=== PATIENT | male | born 1940 | race Caucasian/White ===

== ENCOUNTER 2018-09-11 07:43 | Day surgery (SDC) | payer MEDICARE, OTHER, SELFPAY ==
[2018-09-11] MEDS: PROPARACAINE 0.5% OPHTH SOL 2 DROPS EYE-OP (08:50)
[2018-09-11 08:51] VITALS: BMI 22.4
[2018-09-11] MEDS: CATARACT EYE COMPOUND (10 DROPS/SYRINGE) 3 DROPS EYE-OP (09:00)
[2018-09-11 09:05] VITALS: BP 179/92; PULSE 62; RESP 18; TEMP 36.4; O2SAT 99
--- NOTE | 2018-09-11 09:37 | SUR.OPER ---
Supine on eye stretcher, head on extension cradle secured with tape. Arms tucked at sides with blanket. Pillow under knees.
[2018-09-11] MEDS: CHONDROIDTIN/SOD HYALURONATE 1.05 ML SYRINGE INTRAOCULA (09:39)
[2018-09-11] MEDS: MOXIFLOXACIN OPHTH DROPS 3 ML BOTTLE 2 DROPS INJ (09:40)
[2018-09-11] MEDS: PHENYLEPHRINE/LIDOCAINE VIAL (OR) 0.2 ML EYE-OP (09:40)
[2018-09-11] MEDS: LIDOCAINE JELLY 2% 5 ML 1 APPLIC TOP (09:40)
[2018-09-11] MEDS: BALANCED SALT IRRIG SOLN NO.2 500 ML, EPINEPHrine 1 MG IRR (09:41)
[2018-09-11] MEDS: TRIAMCINOLONE 50 MG/5 ML VIAL INJ (09:41)
[2018-09-11] MEDS: TETRACAINE 0.5% OPHTH DROPS 15 ML 2 DROPS EYE-LEFT (09:41)
--- NOTE | 2018-09-11 09:48 | P.OP.PRE_ITS ---
Pre-operative Note Interval Note Changes: No
--- NOTE | 2018-09-11 09:48 | PM.PREOP ---
Pre-operative Note Interval Note Changes: No
--- NOTE | 2018-09-11 09:49 | P.OP_ITS ---
Operative Date/Time/Diagnoses Pre-op diagnosis: Nuclear Cataract Left eye Post-op diagnosis: same Procedure & Clinicians Surgeon: Kofi Gutierrez Anesthesia Type: MAC +/- and Sedation Operative Notes Procedure in detail: Patient brought to the operating suite. Tetracaine drops placed in the left eye. Patient was prepped and draped in sterile manner. Wire lid speculum was placed in the eye. Betadine drops were placed on the eye. This was irrigated. Lidocaine jelly was placed on the eye. A paracentesis port was created with a side-port blade. 0.1 mL 1% preservative free lidocaine was injected into the anterior chamber. The anterior chamber was deepened with viscoelastic. 2.6 mm keratome was used to create a temporal clear corneal incision. Cystotome and Utrata forceps were used to create continuous tear capsulorrhexis. Balanced salt solution was used to hydro dissect the nucleus. The phacoemulsification handpiece was inserted and the nucleus was removed using the stop and chop technique. The irrigation aspiration handpiece was inserted and the remaining cortex was removed. Anterior chamber was deepened with viscoelastic. An Sol ZCB00 intraocular lens with a power of 19.5 was injected into the capsular bag. Irrigation aspiration handpiece was inserted and the remaining viscoelastic was removed. Incision was hydrated with balanced salt solution and found to be leak free with pressure with Weck- Carolyn sponges. 0.1 mL Vigamox injected anterior chamber. 0.3 mL Kenalog 10 mg was injected subconjunctivally. Lid speculum was removed. The patient left the operating room in excellent condition. Complications: none Condition: stable Disposition: same day surgery
[2018-09-11 09:58] VITALS: BP 153/82; PULSE 54; RESP 18; TEMP 36.3; O2SAT 99
== END 2018-09-11 10:09 | disposition home or self-care (01) ==
LOC: OR 07:51
PROVIDERS: PCP Internal Medicine; Visit Provider Ophthalmology
DX: H25.12 Age-related nuclear cataract, left eye (principal)
CPT/HCPCS: J0171; J2250; J3010; J3301

== ENCOUNTER 2018-09-25 08:37 | Day surgery (SDC) | payer MEDICARE, OTHER, SELFPAY ==
[2018-09-25 09:43] VITALS: BP 182/93; PULSE 56; RESP 16; TEMP 36; O2SAT 98; BMI 22.5
[2018-09-25] MEDS: PROPARACAINE 0.5% OPHTH SOL 2 DROPS EYE-OP (09:48)
[2018-09-25] MEDS: CATARACT EYE COMPOUND (10 DROPS/SYRINGE) 3 DROPS EYE-OP (09:50)
--- NOTE | 2018-09-25 10:56 | P.OP.PRE_ITS ---
Pre-operative Note Interval Note Changes: No
--- NOTE | 2018-09-25 10:56 | P.OP_ITS ---
Operative Date/Time/Diagnoses Pre-op diagnosis: Nuclear cataract right eye Procedure & Clinicians Procedure: Cataract Surgery Same procedure as scheduled: Yes Surgeon: Kofi Gutierrez Anesthesia Type: MAC +/- and Sedation Operative Notes Procedure in detail: Patient brought to the operating suite. Tetracaine drops placed in the right eye. Patient was prepped and draped in sterile manner. Wire lid speculum was placed in the eye. Betadine drops were placed on the eye. This was irrigated. Lidocaine jelly was placed on the eye. A paracentesis port was created with a side-port blade. 0.1 mL 1% preservative free lidocaine was injected into the anterior chamber. The anterior chamber was deepened with viscoelastic. 2.6 mm keratome was used to create a temporal clear corneal incision. Cystotome and Utrata forceps were used to create continuous tear capsulorrhexis. Balanced salt solution was used to hydro dissect the nucleus. The phacoemulsification handpiece was inserted and the nucleus was removed using the stop and chop technique. The irrigation aspiration handpiece was inserted and the remaining cortex was removed. Anterior chamber was deepened with viscoelastic. An Sol ZCB00 intraocular lens with a power of 19.5 was injected into the capsular bag. Irrigation aspiration handpiece was inserted and the remaining viscoelastic was removed. Incision was hydrated with balanced salt solution and found to be leak free with pressure with Weck- Carolyn sponges. 0.1 mL Vigamox injected anterior chamber. 0.3 mL Kenalog 10 mg was injected subconjunctivally. Lid speculum was removed. The patient left the operating room in excellent condition. Complications: none Condition: stable Disposition: same day surgery
--- NOTE | 2018-09-25 10:56 | PM.PREOP ---
Pre-operative Note Interval Note Changes: No
--- NOTE | 2018-09-25 11:05 | SUR.OPER ---
Supine on eye stretcher, head on extension cradle secured with tape. Arms tucked at sides with blanket. Pillow under knees.
[2018-09-25] MEDS: LIDOCAINE JELLY 2% 5 ML 1 APPLIC TOP (11:07)
[2018-09-25] MEDS: CHONDROIDTIN/SOD HYALURONATE 1.05 ML SYRINGE INTRAOCULA (11:07)
[2018-09-25] MEDS: MOXIFLOXACIN OPHTH DROPS 3 ML BOTTLE 2 DROPS INJ (11:07)
[2018-09-25] MEDS: TETRACAINE 0.5% OPHTH DROPS 15 ML 2 DROPS EYE-RIGHT (11:08)
[2018-09-25] MEDS: PHENYLEPHRINE/LIDOCAINE VIAL (OR) 0.2 ML EYE-OP (11:08)
[2018-09-25] MEDS: TRIAMCINOLONE 50 MG/5 ML VIAL INJ (11:09)
[2018-09-25] MEDS: BALANCED SALT IRRIG SOLN NO.2 500 ML, EPINEPHrine 1 MG IRR (11:09)
[2018-09-25 11:22] VITALS: BP 151/91; PULSE 53; RESP 16; TEMP 36.3; O2SAT 99
[2018-09-25 11:39] VITALS: BP 153/88; PULSE 58; RESP 16; TEMP 36; O2SAT 96
== END 2018-09-25 11:44 ==
LOC: OR 08:38
PROVIDERS: PCP Internal Medicine; Visit Provider Ophthalmology
DX: H25.11 Age-related nuclear cataract, right eye (principal)
CPT/HCPCS: J0171; J2250; J3010; J3301

== ENCOUNTER 2022-01-10 07:57 | Inpatient (IN) | payer MEDICARE, OTHER, SELFPAY ==
[2022-01-10] VITALS (15 sets, daily range): BP systolic 135–171; BP diastolic 73–100; PULSE 55–79; RESP 16–22; TEMP 36.1–36.6; O2SAT 93–96; BMI 20.5
--- NOTE | 2022-01-10 08:08 | DI.RAD.S_ITS ---
PROCEDURE: XR CHEST 1V INDICATIONS: shortness of breath TECHNIQUE: One view of the chest was acquired. COMPARISON: None. FINDINGS: Surgical changes and devices: None. Lungs and pleura: Lungs are clear. No pleural effusions or pneumothorax. Mediastinum: Mediastinal contours appear normal. Heart size is normal. Bones and chest wall: No suspicious bony lesions. Overlying soft tissues appear unremarkable. IMPRESSION: No acute cardiopulmonary abnormality. Dictated by: Jaime Harper M.D. on 01/10/2022 at 8:41 Approved by: Jaime Harper M.D. on 01/10/2022 at 8:42
--- NOTE | 2022-01-10 08:23 | ED.SOB ---
HPI - SOB/Dyspnea General Chief Complaint: Shortness of Breath/Dyspnea Stated Complaint: Trouble breathing Time Seen by Provider: 01/10/22 08:09 Source: patient Mode of arrival: Wheelchair Limitations: no limitations History of Present Illness HPI Narrative: This is an 81-year-old male who comes emergency department with complaint of episodes of shortness of breath and chest tightness that started 3 or 4 days ago. It 1st episode he was walking up hill he had to stop it resolved and he returned home he has had 6-7 episodes in the past 3 days he states initially it was just when he was upright or exerting himself when resolved quickly after a minute or 2 the length in strength of the episodes has been increasing. Today it will come up from sleep at 6:00 a.m. persisted and continued even if he took a couple steps it would return. Martin like and squeezing across his chest. He has felt a little bit dizzy and lightheaded but has not had any syncope. No diaphoresis. No nausea or vomiting. No fevers no cold, cough or congestive symptoms. Occasionally has diarrhea but not persistently and no melena or hematochezia. He has not any changes to urine output. He and his have noted some slight redness on the dorsum of his foot and occasional swelling but not persistently. No swelling today but there is some redness they states that is been there for several months. Has a history of stage 4 chronic kidney disease, his only medication is Tylenol. He has a history of hypertension and dyslipidemia but stopped his medications when he had spinal surgery and his family states he was never told to restart them. His average blood pressure is around 120. He does not take any aspirin. No history of diabetes. Had spinal surgery May 2021. He had a DVT during hospitalization for a fever and is suspected to have developed a DVT while in the hospital. He was on Eliquis for 3 months and then stopped then subsequently had his spinal surgery. No allergies to medication. Former smoker quit 40 years ago, has 2 glasses of wine daily, no illicit. His primary care is Dr. Thompson. His coal screener is Dr. Gipson. He and his state that there has been no discussion about dialysis. Related Data Home Medications Medication Instructions Recorded Confirmed acetaminophen 500 mg tablet See Rx Instructions PO DAILY PRN 09/14/21 01/10/22 (Tylenol Extra Strength) tab Allergies Allergy/AdvReac Type Severity Reaction Status Date / Time No Known Drug Allergies Allergy Verified 01/10/22 09:21 Review of Systems Review of Systems ROS Unobtainable: All systems reviewed & are unremarkable except as noted in HPI and below Patient History Medical History Chronic back pain Chronic migraine Chronic renal failure, stage 4 (severe) DVT (deep venous thrombosis) (~12/2020) Mild cognitive impairment Parkinsons disease (~12/2020) Surgical History S/P spinal surgery (~05/2021) Family History Mother No problems noted. Social History household members: spouse Smoking Status: Former smoker Smoking Status: Former smoker alcohol intake frequency: 0-2 drinks per day Alcohol type: wine Substance Use Type: does not use Exam Narrative Exam Narrative: GENERAL: Alert and oriented x three, thin elderly male in mild distress. HEENT: Head normocephalic, atraumatic, EOMI, pupils reactive, face symmetric, moist mucous membranes NECK: Supple, full range of motion CARDIOVASCULAR: Regular rate and rhythm without murmurs, rubs or gallops. No JVD. No swelling bilateral lower extremities. RESPIRATORY: Breath sounds equal bilaterally, no wheezes rales or rhonchi. No tachypnea accessory muscle use. Speaks in full sentences. ABDOMEN: Soft, nontender. Normoactive bowel sounds all 4 quadrants. No guarding or rebound, rigidity, no mass : No CVA tenderness EXTREMITIES: Normal range of motion, no clubbing or edema. Neurovascularly intact. 2+ dorsalis pedis bilaterally. Patient does have some slight erythema over the dorsum of the foot which appears more consistent with hyperpigmentation than cellulitic change. NEUROLOGICAL: Cranial nerves II through XII grossly intact. Moving all extremities SKIN: Warm, dry, no petechiae, no rashes or lesions otherwise noted. Initial Vital Signs Initial Vital Signs: Vital Signs Pulse Rate 75 01/10/22 08:00 Respiratory Rate 18 01/10/22 08:00 Blood Pressure 167/82 H 01/10/22 08:00 Pulse Oximetry 96 01/10/22 08:00 Course Orders Ordered: ED Orders 01/10/22 12:26 EKG-12 Lead DAILY 01/10/22 12:26 EC echo doppler complete Urgent 01/10/22 15:53 PTT [Partial Thromboplastin Time] Q6H Troponin I Q8H 01/11/22 00:30 Troponin I Q8H 01/11/22 03:15 PTT [Partial Thromboplastin Time] Q6H 01/11/22 05:00 Basic Metabolic Panel Routine Hemoglobin and Hematocrit DAILY 01/11/22 09:15 PTT [Partial Thromboplastin Time] Q6H Partial Thromboplastin Time DAILY 01/12/22 09:15 Partial Thromboplastin Time DAILY 01/13/22 09:15 Partial Thromboplastin Time DAILY 01/14/22 09:15 Partial Thromboplastin Time DAILY 01/15/22 09:15 Partial Thromboplastin Time DAILY 01/16/22 09:15 Partial Thromboplastin Time DAILY Acetaminophen (Acetaminophen 325 Mg Tablet) 650 mg PO Q6HR PRN PRN Reason: Pain, Mild (1-3) Heparin Sodium/Dextrose (Heparin Drip) 25,000 unit in 500 mls @ 24 mls/hr IV CONT OFE; Protocol Last Titration: 01/10/22 17:45 Dose: 700 units/hr, 14 mls/hr Documented by: Titration: 01/10/22 16:45 Dose: 0 units/hr, 0 mls/hr Documented by: Titration: 01/10/22 12:18 Dose: 1,000 units/hr, 20 mls/hr Documented by: Titration: 01/10/22 09:48 Dose: 1,000 units/hr, 20 mls/hr Documented by: Admin: 01/10/22 09:21 Dose: 1,200 units/hr, 24 mls/hr Documented by: ROHIT Metoprolol Tartrate (Metoprolol Ir 25 Mg Tablet) 25 mg PO BID [facility] Morphine Sulfate (Morphine 2 Mg/Ml Inj) 2 mg IV Q5MIN PRN PRN Reason: Chest Pain Naloxone HCl (Naloxone 0.4 Mg/Ml Vial) 0.2 mg IV Q2MIN PRN PRN Reason: Opiate Reversal Nitroglycerin (Nitroglycerin 0.4 Mg Sl Tab) 0.4 mg SL [id number] PRN PRN Reason: Chest Pain Nitroglycerin (Nitroglycerin Oint 1 Inch/Gm Oint...G.) 0.5 inch TOP 0900,1500 OFE Last Admin: 01/10/22 16:00 Dose: 0.5 inch Documented by: TAMRA Discontinued Medications Aspirin (Aspirin 81 Mg Chew Tab) 324 mg PO NOW ONE Stop: 01/10/22 09:10 Last Admin: 01/10/22 09:20 Dose: 324 mg Documented by: ROHIT Heparin Sodium (Porcine) (Heparin 5,000 Unit/Ml Vial) 7,500 unit IV NOW ONE Stop: 01/10/22 09:10 Last Admin: 01/10/22 09:19 Dose: 7,500 unit Documented by: ROHIT Reevaluation(s) Reevaluation #1: Spoke with family updated them on findings today. Time: 09:23 Consultations Consultation #1: Dr. Greene, we discussed patient appears to have NSTEMI versus PE, positive troponin, BNP but in the setting of chronic kidney disease and elevated renal function unable to scan for PE. Patient does have a DVT found in his right lower extremity. Recommends aspirin, heparin, echo in V/Q scan, he states based on patient's renal function that troponin is somewhat on reliable and recommends serial trending. In pharmacology goal perfusion scan when appropriate. Time: 09:24 Consultation #2: Dr. Thompson, accepts for admission. And STEMI versus PE. Patient's renal function precludes us from obtaining angiography. Recommendations of Cardiology were discussed. Dr. Thompson will take over care for the patient. He has been started on aspirin as well as heparin he is chest pain-free so has not had any nitro. Vital Signs Vital signs: Vital Signs - 8 hr 01/10/22 08:00 01/10/22 08:15 01/10/22 08:30 Pulse Rate 75 69 66 Respiratory Rate 18 22 20 Blood Pressure 167/82 H 156/75 H 154/84 H Pulse Oximetry 96 96 95 01/10/22 09:00 01/10/22 09:30 01/10/22 10:00 Pulse Rate 68 63 60 Respiratory Rate 19 20 18 Blood Pressure 149/87 H 161/89 H 153/83 H Pulse Oximetry 94 96 95 01/10/22 10:30 Pulse Rate 59 L Respiratory Rate 18 Blood Pressure 152/97 H Pulse Oximetry 95 MDM - SOB/Dyspnea Lab Data Result diagrams: 01/10/22 08:10 01/10/22 08:10 Labs: Lab Results 01/10/22 01/10/22 01/10/22 Range/Units 08:10 08:10 08:10 WBC 6.3 (4.5-11.0) X10^3/uL RBC 4.32 L (4.5-5.9) X10^6/uL Hgb 13.1 L (13.5-17.5) g/dL Hct 38.9 L (41-53) % MCV 89.9 (80-100) fL MCH 30.3 (26-34) PG MCHC 33.7 (30-36) % RDW 14.9 H (11.6-14.8) % Plt Count 138 L (150-400) X10^3/uL Neut % (Auto) 67.3 (50-75) % Lymph % (Auto) 21.1 L (25-40) % [place] % (Auto) 9.2 (3-14) % Eos % (Auto) 1.8 L (2-4) % Baso % (Auto) 0.6 (0-2) % Neut # (Auto) 4200 (9602-2015) /uL Lymph # (Auto) 1300 (4766-5512) /uL [place] # (Auto) 600 (0-900) /uL Eos # (Auto) 100 (0-450) /uL Baso # (Auto) 0 (0-100) /uL APTT (26.4-36.2) SECONDS Sodium 139 (137-145) mmol/L Potassium 4.3 (3.4-5.1) mmol/L Chloride 109 H (98-107) mmol/L Carbon Dioxide 18 L (22-32) mmol/L BUN 40 H (9-20) mg/dL Creatinine 2.97 H (0.66-1.25) mg/dL Estimated GFR 20.4 L (>60) mL/min BUN/Creatinine Ratio 13.5 (6-22) Glucose 112 H (80-110) mg/dL Lactate 2.4 H (0.7-2.1) mmol/L Calcium 9.6 (8.4-10.2) mg/dL Total Bilirubin 0.7 (0.2-1.3) mg/dL AST 58 (17-59) IU/L ALT 31 (<50) IU/L Alkaline Phosphatase 96 (38-126) U/L Total Creatine Kinase (55-170) U/L CK-MB (CK-2) (<2.37) ng/mL CK-MB (CK-2) Rel Index (1.5-5.0) % Troponin I (0.01-0.034) ng/mL NT-Pro-B Natriuret Pep (<450) pg/mL Total Protein 8.0 (6.3-8.2) g/dL Albumin 4.5 (3.5-5.0) g/dL Globulin 3.5 (1.7-4.1) g/dL Albumin/Globulin Ratio 1.3 (1.0-2.8) SARS-CoV-2 (PCR) (Negative) 01/10/22 01/10/22 01/10/22 Range/Units 08:10 08:26 08:30 WBC (4.5-11.0) X10^3/uL RBC (4.5-5.9) X10^6/uL Hgb (13.5-17.5) g/dL Hct (41-53) % MCV (80-100) fL MCH (26-34) PG MCHC (30-36) % RDW (11.6-14.8) % Plt Count (150-400) X10^3/uL Neut % (Auto) (50-75) % Lymph % (Auto) (25-40) % [place] % (Auto) (3-14) % Eos % (Auto) (2-4) % Baso % (Auto) (0-2) % Neut # (Auto) (9456-6728) /uL Lymph # (Auto) (3884-1656) /uL [place] # (Auto) (0-900) /uL Eos # (Auto) (0-450) /uL Baso # (Auto) (0-100) /uL APTT 34 (26.4-36.2) SECONDS Sodium (137-145) mmol/L Potassium (3.4-5.1) mmol/L Chloride (98-107) mmol/L Carbon Dioxide (22-32) mmol/L BUN (9-20) mg/dL Creatinine (0.66-1.25) mg/dL Estimated GFR (>60) mL/min BUN/Creatinine Ratio (6-22) Glucose (80-110) mg/dL Lactate (0.7-2.1) mmol/L Calcium (8.4-10.2) mg/dL Total Bilirubin (0.2-1.3) mg/dL AST (17-59) IU/L ALT (<50) IU/L Alkaline Phosphatase (38-126) U/L Total Creatine Kinase 110 (55-170) U/L CK-MB (CK-2) 5.10 H (<2.37) ng/mL CK-MB (CK-2) Rel Index 4.6 (1.5-5.0) % Troponin I 0.159 H* (0.01-0.034) ng/mL NT-Pro-B Natriuret Pep 5540 H (<450) pg/mL Total Protein (6.3-8.2) g/dL Albumin (3.5-5.0) g/dL Globulin (1.7-4.1) g/dL Albumin/Globulin Ratio (1.0-2.8) SARS-CoV-2 (PCR) Negative (Negative) Imaging Data Chest x-ray: Radiologist's Impression: [address] [address] XRay Report Signed Patient: Drew Bradford MR#: [id number] : 1940 Acct:[id number] Age/Sex: 81 / M Date of Service: 01/10/22 Loc: ED Accession Number: [id number] ?? Procedure: XR chest 1V Ordering Provider: Elle Saavedra D.O. PROCEDURE:? XR CHEST 1V ? INDICATIONS:? shortness of breath ? TECHNIQUE:? One view of the chest was acquired.? ? COMPARISON:? None. ? FINDINGS:? ? Surgical changes and devices:? None.? ? Lungs and pleura:? Lungs are clear.? No pleural effusions or pneumothorax.? ? Mediastinum:? Mediastinal contours appear normal.? Heart size is normal.? ? Bones and chest wall:? No suspicious bony lesions.? Overlying soft tissues appear unremarkable.? ? IMPRESSION:? No acute cardiopulmonary abnormality. ? ? ? Dictated by: Jaime Harper M.D. on 01/10/2022 at 8:41 ? ? Approved by: Jaime Harper M.D. on 01/10/2022 at 8:42 ECG Data Attestation: I personally reviewed and interpreted this ECG as follows: Interpretation: Sinus rhythm rate of 74, [place] 154 QRS 88 QTC 461. Inverted T-wave in 3, flattened in AVF. Depression in V6 with beat to beat variability in V5. MDM Narrative Medical decision making narrative: 81-year-old male comes to the emergency department with complaint of trouble breathing. He elevated troponin, concerns for possible PE he does have risk factors and was found have a DVT in his ultrasound today. He was started on heparin and a PE protocol and is also treated for NSTEMI with aspirin he is without chest pain or shortness of breath at this time so no nitro was initiated. Case was discussed with Cardiology, hospitalist and patient is admitted. Critical Care Time Critical Care Time Critical Care Time: Yes Total Critical Care Time: 45 Attestation: The high probability of a clinically significant, sudden or life threatening deterioration of the [cardiac, pulm] system(s) required my full and direct attention, intervention and personal management. The aggregate critical care time was [] minutes. This time is in addition to time spent performing reported procedures but includes the following: [x] Data Review and interpretation [x] Patient assessment and monitoring of vital signs [x] Documentation [x] Medication orders and management Discharge Plan Departure Patient Disposition: Admitted As Inpatient Clinical Impression: Non-ST elevation DE (NSTEMI), DVT of leg (deep venous thrombosis), Pulmonary embolism Admit Date/Time: 01/10/22 10:57 Admit Provider: aPsha Thompson
[2022-01-10 08:28] LABS: Add Manual Diff / Slide Review NO; Basophils Absolute Auto 0 /uL (0-100); Basophils Percent Auto 0.6 % (0-2); Eosinophils Absolute Auto 100 /uL (0-450); Eosinophils Percent Auto 1.8 % (2-4); Hematocrit 38.9 % (41-53); Hemoglobin 13.1 g/dL (13.5-17.5); Lymphocytes Absolute Auto 1300 /uL (1100-4500); Lymphocytes Percent Auto 21.1 % (25-40); Mean Corpuscular HGB Conc 33.7 % (30-36); Mean Corpuscular Hemoglobin 30.3 PG (26-34); Mean Corpuscular Volume 89.9 fL (80-100); Monocytes Absolute Auto 600 /uL (0-900); Monocytes Percent Auto 9.2 % (3-14); Neutrophils Absolute Auto 4200 /uL (1500-7000); Neutrophils Percent Auto 67.3 % (50-75); Platelet Count 138 X10^3/uL (150-400); Red Blood Cell Count 4.32 X10^6/uL (4.5-5.9); Red Cell Distribution Width 14.9 % (11.6-14.8); White Blood Cell Count 6.3 X10^3/uL (4.5-11.0)
[2022-01-10 08:38] LABS: Lactate (Lactic Acid) 2.4 mmol/L (0.7-2.1)
--- NOTE | 2022-01-10 08:39 | DI.US.S_ITS ---
PROCEDURE: US PERIPH VENOUS LOW EXTREM BI INDICATIONS: SOB; RIGHT FOOT DISCOLORATION TECHNIQUE: Real-time imaging, as well as color and pulse Doppler interrogation, were performed of the deep veins of both legs from the inguinal ligament to the popliteal fossa. COMPARISON: None. FINDINGS: Right: Thrombus is identified within the mid/distal superficial femoral vein extending to the popliteal vein. Left: The common femoral, femoral and popliteal veins are normally compressible, and free of intraluminal thrombus. Color and pulse Doppler demonstrate normal phasic intravascular flow. There is normal augmentation response to distal compression maneuver. IMPRESSION: Thrombosis is present within the right mid superficial vein extending to the popliteal vein. Dictated by: Vicki Landa M.D. on 01/10/2022 at 9:22 Approved by: Vicki Landa M.D. on 01/10/2022 at 9:23
[2022-01-10 08:40] LABS: Alanine Aminotransferase 31 IU/L (<50); Albumin 4.5 g/dL (3.5-5.0); Albumin Globulin Ratio 1.3 (1.0-2.8); Alkaline Phosphatase 96 U/L (38-126); Aspartate Aminotransferase 58 IU/L (17-59); BUN Creatinine Ratio 13.5 (6-22); Bilirubin Total 0.7 mg/dL (0.2-1.3); Blood Urea Nitrogen 40 mg/dL (9-20); Calcium 9.6 mg/dL (8.4-10.2); Carbon Dioxide 18 mmol/L (22-32); Chloride 109 mmol/L (98-107); Estimated Glomerular Filt Rate 20.4 mL/min (>60); Globulin 3.5 g/dL (1.7-4.1); Glucose 112 mg/dL (80-110); HEMOLYSIS < 15 (0-50); Potassium 4.3 mmol/L (3.4-5.1); Sodium 139 mmol/L (137-145)
[2022-01-10 08:46] LABS: Creatine Kinase 110 U/L (55-170)
[2022-01-10 08:59] LABS: NT-proBNP (BNP-Adult 18+) 5540 pg/mL (<450)
[2022-01-10 09:02] LABS: CKMB % Relative Index 4.6 % (1.5-5.0)
[2022-01-10 09:04] LABS: COVID19 -Nasal RAPID Negative (Negative)
[2022-01-10 09:04] LABS: Troponin I 0.159 ng/mL (0.01-0.034)
[2022-01-10] MEDS: HEPARIN 5,000 UNIT/ML VIAL 7500 UNIT IV (09:19)
[2022-01-10] MEDS: ASPIRIN 81 MG CHEW TAB 324 MG PO (09:20)
[2022-01-10] MEDS: HEPARIN DRIP 25,000 UNIT/500 ML IV.SOLN 24 UNIT IV (09:21)
[2022-01-10 09:25] LABS: PTT Partial Thromboplastin Tim 34 SECONDS (26.4-36.2)
--- NOTE | 2022-01-10 09:53 | PC.NURSE ---
Consulted with Charlotte, PaigeD, on dose titration for PE protocol heparin drip. Due to patient's age (over 75 years) and hx of Parkinson's, will adjust rate down to 1000 unit/hour and titrate, per protocol. Physician aware.
[2022-01-10 10:18] LABS: Reflexed Lactate in 2 Hours Y
--- NOTE | 2022-01-10 11:04 | P.HP_ITS ---
History of Present Illness History of Present Illness Date Patient Seen: 01/10/22 Time Patient Seen: 11:05 Chief complaint: Trouble breathing Narrative: 81-year-old male who presented to the emergency department with symptoms of episodic shortness of breath. Patient reports symptoms began about 5 days prior to admission. Was out walking his dog the first time. He gets this episodic inability to catch his breath that lasts generally very briefly. The morning of admission however much more prolonged that did not resolve until sometime when he was in the ER. He apparently who is reporting increasing symptoms over the last several days. Denies having any chest pain. Denies any syncope near syncope lightheadedness or dizziness. Evaluation in the emergency department revealed a superficial femoral clot with some extension into the popliteal and a borderline elevated troponin as well as his known chronic renal failure which appears to be stable. Patient also with nonspecific ST-T segment changes on his ECG, with no prior tracing available for comparison After discussion with Cardiology was elected to admit him for trending of his troponins anticoagulation with unfractionated heparin given his renal dysfunction a consideration of V/Q scanning for pulmonary embolism as CT scanning is contraindicated with his renal dysfunction. Patient History Medical History Chronic back pain Chronic migraine Chronic renal failure, stage 4 (severe) DVT (deep venous thrombosis) (~12/2020) Mild cognitive impairment Parkinsons disease (~12/2020) Surgical History S/P spinal surgery (~05/2021) Family & Social History Family History Mother No problems noted. Social History: household members spouse Safety & Behavioral: Feels Safe in Current Yes Environment Tobacco & Substance use: Smoking Status Former smoker alcohol intake frequency 0-2 drinks per day Substance Use Type does not use Meds Home Medications and Allergies Home Medications Medication Instructions Recorded Confirmed Type acetaminophen 500 mg tablet See Rx Instructions PO DAILY PRN 09/14/21 01/10/22 History (Tylenol Extra Strength) tab Allergies Allergy/AdvReac Type Severity Reaction Status Date / Time No Known Drug Allergies Allergy Verified 01/10/22 09:21 Review of Systems Review of Systems ROS: Yes All systems reviewed with the patient and are negative except as otherwise documented Exam Vital Signs (past 8 hours): - 01/10/22 08:00 01/10/22 08:15 01/10/22 08:30 Pulse Rate 75 69 66 Respiratory Rate 18 22 20 Blood Pressure 167/82 H 156/75 H 154/84 H Pulse Oximetry 96 96 95 01/10/22 09:00 01/10/22 09:30 01/10/22 10:00 Pulse Rate 68 63 60 Respiratory Rate 19 20 18 Blood Pressure 149/87 H 161/89 H 153/83 H Pulse Oximetry 94 96 95 01/10/22 10:30 Pulse Rate 59 L Respiratory Rate 18 Blood Pressure 152/97 H Pulse Oximetry 95 Oxygen Delivery Method Room Air Narrative Exam Narrative: Elderly male in no obvious distress lying in his hospital bed HEENT-normocephalic atraumatic PERRLA EOMs intact Neck-no lymphadenopathy no bruits Lungs-clear with good breath sounds Heart-regular rate and rhythm with what sounds like extrasystoles no murmur Abdomen-positive bowel tones soft nontender nondistended Extremities-resting tremor, mild erythema distal right foot, no edema present wh atsoever either lower extremity no cords or tenderness along the back of either leg Objective Labs Result Diagrams: 01/11/22 05:05 01/11/22 05:05 Labs: Laboratory Results - last 24 hr 01/10/22 01/10/22 01/10/22 08:10 08:10 08:10 WBC 6.3 RBC 4.32 L Hgb 13.1 L Hct 38.9 L MCV 89.9 MCH 30.3 MCHC 33.7 RDW 14.9 H Plt Count 138 L Neut % (Auto) 67.3 Lymph % (Auto) 21.1 L [place] % (Auto) 9.2 Eos % (Auto) 1.8 L Baso % (Auto) 0.6 Neut # (Auto) 4200 Lymph # (Auto) 1300 [place] # (Auto) 600 Eos # (Auto) 100 Baso # (Auto) 0 APTT Sodium 139 Potassium 4.3 Chloride 109 H Carbon Dioxide 18 L BUN 40 H Creatinine 2.97 H Estimated GFR 20.4 L BUN/Creatinine Ratio 13.5 Glucose 112 H Lactate 2.4 H Calcium 9.6 Total Bilirubin 0.7 AST 58 ALT 31 Alkaline Phosphatase 96 Total Creatine Kinase CK-MB (CK-2) CK-MB (CK-2) Rel Index Troponin I NT-Pro-B Natriuret Pep Total Protein 8.0 Albumin 4.5 Globulin 3.5 Albumin/Globulin Ratio 1.3 SARS-CoV-2 (PCR) 01/10/22 01/10/22 01/10/22 08:10 08:26 08:30 WBC RBC Hgb Hct MCV MCH MCHC RDW Plt Count Neut % (Auto) Lymph % (Auto) [place] % (Auto) Eos % (Auto) Baso % (Auto) Neut # (Auto) Lymph # (Auto) [place] # (Auto) Eos # (Auto) Baso # (Auto) APTT 34 Sodium Potassium Chloride Carbon Dioxide BUN Creatinine Estimated GFR BUN/Creatinine Ratio Glucose Lactate Calcium Total Bilirubin AST ALT Alkaline Phosphatase Total Creatine Kinase 110 CK-MB (CK-2) 5.10 H CK-MB (CK-2) Rel Index 4.6 Troponin I 0.159 H* NT-Pro-B Natriuret Pep 5540 H Total Protein Albumin Globulin Albumin/Globulin Ratio SARS-CoV-2 (PCR) Negative Assessment & Plan Assessment & Plan narrative: 1. Episodic dyspnea-this point I agree that the elevated troponin could be secondary to his renal dysfunction as much as anything else. I think minor changes in ECG are not necessarily ischemic. I think trending troponin over time make sense and obtaining echocardiography also make sense. Might see on the echo whether not there is any evidence of pulmonary hypertension or right heart strain that would suggest patient does actually have a pulmonary embolism etcetera. If negative workup pulmonary embolism, consider myocardial perfusion scan as well. Patient's ultrasound of his right lower extremity not necessarily consistent with true DVT as appears to be more superficial. However he would benefit from anticoagulation as above for cardiac as well as potential pulmonary embolism/DVT reasons. Patient was previously on Eliquis although it is my understanding that this is contraindicated with his degree of renal dysfunction and warfarin is preferred. This point however my concern about possible DVT/pulmonary embolism is quite low as his symptoms do not really fit and his ultrasound I think shows a superficial clot not a deep vein thrombosis 2. Chronic renal failure stage 4-patient's numbers appear to be a baseline. He follows locally with Dr. ANJUM Echevarria. This however is preventing further evaluation for possible PE etcetera with CT scan etcetera. 3. Parkinson's-patient with mild symptoms and not on any medication at this point. 4. Code status-full code in the event of sudden cardiac or respiratory arrest which is not anticipated 5. VTE prophylaxis-since started on full-dose unfractionated heparin for potential cardiac reasons. Therefore VTE prophylaxis is not indicated Patient deserves inpatient hospitalization given his multiple medical issues as above need for further evaluation and treatment available in hospital. Clearly be in the hospital greater than 48 hours to include 2 separate midnights Time Spent With Patient Critical Care time: I spent a total of [] minutes of critical care time on this patient's care today; this time is exclusive of procedural time.
[2022-01-10 11:41] LABS: Lactate 2HR (Lactic Acid Rflx) 1.2 mmol/L (0.7-2.1)
--- NOTE | 2022-01-10 12:22 | PC.NURSE ---
Heparin drip continued upon transfer to room upstairs.
--- NOTE | 2022-01-10 12:26 | DI.ECHO.S_ITS ---
[facility]---------[facility] +---------+ : : [address] [place] : : : : [id number] : : : : Phone: [phone]+ Echocardiogram Report + + :Name: LARON JOHNSON Study Date: 01/11/2022 Height: 74 in : :[facility] ReadingLocation: Weight: 160 lb : : Gender: Male BSA: 2.0 m2 : :: 1940 Age: 81 yrs BP: 159/86 mmHg: :Reason For Study: CHEST PAIN : :Ordering Physician: EUGENIO, : :PRATIBHA Robins Performed By: Esme Humphreys : :Referring: PRATIBHA BECKER : + + Interpretation Summary The left ventricle is normal in size. The ejection fraction is estimated to be 55-60%. The interventricular septum is flattened, consistent with a right ventricular pressure overload condition. The right ventricle is grossly normal size. Right ventricular systolic function is mildly reduced. There is mild to moderate tricuspid regurgitation. The right ventricular systolic pressure is estimated to be at least 60 mmHg based on an estimated right atrial pressure of 3 mm Hg. There is moderate-severe pulmonary hypertension. Mild atherosclerotic plaque(s) in the aortic arch. Procedure: A two-dimensional transthoracic echocardiogram with color flow and Doppler was performed. The study quality was technically adequate. There is no prior echocardiogram noted for this patient. The patient was in sinus rhythm with heart rates between 60-70 bpm during the exam. Left Ventricle: The left ventricle is normal in size. Left ventricular wall thickness is mildly increased. There is no thrombus. The ejection fraction is estimated to be 55-60%. The interventricular septum is flattened, consistent with a right ventricular pressure overload condition. Diastolic parameters suggest a relaxation abnormality of the left ventricle, consistent with probable normal filling pressures. Right Ventricle: The right ventricle is grossly normal size. Right ventricular systolic function is mildly reduced. There appears to be hypokinesis of mid to distal free RV wall. Atria: The left atrial size is normal. The right atrium is borderline dilated. There is no Doppler evidence for an interatrial shunt. Mitral Valve: The mitral valve leaflets are slightly calcified. There is trace mitral regurgitation. Aortic Valve: The aortic valve is trileaflet. The aortic valve opens well. There is no aortic valve stenosis. No aortic regurgitation is present. Tricuspid Valve: The tricuspid valve is normal. There is mild to moderate tricuspid regurgitation. The right ventricular systolic pressure is estimated to be at least 60 mmHg based on an estimated right atrial pressure of 3 mm Hg. There is moderate-severe pulmonary hypertension. Pulmonic Valve: The pulmonic valve leaflets are thin and pliable; valve motion is normal. There is no pulmonic valvular regurgitation. Great Vessels: The aortic root is normal size. The ascending aorta could not be visualized. Mild atherosclerotic plaque(s) in the aortic arch. The IVC is of normal diameter and collapses greater than 50% with a sniff. This suggests a low right atrial pressure of 3 mm Hg. Pericardium/ Pleura There is no pericardial effusion. There is no pleural effusion. MMode/2D Measurements & Calculations LVIDd: 3.9 cm LVOT diam: 2.3 cm LVIDs: 2.7 cm Ao root diam: 3.4 cm FS: 30.5 % Ao Arch Diam (Prox Trans): 2.9 cm IVSd: 0.96 cm LVPWd: 1.2 cm LV guo. diameter/BSA (cm/m^2): 2.0 LV sys. diameter/BSA (cm/m^2): 1.4 LA A2 area: 19.7 cm2 RA long axis: 6.1 cm LA A4 area: 17.0 cm2 RA area: 21.0 cm2 LA length (vol): 5.5 cm RA vol: 61.0 ml LA vol: 51.9 ml RA : 30.8 ml/m2 LA vol index: 26.3 ml/m2 IVC diam: 1.5 cm RVD1 (basal): 3.4 cm TAPSE: 1.9 cm Doppler Measurements & Calculations Ao V2 max: 106.5 cm/sec LVOT Max Paco: 73.8 cm/sec Ao V2 mean: 75.1 cm/sec LV V1 max P.2 mmHg Ao max P.5 mmHg LV V1 VTI: 15.3 cm Ao mean P.5 mmHg LOUIS(I,D): 3.2 cm2 Ao V2 VTI: 20.0 cm LOUIS(V,D): 2.9 cm2 sev ratio: 0.77 LOUIS indexed to BSA (cm^2/m^2): 1.6 MV E max paco: 42.5 cm/sec TR max paoc: 376.0 cm/sec MV A max paco: 69.6 cm/sec TR max P.6 mmHg MV E/A: 0.61 Med Peak E' Paco: 5.0 cm/sec E/E' med: 8.6 Lat Peak E' Paco: 5.4 cm/sec E/E' lat: 7.9 E/e' average: 8.2 MV dec time: 0.38 sec SV(OT): 64.7 ml Reading Physician:02:04 PM
[2022-01-10] MEDS: NITROGLYCERIN OINT 1 INCH/GM OINT...G. 0.5 INCH TOP (16:00)
[2022-01-10 16:43] LABS: PTT Partial Thromboplastin Tim 213 SECONDS (26.4-36.2)
[2022-01-10 16:48] LABS: Troponin I 0.947 ng/mL (0.01-0.034)
--- NOTE | 2022-01-10 18:05 | PC.NURSE ---
Evening Shift Note 1226 Patient arrived to floor from ED, no complaints of pain/discomfort, RA, Heparin gtt at 1000u/hr (20ml/hr), ptt due at 1515 1544 This RN placed call to lab, ptt not drawn and cancelled by lab, lab to draw STAT 1643 Ptt reported to this RN, ptt 213, troponin 0.947, patient asymptomatic no complaints of chest pain or shortness of breath, VSS. 1645 Heparin gtt stopped for 1 hour per heparin gtt protocol, MD Thompson paged, awaiting call back. 1745 Heparin gtt restarted at 700u/hr (14ml/hr) per heparin gtt protocol. banquet server on call MD Reyez paged, new orders to initiate PO metoprolol. Orders initiated by this RN, will continued to monitor.
[2022-01-10] MEDS: METOPROLOL IR 25 MG TABLET PO (21:05)
[2022-01-10 22:56] LABS: PTT Partial Thromboplastin Tim 56 SECONDS (26.4-36.2)
[2022-01-10] MEDS: HEPARIN 5,000 UNIT/ML VIAL 2000 UNIT IV (23:40)
[2022-01-11] VITALS (7 sets, daily range): BP systolic 113–163; BP diastolic 68–80; PULSE 56–61; RESP 16; TEMP 36.2–36.6; O2SAT 93–99
[2022-01-11 01:30] LABS: Troponin I 0.684 ng/mL (0.01-0.034)
[2022-01-11 06:23] LABS: Hematocrit 35.2 % (41-53); Hemoglobin 11.8 g/dL (13.5-17.5)
[2022-01-11 06:26] LABS: PTT Partial Thromboplastin Tim 55 SECONDS (26.4-36.2)
[2022-01-11 06:31] LABS: BUN Creatinine Ratio 13.8 (6-22); Blood Urea Nitrogen 38 mg/dL (9-20); Calcium 9.3 mg/dL (8.4-10.2); Carbon Dioxide 21 mmol/L (22-32); Chloride 110 mmol/L (98-107); Estimated Glomerular Filt Rate 22.3 mL/min (>60); Glucose 78 mg/dL (80-110); HEMOLYSIS < 15 (0-50); Potassium 4.4 mmol/L (3.4-5.1); Sodium 137 mmol/L (137-145)
[2022-01-11] MEDS: HEPARIN 5,000 UNIT/ML VIAL 2000 UNIT IV (07:01)
--- NOTE | 2022-01-11 08:00 | P.PN_ITS ---
Subjective Subjective Date Patient Seen: 01/11/22 Time Patient Seen: 08:00 Interval history: Patient had uneventful day yesterday. No recurrence of his respiratory symptoms which is what prompted him to come to the hospital. Course he has not been active. He did have a slight bump in his troponin which is now gone the other direction as of this morning. Again he remains asymptomatic. EKG not yet done this morning Exam Vital Signs (past 8 hours): - 01/11/22 05:07 Temperature 97.1 F L Pulse Rate 56 L Respiratory Rate 16 Blood Pressure 113/73 Pulse Oximetry 99 Oxygen Delivery Method Room Air Oxygen Flow Rate 0 Objective Labs Result Diagrams: 01/11/22 05:05 01/11/22 05:05 Labs: Laboratory Results - last 24 hr 01/10/22 01/10/22 01/10/22 08:10 08:10 08:10 WBC 6.3 RBC 4.32 L Hgb 13.1 L Hct 38.9 L MCV 89.9 MCH 30.3 MCHC 33.7 RDW 14.9 H Plt Count 138 L Neut % (Auto) 67.3 Lymph % (Auto) 21.1 L [place] % (Auto) 9.2 Eos % (Auto) 1.8 L Baso % (Auto) 0.6 Neut # (Auto) 4200 Lymph # (Auto) 1300 [place] # (Auto) 600 Eos # (Auto) 100 Baso # (Auto) 0 APTT Sodium 139 Potassium 4.3 Chloride 109 H Carbon Dioxide 18 L BUN 40 H Creatinine 2.97 H Estimated GFR 20.4 L BUN/Creatinine Ratio 13.5 Glucose 112 H Lactate 2.4 H Calcium 9.6 Magnesium Total Bilirubin 0.7 AST 58 ALT 31 Alkaline Phosphatase 96 Total Creatine Kinase CK-MB (CK-2) CK-MB (CK-2) Rel Index Troponin I NT-Pro-B Natriuret Pep Total Protein 8.0 Albumin 4.5 Globulin 3.5 Albumin/Globulin Ratio 1.3 SARS-CoV-2 (PCR) 01/10/22 01/10/22 01/10/22 08:10 08:26 08:30 WBC RBC Hgb Hct MCV MCH MCHC RDW Plt Count Neut % (Auto) Lymph % (Auto) [place] % (Auto) Eos % (Auto) Baso % (Auto) Neut # (Auto) Lymph # (Auto) [place] # (Auto) Eos # (Auto) Baso # (Auto) APTT 34 Sodium Potassium Chloride Carbon Dioxide BUN Creatinine Estimated GFR BUN/Creatinine Ratio Glucose Lactate Calcium Magnesium Total Bilirubin AST ALT Alkaline Phosphatase Total Creatine Kinase 110 CK-MB (CK-2) 5.10 H CK-MB (CK-2) Rel Index 4.6 Troponin I 0.159 H* NT-Pro-B Natriuret Pep 5540 H Total Protein Albumin Globulin Albumin/Globulin Ratio SARS-CoV-2 (PCR) Negative 01/10/22 01/10/22 01/10/22 11:12 15:53 15:53 WBC RBC Hgb Hct MCV MCH MCHC RDW Plt Count Neut % (Auto) Lymph % (Auto) [place] % (Auto) Eos % (Auto) Baso % (Auto) Neut # (Auto) Lymph # (Auto) [place] # (Auto) Eos # (Auto) Baso # (Auto) APTT 213 H* D Sodium Potassium Chloride Carbon Dioxide BUN Creatinine Estimated GFR BUN/Creatinine Ratio Glucose Lactate 1.2 Calcium Magnesium Total Bilirubin AST ALT Alkaline Phosphatase Total Creatine Kinase CK-MB (CK-2) CK-MB (CK-2) Rel Index Troponin I 0.947 H* NT-Pro-B Natriuret Pep Total Protein Albumin Globulin Albumin/Globulin Ratio SARS-CoV-2 (PCR) 01/10/22 01/11/22 01/11/22 22:35 00:31 05:05 WBC RBC Hgb 11.8 L Hct 35.2 L MCV MCH MCHC RDW Plt Count Neut % (Auto) Lymph % (Auto) [place] % (Auto) Eos % (Auto) Baso % (Auto) Neut # (Auto) Lymph # (Auto) [place] # (Auto) Eos # (Auto) Baso # (Auto) APTT 56 H D Sodium Potassium Chloride Carbon Dioxide BUN Creatinine Estimated GFR BUN/Creatinine Ratio Glucose Lactate Calcium Magnesium Total Bilirubin AST ALT Alkaline Phosphatase Total Creatine Kinase CK-MB (CK-2) CK-MB (CK-2) Rel Index Troponin I 0.684 H* NT-Pro-B Natriuret Pep Total Protein Albumin Globulin Albumin/Globulin Ratio SARS-CoV-2 (PCR) 01/11/22 01/11/22 01/11/22 05:05 05:05 05:05 WBC RBC Hgb Hct MCV MCH MCHC RDW Plt Count Neut % (Auto) Lymph % (Auto) [place] % (Auto) Eos % (Auto) Baso % (Auto) Neut # (Auto) Lymph # (Auto) [place] # (Auto) Eos # (Auto) Baso # (Auto) APTT 55 H Sodium 137 Potassium 4.4 Chloride 110 H Carbon Dioxide 21 L BUN 38 H Creatinine 2.75 H Estimated GFR 22.3 L BUN/Creatinine Ratio 13.8 Glucose 78 L Lactate Calcium 9.3 Magnesium 2.0 Total Bilirubin AST ALT Alkaline Phosphatase Total Creatine Kinase CK-MB (CK-2) CK-MB (CK-2) Rel Index Troponin I NT-Pro-B Natriuret Pep Total Protein Albumin Globulin Albumin/Globulin Ratio SARS-CoV-2 (PCR) [facility] Medical History Chronic back pain Chronic migraine Chronic renal failure, stage 4 (severe) DVT (deep venous thrombosis) (~12/2020) Mild cognitive impairment Parkinsons disease (~12/2020) Surgical History S/P spinal surgery (~05/2021) Family History Mother No problems noted. Social History household members: spouse Smoking Status: Former smoker Assessment & Plan Assessment & Plan narrative: 1. Respiratory-and I do not believe patient has an active respiratory issue. Seems unlikely to me that he has a pulmonary embolism will follow through with V/Q scanning so that we may discontinue IV heparin. I do not believe he has a DVT either as his ultrasound showed a more superficial clot. This may deserve follow-up prior to discharge to ensure he is not progression of his clot. 2. Cardiac-is much more likely etiology for his symptoms. Troponin peaked at 0.9 is coming back down. ECG pending this morning. Once we have cleared his lungs will plan to do myocardial perfusion imaging probably with Lexiscan. Echocardiogram still pending as well. Patient not a very good candidate for a ngiography given his renal dysfunction and certainly would start with noninvasive methods of diagnosis first 3. Renal-patient's renal function appears to be a baseline. Slightly improved over yesterday. 4. Parkinsonism-patient minimally symptomatic at this time. Is on no chronic medications. Not an active issue. Note: Greater than 30 minutes total time was spent on day of service, evaluating the patient on the floor, including examining the patient, discussing clinical course with clinical and nursing staff, reviewing clinical course in the computer, preparing documentation and writing orders for continued management of care, discussing status with family as appropriate, reviewing plans for the next 24 hours with both patient/family and nursing staff as appropriate.
--- NOTE | 2022-01-11 09:07 | DI.NM.S_ITS ---
PROCEDURE: NM BENSON PERF SPECT R&S PHARM Rest and pharmacological stress myocardial perfusion SPECT with gated imaging and ejection fraction RADIOPHARMACEUTICAL: 10.6 mCi Tc-99m tetrafosmin IV at rest and 27.5 mCi Tc-99m tetrafosmin IV at peak effect of pharmacological stress. [id number] was performed. INDICATIONS: chest pain TECHNIQUE: Radiopharmaceutical was injected at peak stress test, and also at rest. SPECT images were obtained. SPECT myocardial perfusion images were displayed in short axis, horizontal long axis, and vertical long axis views. Gated images were reviewed using [employer] software. COMPARISON: None. CARDIAC STRESS: A pharmacologic stress test was performed under the supervision of an attending staff, using an infusion of regadenoson. Hemodynamic data: There is normal blood pressure and heart rate response to pharmacologic stress. Symptoms: The patient mild dyspnea and chest pressure. EKG: No diagnostic changes of ischemia; no ectopy. FINDINGS: Raw data: There is good myocardial uptake of radiotracer. No significant motion artifacts. Nrgm-ae-mcbgi ratio is 0.19 (normal is less than 0.38 for tetrafosmin tracer). Left ventricle function: Gated images demonstrate normal left ventricular wall thickening. No segmental wall motion abnormalities. No transient ischemic dilation; TID is 0.84 (normal less than 1.3). Left ventricle resting end diastolic volume is 85 mL. Left ventricle stress ejection fraction is 75%; normal range is above 45%. Myocardial perfusion: There is normal distribution of activity in the right and left ventricular myocardium. No fixed or reversible perfusion defects. IMPRESSION: No evidence of pharmacologic induced ischemia or scar. Near hyperdynamic LV function. Dictated by: Lina Caraballo D.O. on 01/12/2022 at 14:34 Approved by: Lina Caraballo M.D. on 01/12/2022 at 14:38
[2022-01-11] MEDS: METOPROLOL IR 25 MG TABLET PO ×2 (10:46→20:51)
[2022-01-11 12:39] LABS: PTT Partial Thromboplastin Tim 85 SECONDS (26.4-36.2)
--- NOTE | 2022-01-11 16:23 | CM.DANOTE ---
DCP Assessment Patient is 81 y/o male who presents to this hospital with concern for chest pain and Dvt. Patient's PCP is Dr. Thompson and patient has Medicare and for insurance. Patient has f/u PCP appt on 03/28/22. Patient is A/Ox3 and endorses she he resides at home with his . Patient denies any issues at home and denies d/c needs at this time. It is reported that patient will have upcoming stress test to determine d/c. Patient endorses he is eager to return home to his . Plan: Patient to d/c to home with when medically clear. ZI Overton Discharge Planning/Care Management Advanced directive, confirm from FAMILY Start: 01/10/22 12:48 Freq: Q24H Status: Active Protocol: Document 01/10/22 19:00 MW (Rec: 01/10/22 23:35 MW [id number]) Advance Directive, confirm on record Time 19:00 Person contacted pt Copy received No CM Discharge Assessment Start: 01/11/22 16:20 Freq: Status: Active Protocol: Document 01/11/22 16:20 LN (Rec: 01/11/22 16:22 LN [id number]) Discharge Planning Assessment Assigned [employer] Worker ZI Lowery Advance Directives? No Advance Directives on File No History Provided By Patient,Medical Record Has Patient been admitted in last 30 No days? Prior Living Arrangements House Household Members spouse Type of transporation used prior to Drives own vehicle admit Independent with ADL's Yes Is patient alert and oriented? Yes Comment patient endorses there are no issues at home. Please Provide Date Initial DC 01/11/22 Assessment Was Performed
[2022-01-11] MEDS: HEPARIN DRIP 25,000 UNIT/500 ML IV.SOLN 18 UNIT IV (17:08)
[2022-01-12] VITALS (9 sets, daily range): BP systolic 161–166; BP diastolic 61–88; PULSE 52–60; RESP 16–18; TEMP 36.4–36.8; O2SAT 93–99
[2022-01-12 05:58] LABS: Hematocrit 34.8 % (41-53); Hemoglobin 11.7 g/dL (13.5-17.5)
[2022-01-12 06:05] LABS: PTT Partial Thromboplastin Tim 57 SECONDS (26.4-36.2)
[2022-01-12] MEDS: HEPARIN 5,000 UNIT/ML VIAL 2000 UNIT IV (06:58)
--- NOTE | 2022-01-12 06:58 | P.PN_ITS ---
Subjective Subjective Date Patient Seen: 01/12/22 Time Patient Seen: 06:58 Interval history: Patient asymptomatic. ECHO showed right heart strain, normal EF, no Wall Motion changes, resting perfusion scan performed. Exam Vital Signs (past 8 hours): - 01/12/22 04:00 Temperature 97.9 F Pulse Rate 57 L Respiratory Rate 16 Blood Pressure 165/88 H Pulse Oximetry 93 Oxygen Delivery Method Room Air Oxygen Flow Rate 0 Objective Labs Result Diagrams: 01/12/22 05:20 01/11/22 05:05 Labs: Laboratory Results - last 24 hr 01/11/22 01/12/22 01/12/22 12:17 05:20 05:20 Hgb 11.7 L Hct 34.8 L APTT 85 H* D 57 H D PFSH Medical History Chronic back pain Chronic migraine Chronic renal failure, stage 4 (severe) DVT (deep venous thrombosis) (~12/2020) Mild cognitive impairment Parkinsons disease (~12/2020) Surgical History S/P spinal surgery (~05/2021) Family History Mother No problems noted. Social History household members: spouse Smoking Status: Former smoker Assessment & Plan Assessment & Plan narrative: 1. Respiratory-patient without symptoms at this time. Again his presenting symptoms was a sense of inability to catch his breath with activity. Initially I was somewhat dubious about the possibility of a pulmonary embolism but his echo would be consistent with that. Because of the nucleotide used for myocard ial perfusion imaging will be unable to obtain V/Q scan for several days. I am planning to continue him on anticoagulation for possible PE until that scan can be obtained. In addition his initial ultrasound did show superficial clot with perhaps extension into the popliteal. I am going to repeat an ultrasound of that right leg today to look for further extension of clot which would be if further indication for longer term anticoagulation. 2. Cardiac been awaiting results of stress portion of patient's myocardial perfusion imaging. I still believe this is more likely source of symptoms based on clinical features however again echo with right heart strain suggest perhaps pulmonary embolism is the correct diagnosis. He has had 48 hours of unfractionated heparin I am going to discontinue this given lack of symptoms and trending downward of his troponin when last checked. I am going to start him on Eliquis as noted below, mostly for a possible pulmonary embolism and perhaps early DVT 3. Renal-patient's renal function appears to be a baseline. Again as noted further research suggest that Eliquis can be safely used in patients even on dialysis, although many suggest a lower dose which has been ordered Note: Greater than 20 minutes total time was spent on day of service, evaluating the patient on the floor, including examining the patient, discussing clinical course with clinical and nursing staff, reviewing clinical course in the computer, preparing documentation and writing orders for continued management of care, discussing status with family as appropriate, reviewing plans for the next 24 hours with both patient/family and nursing staff as appropriate.
[2022-01-12] MEDS: METOPROLOL IR 25 MG TABLET PO ×2 (09:31→20:35)
[2022-01-12] MEDS: AMLODIPINE 5 MG TABLET PO (09:33)
[2022-01-12] MEDS: APIXABAN 5 MG TABLET 2.5 MG PO ×2 (09:33→20:35)
--- NOTE | 2022-01-12 11:40 | PM.TREADMILL ---
Cardiac Stress Test Report Referral & Results Date Patient Seen: 01/12/22 Time Patient Seen: 11:41 Requesting provider: Pasha Thompson Indication: Dyspnea Rest ECG: Sinus bradycardia with T wave inversion in V1-V3 Procedure Note: After Lexiscan injection had minimal dyspnea and chest pressure No significant ST changes after Lexiscan injection Rare PVC Impression: Equivocal Lexican stress test Nuclear images pending Please note: Actual ECG tracings can be found in the PACS system.
--- NOTE | 2022-01-12 12:08 | PC.NURSE ---
Addendum entered by Janneth Teran R.N. 01/12/22 17:09: Pt sitting in chair. Denies discomfort. Tele showing NSR per ICU staff. Call light w/in reach, pt calls appropriately for needs. Continue w/plan of care. Original Note: Pt alert w/ some confusion. Denies discomfort. Lungs clear, SpO2 96% RA Tele showed SB per ICU staff, orders to D/C tele received. Having stress test this morning. SL RAC & RFA both intact/patent Call light w/in reach, bed alarm on for pt safety.
[2022-01-13 03:39] VITALS: BP 145/61; PULSE 57; RESP 16; TEMP 36.2; O2SAT 96
--- NOTE | 2022-01-13 08:27 | PM.DS.1 ---
History of Present Illness History of Present Illness Date Patient Seen: 01/13/22 Time Patient Seen: 08:27 Chief complaint: Trouble breathing Narrative: 81-year-old male who presented to the emergency department with symptoms of episodic shortness of breath. Patient reports symptoms began about 5 days prior to admission. Was out walking his dog the first time. He gets this episodic inability to catch his breath that lasts generally very briefly. The morning of admission however much more prolonged that did not resolve until sometime when he was in the ER. He apparently who is reporting increasing symptoms over the last several days. Denies having any chest pain. Denies any syncope near syncope lightheadedness or dizziness. Evaluation in the emergency department revealed a superficial femoral clot with some extension into the popliteal and a borderline elevated troponin as well as his known chronic renal failure which appears to be stable. Patient also with nonspecific ST-T segment changes on his ECG, with no prior tracing available for comparison After discussion with Cardiology was elected to admit him for trending of his troponins anticoagulation with unfractionated heparin given his renal dysfunction a consideration of V/Q scanning for pulmonary embolism as CT scanning is contraindicated with his renal dysfunction. Discharge Providers Provider Date of admission: 01/10/22 10:57 Discharge Date: 01/13/22 Primary care physician: Pasha Munoz MD Discharge provider: Pasha Munoz MD Summary Hospital Course Discharge Diagnosis: 1. Elevated troponin due to demand ischemia and chronic renal failure 2. Probable pulmonary embolism 3. DVT right lower extremity 4. Chronic renal failure stage 4 5. Parkinson's disease 6. Essential hypertension Hospital Course: Patient was admitted to the hospital because of his episodic dyspnea. Troponin was borderline elevated unclear whether due to myocardial ischemia or myocardial infarction or in some part due to his chronic renal failure. Troponin trended up initially then trended down. Patient had no symptoms of his dyspnea during his hospitalization He was initially felt that a cardiac source of symptoms was more likely given the elevated troponin and so a cardiac workup was initiated. He underwent myocardial perfusion imaging, which in the and did not show any evidence of any myocardial ischemia thus suggesting no evidence of any significant obstruction of blood flow or coronary artery disease Patient has echo suggested right heart volume overload/strain consistent with probable pulmonary embolism. Patient did not have CT scan of the thorax with angiography upon admission because of his chronic renal failure and the need for IV contrast for that study. Because of the myocardial perfusion imaging done with the radioactive nucleotide we are unable to perform a V/Q scan. However given findings on echo and the borderline evidence of a DVT (at least into the popliteal vein) was felt as though pulmonary embolism is the most likely etiology for his presenting symptoms. He was initially started on unfractionated heparin for potential cardiac etiology. This was maintained until it became clear this was more likely a pulmonary embolism. He was then switched to oral Eliquis at slightly reduced dose which is recommended by most experts in the setting of a GFR such as his (20-22). Again patient remained asymptomatic Patient was also somewhat hypertensive during his hospitalization was started initially on beta-jose e therapy under the assumption he had some evidence of coronary disease. Amlodipine was added to his regimen. He will be discharged on both these medications His parkinsonism was not particularly active during this hospitalization. Again at baseline does not require any medication for his parkinsonism and there seems to be no difference from baseline currently Patient also with mild cognitive dysfunction appears to be a baseline with that as well Status at Discharge Cognitive/behavioral status at discharge: at baseline, oriented Functional status at discharge: independent ambulation Overall status at discharge: patient is back to baseline Exam Vital Signs (past 8 hours): - 01/13/22 03:39 Temperature 97.1 F L Pulse Rate 57 L Respiratory Rate 16 Blood Pressure 145/61 H Pulse Oximetry 96 Oxygen Delivery Method Room Air Oxygen Flow Rate 0 Objective Labs Result Diagrams: 01/12/22 05:20 01/11/22 05:05 [facility] Medical History Chronic back pain Chronic migraine Chronic renal failure, stage 4 (severe) DVT (deep venous thrombosis) (~12/2020) Mild cognitive impairment Parkinsons disease (~12/2020) Surgical History S/P spinal surgery (~05/2021) Family History Mother No problems noted. Social History household members: spouse Smoking Status: Former smoker Discharge Plan Discharge Plan Patient Disposition: Home Discharge orders & Medications Prescriptions: New amlodipine [Norvasc] 5 mg Tablet 5 mg PO DAILY Qty: 90 3RF Eliquis 5 mg Tablet 2.5 mg PO BID Qty: 60 3RF metoprolol tartrate 25 mg Tablet 25 mg PO BID Qty: 60 3RF Continued acetaminophen [Tylenol Extra Strength] 500 mg tablet See Rx Instructions PO DAILY PRN (Reason: fever or pain) 0RF Rx Instructions: 1.5 tab PO daily PRN; Follow up/Referrals: Pasha Munoz MD [Primary Care Provider] - 01/18/22 3:00 pm (appt:01/18 @ 3:[address] munoz please check in 15 min prior to your scheduled appointment ) Discharge Health Status Multidrug resistant organism: No MDRO Diet/Activity/Treatments Diet: Low-protein/Renal Discharge Data Primary Care Provider: Pasha Munoz
[2022-01-13] MEDS: APIXABAN 5 MG TABLET 2.5 MG PO (09:07)
[2022-01-13] MEDS: AMLODIPINE 5 MG TABLET PO (09:07)
[2022-01-13] MEDS: METOPROLOL IR 25 MG TABLET PO (09:07)
[2022-01-13] MEDS: SODIUM CHLORIDE 0.9% FLUSH 10 ML IV (09:08)
[2022-01-13 09:43] VITALS: O2SAT 97
--- NOTE | 2022-01-13 10:11 | PC.NURSE ---
Pt condition remains essentially unchanged, Discharge orders received Both SL discontinued intact. D/C instructions given w/understanding. Pt escorted by staff via W/C to waiting vehicle. D/C in stable condition.
== END 2022-01-13 10:00 | disposition home or self-care (01) | DRG 175 ==
LOC: ED 10:55 → AC 10:58
PROVIDERS: Family Medicine; Admitting Provider Internal Medicine; Emergency Provider Emergency Medicine; PCP Internal Medicine; Referring Provider Emergency Medicine; Visit Provider Internal Medicine
DX: I26.09 Other pulmonary embolism with acute cor pulmonale (principal); N18.4 Chronic kidney disease, stage 4 (severe); I24.8 Other forms of acute ischemic heart disease; I82.431 Acute embolism and thrombosis of right popliteal vein; G20 Parkinson's disease; I12.9 Hypertensive chronic kidney disease with stage 1 through stage 4 chronic kidney disease, or unspecified chronic kidney disease; Z87.891 Personal history of nicotine dependence; Z20.822 Contact with and (suspected) exposure to COVID-19
CPT/HCPCS: 36415; 71045; 78452; 80048; 80053; 82550; 82553; 83605; 83735; 83880; 84484; 85014; 85018; 85025; 85730; 87635; 93005; 93010; 93017; 93306; 93970; 94760; 96365; 96366; 96376; 99232; 99233; 99238; 99284; 99291; C9803; A9502; J1644; J2785

== ENCOUNTER → 2022-12-20 10:12 | Outpatient (CLI) | payer MEDICARE, OTHER, SELFPAY ==
[2022-01-10 12:39] VITALS: BMI 20.5
[2022-12-20 10:51] LABS: Add Manual Diff / Slide Review NO; Basophils Absolute Auto 0 /uL (0-100); Basophils Percent Auto 0.7 % (0-2); Eosinophils Absolute Auto 100 /uL (0-450); Eosinophils Percent Auto 2.4 % (2-4); Hematocrit 38.9 % (41-53); Hemoglobin 12.9 g/dL (13.5-17.5); Lymphocytes Absolute Auto 1400 /uL (1100-4500); Lymphocytes Percent Auto 29.7 % (25-40); Mean Corpuscular HGB Conc 33.3 % (30-36); Mean Corpuscular Hemoglobin 30.8 PG (26-34); Mean Corpuscular Volume 92.6 fL (80-100); Monocytes Absolute Auto 500 /uL (0-900); Monocytes Percent Auto 10.4 % (3-14); Neutrophils Absolute Auto 2800 /uL (1500-7000); Neutrophils Percent Auto 56.8 % (50-75); Platelet Count 186 X10^3/uL (150-400); White Blood Cell Count 4.9 X10^3/uL (4.5-11.0)
[2022-12-20 11:10] LABS: Alanine Aminotransferase 18 IU/L (<50); Albumin 4.1 g/dL (3.5-5.0); Albumin Globulin Ratio 1.4 (1.0-2.8); Alkaline Phosphatase 52 U/L (38-126); Aspartate Aminotransferase 22 IU/L (17-59); BUN Creatinine Ratio 12.5 (6-22); Bilirubin Total 0.4 mg/dL (0.2-1.3); Blood Urea Nitrogen 41 mg/dL (9-20); Calcium 10.6 mg/dL (8.4-10.2); Carbon Dioxide 25 mmol/L (22-32); Chloride 104 mmol/L (98-107); Estimated Glomerular Filt Rate 18 mL/min (>60); Glucose 89 mg/dL (80-110); HEMOLYSIS < 15 (0-50); Potassium 4.9 mmol/L (3.4-5.1); Sodium 135 mmol/L (137-145); Total Protein 7.1 g/dL (6.3-8.2)
== END ==
PROVIDERS: PCP Internal Medicine; Referring Provider Internal Medicine; Visit Provider Internal Medicine
DX: I10 Essential (primary) hypertension (principal); G20 Parkinson's disease; Z79.01 Long term (current) use of anticoagulants; N18.4 Chronic kidney disease, stage 4 (severe)
CPT/HCPCS: 36415; 80053; 85025

== ENCOUNTER → 2023-06-20 09:51 | Outpatient (CLI) | payer MEDICARE, OTHER, SELFPAY ==
[2023-06-20 09:44] VITALS: BMI 20.5
[2023-06-20 12:06] LABS: BUN Creatinine Ratio 14.1 (6-22); Blood Urea Nitrogen 43 mg/dL (9-20); Calcium 9.5 mg/dL (8.4-10.2); Carbon Dioxide 24 mmol/L (22-32); Chloride 106 mmol/L (98-107); Estimated Glomerular Filt Rate 20 mL/min (>60); Glucose 100 mg/dL (80-110); HEMOLYSIS < 15 (0-50); Potassium 4.9 mmol/L (3.4-5.1); Sodium 137 mmol/L (137-145)
== END ==
PROVIDERS: PCP Internal Medicine; Referring Provider Internal Medicine; Visit Provider Internal Medicine
DX: I10 Essential (primary) hypertension (principal); N18.4 Chronic kidney disease, stage 4 (severe)
CPT/HCPCS: 36415; 80048

== ENCOUNTER → 2024-05-03 16:07 | Outpatient (CLI) | payer MEDICARE, OTHER, SELFPAY ==
[2024-01-25 11:35] VITALS: BMI 20.5
[2024-05-03 17:31] LABS: Add Manual Diff / Slide Review NO; Basophils Absolute Auto 0 /uL (0-100); Basophils Percent Auto 0.9 % (0-2); Eosinophils Absolute Auto 100 /uL (0-450); Eosinophils Percent Auto 2.5 % (2-4); Hematocrit 38.5 % (41-53); Lymphocytes Absolute Auto 1700 /uL (1100-4500); Lymphocytes Percent Auto 36.8 % (25-40); Mean Corpuscular HGB Conc 33.6 % (30-36); Mean Corpuscular Hemoglobin 31.2 PG (26-34); Monocytes Absolute Auto 400 /uL (0-900); Monocytes Percent Auto 8.6 % (3-14); Neutrophils Absolute Auto 2400 /uL (1500-7000); Neutrophils Percent Auto 51.2 % (50-75); Platelet Count 214 X10^3/uL (150-400); Red Blood Cell Count 4.15 X10^6/uL (4.5-5.9); Red Cell Distribution Width 13.9 % (11.6-14.8); White Blood Cell Count 4.7 X10^3/uL (4.5-11.0)
[2024-05-03 17:42] LABS: Alanine Aminotransferase 18 IU/L (<50); Albumin 4.5 g/dL (3.5-5.0); Albumin Globulin Ratio 1.4 (1.0-2.8); Alkaline Phosphatase 63 U/L (38-126); Aspartate Aminotransferase 26 IU/L (17-59); BUN Creatinine Ratio 12.7 (6-22); Bilirubin Total 0.5 mg/dL (0.2-1.3); Blood Urea Nitrogen 44 mg/dL (9-20); Calcium 9.5 mg/dL (8.4-10.2); Carbon Dioxide 20 mmol/L (22-32); Chloride 111 mmol/L (98-107); Estimated Glomerular Filt Rate 17 mL/min (>60); Globulin 3.2 g/dL (1.7-4.1); Glucose 84 mg/dL (80-110); HEMOLYSIS < 15 (0-50); Potassium 4.8 mmol/L (3.4-5.1); Sodium 139 mmol/L (137-145); Total Protein 7.7 g/dL (6.3-8.2)
== END ==
PROVIDERS: Family Provider Internal Medicine; PCP Internal Medicine; Referring Provider Internal Medicine; Visit Provider Internal Medicine
DX: I12.9 Hypertensive chronic kidney disease with stage 1 through stage 4 chronic kidney disease, or unspecified chronic kidney disease (principal); N18.4 Chronic kidney disease, stage 4 (severe); D64.9 Anemia, unspecified; Z79.01 Long term (current) use of anticoagulants
CPT/HCPCS: 80053; 85025

== ENCOUNTER → 2024-06-03 13:01 | Outpatient (CLI) | payer MEDICARE, OTHER, SELFPAY ==
[2024-05-06 13:59] VITALS: BMI 20.5
[2024-06-03 13:55] LABS: BUN Creatinine Ratio 13.9 (6-22); Blood Urea Nitrogen 41 mg/dL (9-20); Calcium 9.6 mg/dL (8.4-10.2); Carbon Dioxide 21 mmol/L (22-32); Chloride 111 mmol/L (98-107); Estimated Glomerular Filt Rate 20 mL/min (>60); Glucose 84 mg/dL (80-110); HEMOLYSIS < 15 (0-50); Potassium 5.2 mmol/L (3.4-5.1); Sodium 140 mmol/L (137-145)
== END ==
PROVIDERS: Family Provider Internal Medicine; PCP Internal Medicine; Referring Provider Internal Medicine Nephrology; Visit Provider Internal Medicine Nephrology
DX: N05.9 Unspecified nephritic syndrome with unspecified morphologic changes (principal); N25.81 Secondary hyperparathyroidism of renal origin; E83.30 Disorder of phosphorus metabolism, unspecified; N18.4 Chronic kidney disease, stage 4 (severe)
CPT/HCPCS: 36415; 80048

== ENCOUNTER → 2024-06-14 16:03 | Outpatient (CLI) | payer MEDICARE, OTHER, SELFPAY ==
[2024-05-06 13:59] VITALS: BMI 20.5
--- NOTE | 2024-06-14 16:04 | DI.US.S_ITS ---
PROCEDURE: US RENAL COMPLETE INDICATIONS: CKD STAGE 4, URINE RETENTION TECHNIQUE: Real-time scanning was performed of the kidneys and bladder, with image documentation. COMPARISON: None. FINDINGS: Suboptimal evaluation secondary to bowel gas/body habitus. Kidneys: Kidneys are small in size. Right kidney measures 10.3 cm long; left kidney measures 9.5 cm long. Right renal cortical thickness was not measured due to suboptimal visualization; left renal cortical thickness is 0.9 cm. Renal cortical echotexture appears echogenic. No visualized hydronephrosis or nephrolithiasis. Bilateral anechoic simple cysts measuring up to 3.5 cm on the right and 5.3 cm on the left. No suspicious solid mass lesions. Bladder: Pre-void bladder volume is 85 mL. Post-void residual is 73 mL. Pre-void images demonstrate no intraluminal masses or stones. On pre-void images, no ureteral jets are noted with color Doppler interrogation. (Of note, ureteral jets may not be detectable in up to 25% of cases due to insufficient differences in specific gravity between ureteral and bladder urine). Miscellaneous: No free pelvic fluid. IMPRESSION: Suboptimal evaluation secondary to bowel gas/body habitus. 1. Within these limitations, no hydronephrosis or nephrolithiasis bilaterally. 2. Bilateral kidneys are small in size and echogenic compatible with known history of medical renal disease. 3. Postvoid residual is 73 mL. Dictated by: Jay Jay Grier M.D. on 06/14/2024 at 19:34 Approved by: Jay Jay Grier M.D. on 06/14/2024 at 19:36
== END ==
LOC: US 16:03
PROVIDERS: Family Provider Internal Medicine; PCP Internal Medicine; Referring Provider Internal Medicine Nephrology; Visit Provider Internal Medicine Nephrology
DX: N28.1 Cyst of kidney, acquired (principal); N18.4 Chronic kidney disease, stage 4 (severe); R33.9 Retention of urine, unspecified
CPT/HCPCS: 76770

== ENCOUNTER → 2024-06-28 14:47 | Outpatient (CLI) | payer MEDICARE, OTHER, SELFPAY ==
[2024-05-06 13:59] VITALS: BMI 20.5
--- NOTE | 2024-06-28 14:48 | DI.RAD.S_ITS ---
PROCEDURE: XR LUMBAR SPINE 2-3V INDICATIONS: chronic back pain TECHNIQUE: 3 views of the lumbar spine were acquired. COMPARISON: None. FINDINGS: Bones: 5 [id number] vertebrae are present. There is leftward scoliotic curvature with apex at L3. L4-5 fusion with intervertebral spacer is present. Hardware is intact without hardware fracture or periprosthetic lucency to suggest loosening. Alignment is stable. Multilevel degenerative disc space narrowing as well as foraminal narrowing are present. Foraminal narrowing is most severe at L3-4 through L5-S1. No vertebral body compression fractures. No suspicious bony lesions. Soft tissues: Overlying bowel gas pattern is normal. No suspicious soft tissue calcifications. IMPRESSION: Scoliotic curvature and degenerative changes as above. Dictated by: Vicki Landa M.D. on 07/01/2024 at 13:12 Approved by: Vicki Landa M.D. on 07/01/2024 at 13:12
== END ==
LOC: RAD 14:48
PROVIDERS: Family Provider Internal Medicine; PCP Internal Medicine; Referring Provider Internal Medicine; Visit Provider Internal Medicine
DX: M48.061 Spinal stenosis, lumbar region without neurogenic claudication (principal); M48.07 Spinal stenosis, lumbosacral region; M41.9 Scoliosis, unspecified; M54.9 Dorsalgia, unspecified; G89.29 Other chronic pain; Z98.1 Arthrodesis status
CPT/HCPCS: 72100

== ENCOUNTER 2024-07-19 13:45 | Outpatient (RCR) | payer MEDICARE, OTHER, SELFPAY ==
[2024-05-06 13:59] VITALS: BMI 20.5
--- NOTE | 2024-05-07 15:30 | PT.OIE ---
Current Diagnoses Parkinson's disease with dyskinesia, with fluctuations (05/07/24) Stiffness of right knee, not elsewhere classified (05/07/24) Dorsalgia, unspecified (05/07/24) Myalgia, other site (05/07/24) Other lack of coordination (05/07/24) Weakness (05/07/24) Past Medical History (Last Updated 01/25/24 @ 11:27 by Pasha Thompson MD) Chronic back pain Chronic migraine Chronic renal failure, stage 4 (severe) Current use of care home anticoagulation DVT (deep venous thrombosis) (~12/2020) DVT of leg (deep venous thrombosis) (~2021) Erectile dysfunction Hypertension, essential Macular degeneration Mild cognitive impairment Parkinsons disease (~12/2020) Pulmonary embolism Past Surgical History (Last Reviewed 01/10/22 @ 11:05 by Pasha Thompson MD) S/P spinal surgery (~05/2021) Visit Care Team Role Provider Type Pasha Thompson MD Attending Provider Physician Family Provider Primary Care Provider Referring Provider Specialty: Internal Medicine Address: [address] [place] [address], [address], [facility] Email: [email or web address] Physical Therapy Initial Evaluation PT-OP-A Visit Information Start: 05/07/24 11:15 Freq: Status: Active Protocol: Document 05/07/24 11:17 NM (Rec: 05/07/24 12:21 NM [id number]) Out-Patient Physical Therapy Visit Information Visit Information Visit Type Initial Evaluation Visit Note KX after 19 visits Visit Start Time 11:17 Visit Stop Time 12:07 Visit Number 1 Evaluation Information Evaluation Date 05/07/24 Precautions Precautions PD, vitals, fall risk, memory, macular degeneration ( difficulty with central vision ) PT-OP-B Current Condition Start: 05/07/24 11:15 Freq: Status: Active Protocol: Document 05/07/24 11:17 NM (Rec: 05/07/24 12:21 NM [id number]) Current Condition History of Current Condition Onset Date 2020, chronic and ongoing Current Complaints pain, mobility, balance History of Current Condition Pt has PD, dx in 2020. Pt has difficulty with memory, tremors, bradykinesia; no medication for PD. Pt has hx of spinal surgery (2020), blood clots (on medication for this and blood pressure), macular degeneration, chronic kidney disease. Pt presents with B buttock pain, starting in 2019. He had a laminectomy, fusion of lower lumbar spine. After surgery, recovery was long and slow. Pt went from not being able to stand up straight to being able to stand up straight. This pain was present prior to surgery, but still hasn't gone away. The pain initially began on R side, but shifts back and forth. Pt gets leg cramps, varsha at night. Pt has a cane, prn uses walking sticks. Prior Treatments and Tests Previous PT following spine surgery Treatment Goals Patient/Caregiver Goals make pain go away PT-OP-C Subjective Start: 05/07/24 11:15 Freq: Status: Active Protocol: Document 05/07/24 11:17 NM (Rec: 05/07/24 12:21 NM [id number]) OP-PT Subjective Patient Comments Patient Comments Pt agrees to participate in evaluation today Patient Questionnaires Oswestry Low Back Index Oswestry Score 16/50 OP-PT Pain Assessment Location back Pain Location Details R>L, away from spine Scale Used Numeric (0 - 10) Description Aching,Chronic Pain Aggravating Factors Bending,Lifting Other Pain Aggravating Factors getting out of bed Pain Alleviating Factors Sitting,Rest buttock Intensity 5 Scale Used Numeric (0 - 10) Description Aching,Chronic,Dull Frequency Frequent Pain Duration 1-2 hrs Pain Aggravating Factors Sitting Other Pain Aggravating Factors walk too far >1 mile, long plane Pain Alleviating Factors Exercise Other Pain Alleviating Factors stretching, exercises, squatting PT-OP-E Functional Tests Start: 05/07/24 11:15 Freq: Status: Active Protocol: Document 05/07/24 11:17 NM (Rec: 05/07/24 12:21 NM [id number]) Functional Tests Five Times Sit to Stand Test Score 16.6 secs Comments w/o hand support Other Forward Trunk Flexion Test Name of Test 75% of ROM Comment reports minimal pain with bending PT-OP-F Manual Assessment Start: 05/07/24 11:15 Freq: Status: Active Protocol: Document 05/07/24 11:17 NM (Rec: 05/07/24 12:21 NM [id number]) Manual Assessments Soft Tissue Assessment Soft Tissue Mobility Assessment Decreased B hamstring length, tightness in hip flexors as well. Lacking R knee extension Joint Mobility Assessment Joint Mobility Assessment Hypomobility of lumbar spine and hips. Maintains B hip and knee flexion in stance, gait PT-OP-G Mobility & Gait Start: 05/07/24 11:15 Freq: Status: Active Protocol: Document 05/07/24 11:17 NM (Rec: 05/07/24 12:21 NM [id number]) OP Mobility Evaluation Bed Mobility Supine to and from Sit Low back pain reproduced with rotation during transition; close SBA OP Gait Assessment Gait Distance (Feet) 150 Factors Limiting Gait Function Factors Limiting Gait Function Decreased Strength,Difficulty Following Directions,Limited Range of Motion,Pain Comments Gait Comments Slow gait speed with forward flexed trunk, limited step length and foot clearance PT-OP-J Posture/Palpation/Skin Start: 05/07/24 11:15 Freq: Status: Active Protocol: Document 05/07/24 11:17 NM (Rec: 05/07/24 12:21 NM [id number]) Posture Evaluation Comments Posture Comments Demonstrates forward flexed trunk posture with forward head, rounded shoulders, and slight kyphosis. Demos anterior pelvic tilt Palpation Assessment Location lumbar spine Palpation Details Tenderness post sit to stand along iliac crests bilaterally , R>L, and paraspinals. No tenderness along midline buttock Palpation Details Tenderness along piriformis, SIJ, hamstrings PT-OP-K Range of Motion Start: 05/07/24 11:15 Freq: Status: Active Protocol: Document 05/07/24 11:17 NM (Rec: 05/07/24 12:21 NM [id number]) Lumbar Spine Range of Motion Lumbar Spine Active Percentage Flexion 75 Extension 50 Lateral Flexion Left 50 Lateral Flexion Right 50 Hip Goniometric Range of Motion Hip Right Flexion w/Knee Flexed 105 Internal Rotation 25 External Rotation 20 Left Flexion w/Knee Flexed 90 Internal Rotation 30 External Rotation 25 Comments IR Knee Goniometric Range of Motion Knee Right Flexion Active (degrees) 130 Extension Active (degrees) 5 Comments HS 120 deg Left Flexion Active (degrees) 130 Extension Active (degrees) 0 Comments HS 130 deg PT-OP-L Special Tests Start: 05/07/24 11:15 Freq: Status: Active Protocol: Document 05/07/24 11:17 NM (Rec: 05/07/24 12:21 NM [id number]) Special Tests Lumbar Spine Special Tests Slump Test Results - Connelly/Quadrant Test Results - PT-OP-M Strength Start: 05/07/24 11:15 Freq: Status: Active Protocol: Document 05/07/24 11:17 NM (Rec: 05/07/24 12:21 NM [id number]) Trunk Strength Trunk Manual Muscle Testing Flexion 4 Good Extension 4 Good Rotation Left 4 Good Rotation Right 4 Good Lateral Flexion Left 4 Good Lateral Flexion Right 4 Good Hip Strength Hip Manual Muscle Testing Right Flexion (L2) 4- Good- Extension (S1) 4- Good- Abduction 4- Good- Adduction 4- Good- External Rotation 4- Good- Internal Rotation 4- Good- Left Flexion (L2) 4- Good- Extension (S1) 4- Good- Abduction 4- Good- Adduction 4- Good- External Rotation 4- Good- Internal Rotation 4- Good- Knee Strength Knee Manual Muscle Testing Right Flexion (S2) 4- Good- Extension (L3) 4- Good- Left Flexion (S2) 4- Good- Extension (L3) 4- Good- Ankle/Foot Strength Ankle and Foot Manual Muscle Testing Right Dorsiflexion (L4) 4 Good Plantarflexion (S1) 4 Good Comments Measured in sitting Left Dorsiflexion (L4) 4 Good Plantarflexion (S1) 4 Good Comments Measured in sitting PT-OP-Q Treatments Start: 05/07/24 11:15 Freq: Status: Active Protocol: Document 05/07/24 11:17 NM (Rec: 05/07/24 12:21 NM [id number]) Therapeutic Exercises Sitting Exercises hamstring stretch Sitting Exercise Name passive stretch Side bilateral Equipment Used slight forward lean Reps/Minutes 3 minutes Self-Care/Home Management Treatment Education Patient Education Home Exercise Program,Pain Management Other Education Educated on incorporating stretching and more frequent standing and ambulation breaks during the day vs sitting for long periods. Recommended use of trek poles during daily ambulation for additional stability. PT-OP-T Assessment and Plan Start: 05/07/24 11:15 Freq: Status: Active Protocol: Document 05/07/24 11:17 NM (Rec: 05/07/24 12:21 NM [id number]) Physical Therapy Assessment Rehab Potential Rehabilitation Potential Good Evaluation Complexity Number of Personal Factors/Comorbidities 3 or More Number of Body Systems Impaired 4 or More Clinical Presentation at Evaluation Stable Impairments Impairments Activity Tolerance,Balance, Functional Activities, Functional Mobility,Gait, Integument,Pain,Posture,ROM, Sensation,Soft Tissue Mobility ,Strength,Transfers Other Concerns Barriers to Rehabilitation Pt has difficulty with memory, understanding and executing instructions. Due to Parkinson 's disease and regular sedentary lifestyle, pt already has rigidity and limited hamstring length with possible contractures. His buttock/back pain is chronic, occuring prior to his back surgery and has not improved since his surgery several years ago. PMH includes blood clots, chronic kidney disease, blood pressure changes, headaches, macular degeneration, previous spinal surgery. Currently getting concurrent care for macular degeneration. Goals Four Impairment gait Impairment maximal distance 1 mile w/o AD Short Term Goal (STG) If appropriate, pt will use LRAD during daily ambulation in order to demonstrate improved stability, symptom management, and increase confidence with ambulation while on hikes STG Duration 6 weeks [employer]ilities And Grounds Director Goal (LTG) Pt will report that he is able to ambulate any distance during his daily ambulation with his without pain at least 4/7 days during the week LTG Duration 10 weeks Three Impairment hamstring length Impairment R hamstring length 120 deg, L hamstring length 130 deg [facility] Goal (LTG) Pt will improve B hamstring length to at least 140 deg bilaterally in order to demonstrate improved knee extension for TKE during gait and to improve BLE flexibility to offload pressure on his back LTG Duration 10 weeks Two Impairment strength Impairment 5x STS 16.6 sec Short Term Goal (STG) Pt will be able to perform at least 5/10 reps of sit to stands without UE assistance and without increase in baseline pain in order to demonstrate improved BLE strength for transfers and activity tolerance STG Duration 5 weeks [facility] Goal (LTG) Pt will be able to perform 5x STS test in less than 14.8 seconds (age-related norm) without UE assistance and without increase in baseline pain in order to demonstrate improved BLE strength for transfers and activity tolerance LTG Duration 10 weeks One Impairment oswestry Impairment Oswestry 16/50 [facility] Goal (LTG) Pt will report Oswestry <16/50 in order to demonstrate improved symptom management, activity tolerance, and QOL LTG Duration 10 weeks Assessment Summary Assessment Pt is an 83 y.o. male presenting with B buttock and back pain. Pain is worse with long periods of sitting, ambulation, bending, and reaching/leaning forward. Pt has impairments in ROM, strength, balance, gait, flexibility, pain management, and activity tolerance. Pt's symptoms are likely related to decreased flexibility, related to postural changes and symptoms of Parkinson's disease. He also has hx of lumbar spine surgery, possible laminectomy and hardware placement, which also limits his trunk ROM. Pt is able to stabilize his trunk and BLE against resistance without pain. Pt has limitations in global BLE flexibility, including significant limitations in B hamstring length. His R hamstring is more restricted and inhibits his ability to get terminal knee extension. However, he does have tenderness to palpation along his R SIJ. Pt also reports back pain after performing the 5 time sit to stand test, which is slower than the age-related norms; pt also uses several compensations to assist to standing. PT educated pt and his on exam findings and plan of care. PT also issue initial HEP with seated hamstring stretch and education about frequent standing breaks and brief ambulation during day to decrease sedentary lifestyle. He would benefit from skilled PT to improve BLE flexibility and strength, in addition to body mechanics and safety training in order to improve symptom management, improve activity tolerance, and promote independence to decrease caregiver reliance. Physical Therapy Plan Frequency and Duration Frequency of Treatment 1-2x/wk Duration of treatment (weeks) 10 Plan of Care Start Date 05/07/24 Plan of Care End Date 07/19/24 Therapeutic Interventions Therapeutic Interventions Balance Training,Coordination Training,Gait Training,Home Exercise Program,Joint Mobilizations,Manual Therapy, Neuromuscular Re-education, Orthotic/Prosthetic Management ,Patient/Caregiver Education, Self-Care/Home Management, Sensory Integration,Soft Tissue Mobilization,Taping, Therapeutic Activities, Therapeutic Exercises Modalities Cold Pack/Ice Massage,Electric Stimulation,Hot Packs, Ultrasound Next Visit Focus/Plan Next Note Type Treatment Note Next Visit Plan Stretching: figure 4, hamstring in supine, hip flexor stretching. Hip hinge with dowel for lengthening, supine knee flex/ext, TKE, STS ; core bracing check orthostatics plan of care: improve hip muscle flexibility, core and hip strength
--- NOTE | 2024-05-09 15:30 | PT.OTN ---
Current Diagnoses Parkinson's disease with dyskinesia, with fluctuations (05/09/24) Stiffness of right knee, not elsewhere classified (05/09/24) Dorsalgia, unspecified (05/09/24) Myalgia, other site (05/09/24) Other lack of coordination (05/09/24) Weakness (05/09/24) Physical Therapy Treatment Note PT-OP-A Visit Information Start: 05/07/24 11:15 Freq: Status: Active Protocol: Document 05/09/24 13:00 NM (Rec: 05/09/24 13:49 NM [id number]) Out-Patient Physical Therapy Visit Information Visit Information Visit Type Treatment Note Visit Note KX after 19 visits Visit Start Time 13:06 Visit Stop Time 13:46 Visit Number 2 Evaluation Information Evaluation Date 05/07/24 Precautions Precautions PD, vitals, fall risk, memory, macular degeneration ( difficulty with central vision ) PT-OP-B Current Condition Start: 05/07/24 11:15 Freq: Status: Active Protocol: Document 05/07/24 11:17 NM (Rec: 05/07/24 12:21 NM [id number]) Current Condition History of Current Condition Onset Date 2020, chronic and ongoing Current Complaints pain, mobility, balance History of Current Condition Pt has PD, dx in 2020. Pt has difficulty with memory, tremors, bradykinesia; no medication for PD. Pt has hx of spinal surgery (2020), blood clots (on medication for this and blood pressure), macular degeneration, chronic kidney disease. Pt presents with B buttock pain, starting in 2019. He had a laminectomy, fusion of lower lumbar spine. After surgery, recovery was long and slow. Pt went from not being able to stand up straight to being able to stand up straight. This pain was present prior to surgery, but still hasn't gone away. The pain initially began on R side, but shifts back and forth. Pt gets leg cramps, varsha at night. Pt has a cane, prn uses walking sticks. Prior Treatments and Tests Previous PT following spine surgery Treatment Goals Patient/Caregiver Goals make pain go away PT-OP-C Subjective Start: 05/07/24 11:15 Freq: Status: Active Protocol: Document 05/09/24 13:00 NM (Rec: 05/09/24 13:49 NM [id number]) OP-PT Subjective Patient Comments Patient Comments Pt reports that less back pain today. states that he trialed exercises but hard for pt. She has been helping him stretch and providing gentle passive stretching assistance at the knees PT-OP-E Functional Tests Start: 05/07/24 11:15 Freq: Status: Active Protocol: Document 05/07/24 11:17 NM (Rec: 05/07/24 12:21 NM [id number]) Functional Tests Five Times Sit to Stand Test Score 16.6 secs Comments w/o hand support Other Forward Trunk Flexion Test Name of Test 75% of ROM Comment reports minimal pain with bending PT-OP-F Manual Assessment Start: 05/07/24 11:15 Freq: Status: Active Protocol: Document 05/07/24 11:17 NM (Rec: 05/07/24 12:21 NM [id number]) Manual Assessments Soft Tissue Assessment Soft Tissue Mobility Assessment Decreased B hamstring length, tightness in hip flexors as well. Lacking R knee extension Joint Mobility Assessment Joint Mobility Assessment Hypomobility of lumbar spine and hips. Maintains B hip and knee flexion in stance, gait PT-OP-G Mobility & Gait Start: 05/07/24 11:15 Freq: Status: Active Protocol: Document 05/07/24 11:17 NM (Rec: 05/07/24 12:21 NM [id number]) OP Mobility Evaluation Bed Mobility Supine to and from Sit Low back pain reproduced with rotation during transition; close SBA OP Gait Assessment Gait Distance (Feet) 150 Factors Limiting Gait Function Factors Limiting Gait Function Decreased Strength,Difficulty Following Directions,Limited Range of Motion,Pain Comments Gait Comments Slow gait speed with forward flexed trunk, limited step length and foot clearance PT-OP-J Posture/Palpation/Skin Start: 05/07/24 11:15 Freq: Status: Active Protocol: Document 05/07/24 11:17 NM (Rec: 05/07/24 12:21 NM [id number]) Posture Evaluation Comments Posture Comments Demonstrates forward flexed trunk posture with forward head, rounded shoulders, and slight kyphosis. Demos anterior pelvic tilt Palpation Assessment Location lumbar spine Palpation Details Tenderness post sit to stand along iliac crests bilaterally , R>L, and paraspinals. No tenderness along midline buttock Palpation Details Tenderness along piriformis, SIJ, hamstrings PT-OP-K Range of Motion Start: 05/07/24 11:15 Freq: Status: Active Protocol: Document 05/07/24 11:17 NM (Rec: 05/07/24 12:21 NM [id number]) Lumbar Spine Range of Motion Lumbar Spine Active Percentage Flexion 75 Extension 50 Lateral Flexion Left 50 Lateral Flexion Right 50 Hip Goniometric Range of Motion Hip Right Flexion w/Knee Flexed 105 Internal Rotation 25 External Rotation 20 Left Flexion w/Knee Flexed 90 Internal Rotation 30 External Rotation 25 Comments IR Knee Goniometric Range of Motion Knee Right Flexion Active (degrees) 130 Extension Active (degrees) 5 Comments HS 120 deg Left Flexion Active (degrees) 130 Extension Active (degrees) 0 Comments HS 130 deg PT-OP-L Special Tests Start: 05/07/24 11:15 Freq: Status: Active Protocol: Document 05/07/24 11:17 NM (Rec: 05/07/24 12:21 NM [id number]) Special Tests Lumbar Spine Special Tests Slump Test Results - Connelly/Quadrant Test Results - PT-OP-M Strength Start: 05/07/24 11:15 Freq: Status: Active Protocol: Document 05/07/24 11:17 NM (Rec: 05/07/24 12:21 NM [id number]) Trunk Strength Trunk Manual Muscle Testing Flexion 4 Good Extension 4 Good Rotation Left 4 Good Rotation Right 4 Good Lateral Flexion Left 4 Good Lateral Flexion Right 4 Good Hip Strength Hip Manual Muscle Testing Right Flexion (L2) 4- Good- Extension (S1) 4- Good- Abduction 4- Good- Adduction 4- Good- External Rotation 4- Good- Internal Rotation 4- Good- Left Flexion (L2) 4- Good- Extension (S1) 4- Good- Abduction 4- Good- Adduction 4- Good- External Rotation 4- Good- Internal Rotation 4- Good- Knee Strength Knee Manual Muscle Testing Right Flexion (S2) 4- Good- Extension (L3) 4- Good- Left Flexion (S2) 4- Good- Extension (L3) 4- Good- Ankle/Foot Strength Ankle and Foot Manual Muscle Testing Right Dorsiflexion (L4) 4 Good Plantarflexion (S1) 4 Good Comments Measured in sitting Left Dorsiflexion (L4) 4 Good Plantarflexion (S1) 4 Good Comments Measured in sitting PT-OP-Q Treatments Start: 05/07/24 11:15 Freq: Status: Active Protocol: Document 05/09/24 13:00 NM (Rec: 05/09/24 13:49 NM [id number]) Therapeutic Exercises Supine Exercises passive HS stretch Supine Exercise Name relax and let knees fall to table Side bilateral Reps/Minutes 2 minutes ea Comments following manual tx; improved ROM following tx LTR Supine Exercise Name hooklying Side bilateral Reps/Minutes 10 ea direction Comments cued small range for pain free ; edu remain gentle Sitting Exercises LAQ Sitting Exercise Name following stretching Side bilateral Equipment Used PT hand for target Reps/Minutes 2x10 Comments cued thigh on table; improved form w/ target, TKE post stretch, R limited hamstring stretch Sitting Exercise Name HEP review: passive stretch Side bilateral Equipment Used slight forward lean Reps/Minutes 1 minute Comments gentle fwd lean Therapeutic Activity Therapeutic Activity orthostatics Reps/Minutes 8 minutes Comments Pt supine during session, 155/ 93 mmHg R arm supine. Pt transitioned to standing, BP reading 133/87 mmHg. Pt asymptomatic, reporting no lightheadedness or dizziness, does not sway or buckle Educated briefly on exercises for safety prior to standing: january, ankle pumps, LAQ Manual Therapy Treatment Consent Patient gave verbal consent for manual Yes treatment Soft Tissue Mobilization B hamstrings/calves Mobilization Type Instrument Assisted, Oscillations,Rolling Intensity/Depth Superficial Body Position Sidelying Comments Sidelying on pillow for comfort. Gentle, superficial rolling with both rolling pin and flat PT hands for muscle relaxation, tissue elongation. Pt reports soft tissue mobilization more tolerable with diffuse pressure Manual Techniques contract-relax Type B HS Body Position Supine Reps/Duration 5x5, 2 min sustained stretch, 30 sec in new range Comments Pt foot on PT shoulder, hip extension contraction with gentle progression through hip flexion for hamstring stretch . Increased tension with PT performing passive ankle dorsiflexion. R more limited than LLE, but palpable relaxation Self-Care/Home Management Treatment Education Patient Education Home Exercise Program,Pain Management Caregiver Education Educated pt's on rolling pin or hand for gentle soft tissue mobilization, recommending performing prior to stretching. Educated on hydration, recommending pt and follow up with pt's kidney specialist or PCP regarding correct hydration, possible electrolyte use if appropriate for pt to help decrease muscle cramps especially at night. Educated briefly on exercises for safety prior to standing: january, ankle pumps, LAQ Other Education HEP: FERNADNO CABRERA PT-OP-T Assessment and Plan Start: 05/07/24 11:15 Freq: Status: Active Protocol: Document 05/09/24 13:00 NM (Rec: 05/09/24 13:49 NM [id number]) Physical Therapy Assessment Goals Four Impairment gait Impairment maximal distance 1 mile w/o AD Short Term Goal (STG) If appropriate, pt will use LRAD during daily ambulation in order to demonstrate improved stability, symptom management, and increase confidence with ambulation while on hikes STG Duration 6 weeks Green Marketing Specialist Goal (LTG) Pt will report that he is able to ambulate any distance during his daily ambulation with his without pain at least 4/7 days during the week LTG Duration 10 weeks Three Impairment hamstring length Impairment R hamstring length 120 deg, L hamstring length 130 deg Green Marketing Specialist Goal (LTG) Pt will improve B hamstring length to at least 140 deg bilaterally in order to demonstrate improved knee extension for TKE during gait and to improve BLE flexibility to offload pressure on his back LTG Duration 10 weeks Two Impairment strength Impairment 5x STS 16.6 sec Short Term Goal (STG) Pt will be able to perform at least 5/10 reps of sit to stands without UE assistance and without increase in baseline pain in order to demonstrate improved BLE strength for transfers and activity tolerance STG Duration 5 weeks Intermediate Goal (LTG) Pt will be able to perform 5x STS test in less than 14.8 seconds (age-related norm) without UE assistance and without increase in baseline pain in order to demonstrate improved BLE strength for transfers and activity tolerance LTG Duration 10 weeks One Impairment oswestry Impairment Oswestry 16/50 Intermediate Goal (LTG) Pt will report Oswestry <16/50 in order to demonstrate improved symptom management, activity tolerance, and QOL LTG Duration 10 weeks Assessment Summary Assessment Pt tolerated session fair and requires increased time with activity. He experienced 2 muscle cramps in RLE with attempted figure 4 stretch, reduced with rolling. Pt with good feedback for contract- relax manual stretching and gentle soft tissue mobilization. He has a very rigid trunk and contracted hamstrings, R>L. Pt has visible muscle relaxation following contract-relax, stretching, and soft tissue mobilization. Able to perform LAQ with nearly full TKE in BLE, R more limited than L, following previous interventions. However, hamstring length still severely limited, which likely influences back pain. Trialed small range lumbar trunk rotation to reduce rigidity and assist with overall mobility. Pt did experience drop in blood pressure with orthostatic testing but was asymptomatic. PT educated briefly on safety with transitions and seated exercises to perform if pt can remember prior to standing to improve circulation. Pt would benefit from skilled PT to address flexibility and BLE strength in order to improve symptom management. Physical Therapy Plan Frequency and Duration Frequency of Treatment 1-2x/wk Duration of treatment (weeks) 10 Plan of Care Start Date 05/07/24 Plan of Care End Date 07/19/24 Therapeutic Interventions Therapeutic Interventions Balance Training,Coordination Training,Gait Training,Home Exercise Program,Joint Mobilizations,Manual Therapy, Neuromuscular Re-education, Orthotic/Prosthetic Management ,Patient/Caregiver Education, Self-Care/Home Management, Sensory Integration,Soft Tissue Mobilization,Taping, Therapeutic Activities, Therapeutic Exercises Modalities Cold Pack/Ice Massage,Electric Stimulation,Hot Packs, Ultrasound Next Visit Focus/Plan Next Note Type Treatment Note Next Visit Plan Stretching: figure 4 (less hip flex), hamstring in supine ( trial with towel vs passive), hip flexor stretching. Hip abduction in standing vs sitting, LAQ, Hip hinge with dowel for lengthening, supine knee flex/ext, TKE, STS; core bracing check orthostatics plan of care: improve hip muscle flexibility, core and hip strength
--- NOTE | 2024-05-13 12:50 | PT.OTN ---
Current Diagnoses Parkinson's disease with dyskinesia, with fluctuations (05/13/24) Stiffness of right knee, not elsewhere classified (05/13/24) Dorsalgia, unspecified (05/13/24) Myalgia, other site (05/13/24) Other lack of coordination (05/13/24) Weakness (05/13/24) Physical Therapy Treatment Note PT-OP-A Visit Information Start: 05/07/24 11:15 Freq: Status: Active Protocol: Document 05/13/24 10:31 NM (Rec: 05/13/24 11:19 NM [id number]) Out-Patient Physical Therapy Visit Information Visit Information Visit Type Treatment Note Visit Note KX after 19 visits Visit Start Time 10:37 Visit Stop Time 11:15 Visit Number 3 Evaluation Information Evaluation Date 05/07/24 Precautions Precautions PD, vitals, fall risk, memory, macular degeneration ( difficulty with central vision ) PT-OP-B Current Condition Start: 05/07/24 11:15 Freq: Status: Active Protocol: Document 05/07/24 11:17 NM (Rec: 05/07/24 12:21 NM [id number]) Current Condition History of Current Condition Onset Date 2020, chronic and ongoing Current Complaints pain, mobility, balance History of Current Condition Pt has PD, dx in 2020. Pt has difficulty with memory, tremors, bradykinesia; no medication for PD. Pt has hx of spinal surgery (2020), blood clots (on medication for this and blood pressure), macular degeneration, chronic kidney disease. Pt presents with B buttock pain, starting in 2019. He had a laminectomy, fusion of lower lumbar spine. After surgery, recovery was long and slow. Pt went from not being able to stand up straight to being able to stand up straight. This pain was present prior to surgery, but still hasn't gone away. The pain initially began on R side, but shifts back and forth. Pt gets leg cramps, varsha at night. Pt has a cane, prn uses walking sticks. Prior Treatments and Tests Previous PT following spine surgery Treatment Goals Patient/Caregiver Goals make pain go away PT-OP-C Subjective Start: 05/07/24 11:15 Freq: Status: Active Protocol: Document 05/13/24 10:31 NM (Rec: 05/13/24 11:19 NM [id number]) OP-PT Subjective Patient Comments Patient Comments Pt reports no adverse affects after last session. reports that they did all exercises at home without issue PT-OP-E Functional Tests Start: 05/07/24 11:15 Freq: Status: Active Protocol: Document 05/07/24 11:17 NM (Rec: 05/07/24 12:21 NM [id number]) Functional Tests Five Times Sit to Stand Test Score 16.6 secs Comments w/o hand support Other Forward Trunk Flexion Test Name of Test 75% of ROM Comment reports minimal pain with bending PT-OP-F Manual Assessment Start: 05/07/24 11:15 Freq: Status: Active Protocol: Document 05/07/24 11:17 NM (Rec: 05/07/24 12:21 NM [id number]) Manual Assessments Soft Tissue Assessment Soft Tissue Mobility Assessment Decreased B hamstring length, tightness in hip flexors as well. Lacking R knee extension Joint Mobility Assessment Joint Mobility Assessment Hypomobility of lumbar spine and hips. Maintains B hip and knee flexion in stance, gait PT-OP-G Mobility & Gait Start: 05/07/24 11:15 Freq: Status: Active Protocol: Document 05/07/24 11:17 NM (Rec: 05/07/24 12:21 NM [id number]) OP Mobility Evaluation Bed Mobility Supine to and from Sit Low back pain reproduced with rotation during transition; close SBA OP Gait Assessment Gait Distance (Feet) 150 Factors Limiting Gait Function Factors Limiting Gait Function Decreased Strength,Difficulty Following Directions,Limited Range of Motion,Pain Comments Gait Comments Slow gait speed with forward flexed trunk, limited step length and foot clearance PT-OP-J Posture/Palpation/Skin Start: 05/07/24 11:15 Freq: Status: Active Protocol: Document 05/07/24 11:17 NM (Rec: 05/07/24 12:21 NM [id number]) Posture Evaluation Comments Posture Comments Demonstrates forward flexed trunk posture with forward head, rounded shoulders, and slight kyphosis. Demos anterior pelvic tilt Palpation Assessment Location lumbar spine Palpation Details Tenderness post sit to stand along iliac crests bilaterally , R>L, and paraspinals. No tenderness along midline buttock Palpation Details Tenderness along piriformis, SIJ, hamstrings PT-OP-K Range of Motion Start: 05/07/24 11:15 Freq: Status: Active Protocol: Document 05/07/24 11:17 NM (Rec: 05/07/24 12:21 NM [id number]) Lumbar Spine Range of Motion Lumbar Spine Active Percentage Flexion 75 Extension 50 Lateral Flexion Left 50 Lateral Flexion Right 50 Hip Goniometric Range of Motion Hip Right Flexion w/Knee Flexed 105 Internal Rotation 25 External Rotation 20 Left Flexion w/Knee Flexed 90 Internal Rotation 30 External Rotation 25 Comments IR Knee Goniometric Range of Motion Knee Right Flexion Active (degrees) 130 Extension Active (degrees) 5 Comments HS 120 deg Left Flexion Active (degrees) 130 Extension Active (degrees) 0 Comments HS 130 deg PT-OP-L Special Tests Start: 05/07/24 11:15 Freq: Status: Active Protocol: Document 05/07/24 11:17 NM (Rec: 05/07/24 12:21 NM [id number]) Special Tests Lumbar Spine Special Tests Slump Test Results - Connelly/Quadrant Test Results - PT-OP-M Strength Start: 05/07/24 11:15 Freq: Status: Active Protocol: Document 05/07/24 11:17 NM (Rec: 05/07/24 12:21 NM [id number]) Trunk Strength Trunk Manual Muscle Testing Flexion 4 Good Extension 4 Good Rotation Left 4 Good Rotation Right 4 Good Lateral Flexion Left 4 Good Lateral Flexion Right 4 Good Hip Strength Hip Manual Muscle Testing Right Flexion (L2) 4- Good- Extension (S1) 4- Good- Abduction 4- Good- Adduction 4- Good- External Rotation 4- Good- Internal Rotation 4- Good- Left Flexion (L2) 4- Good- Extension (S1) 4- Good- Abduction 4- Good- Adduction 4- Good- External Rotation 4- Good- Internal Rotation 4- Good- Knee Strength Knee Manual Muscle Testing Right Flexion (S2) 4- Good- Extension (L3) 4- Good- Left Flexion (S2) 4- Good- Extension (L3) 4- Good- Ankle/Foot Strength Ankle and Foot Manual Muscle Testing Right Dorsiflexion (L4) 4 Good Plantarflexion (S1) 4 Good Comments Measured in sitting Left Dorsiflexion (L4) 4 Good Plantarflexion (S1) 4 Good Comments Measured in sitting PT-OP-Q Treatments Start: 05/07/24 11:15 Freq: Status: Active Protocol: Document 05/13/24 10:31 NM (Rec: 05/13/24 11:19 NM [id number]) Therapeutic Exercises Supine Exercises hamstring mobilization Side bilateral Resistance towel around legs Reps/Minutes 10 ea, 60 hold total time Comments PT and providing verbal/ visual cues, limited B length LTR Supine Exercise Name hooklying Side bilateral Reps/Minutes 2 minutes Comments increased ROM today, pain free Sidelying Exercises clams Sidelying Exercise Name requires increased time Side bilateral Reps/Minutes 15, 10 with 5 hold Comments moderate cueing for form, limit trunk rotation Sitting Exercises LAQ Sitting Exercise Name following stretching Side bilateral Equipment Used PT hand for target Reps/Minutes 10 ea Comments cued thigh on table; improved form w/ target, TKE post stretch, R limited hamstring stretch Sitting Exercise Name HEP review: passive stretch Side bilateral Equipment Used slight forward lean Reps/Minutes 1 minute Comments gentle fwd lean Manual Therapy Treatment Consent Patient gave verbal consent for manual Yes treatment Soft Tissue Mobilization B hamstrings/calves Body Location and B glutes Mobilization Type Instrument Assisted, Oscillations,Rolling Intensity/Depth Superficial Body Position Sidelying Comments Sidelying on pillow for comfort, legs extended for lengthening of hamstrings and glutes. Gentle, superficial to moderate rolling with both rolling pin for muscle relaxation, tissue elongation. Pt reports soft tissue mobilization more tolerable with diffuse pressure. Improved tolerance compared to last session. Manual Techniques contract-relax Type B HS Body Position Supine Reps/Duration 5x5, 2 min sustained stretch, 30 sec in new range Comments Pt foot on PT shoulder, hip extension contraction with gentle progression through hip flexion for hamstring stretch . Increased tension with PT performing passive ankle dorsiflexion. R more limited than LLE, but palpable relaxation Currently 60 deg L hamstring length, 50 deg R hamstring length Self-Care/Home Management Treatment Education Patient Education Home Exercise Program Other Education HEP: shelbi PT-OP-T Assessment and Plan Start: 05/07/24 11:15 Freq: Status: Active Protocol: Document 05/13/24 10:31 NM (Rec: 05/13/24 11:19 NM [id number]) Physical Therapy Assessment Goals Four Impairment gait Impairment maximal distance 1 mile w/o AD Short Term Goal (STG) If appropriate, pt will use LRAD during daily ambulation in order to demonstrate improved stability, symptom management, and increase confidence with ambulation while on hikes STG Duration 6 weeks Half-Way Goal (LTG) Pt will report that he is able to ambulate any distance during his daily ambulation with his without pain at least 4/7 days during the week LTG Duration 10 weeks Three Impairment hamstring length Impairment R hamstring length 120 deg, L hamstring length 130 deg Half-Way Goal (LTG) Pt will improve B hamstring length to at least 140 deg bilaterally in order to demonstrate improved knee extension for TKE during gait and to improve BLE flexibility to offload pressure on his back LTG Duration 10 weeks Two Impairment strength Impairment 5x STS 16.6 sec Short Term Goal (STG) Pt will be able to perform at least 5/10 reps of sit to stands without UE assistance and without increase in baseline pain in order to demonstrate improved BLE strength for transfers and activity tolerance STG Duration 5 weeks Half-Way Goal (LTG) Pt will be able to perform 5x STS test in less than 14.8 seconds (age-related norm) without UE assistance and without increase in baseline pain in order to demonstrate improved BLE strength for transfers and activity tolerance LTG Duration 10 weeks One Impairment oswestry Impairment Oswestry 16/50 Half-Way Goal (LTG) Pt will report Oswestry <16/50 in order to demonstrate improved symptom management, activity tolerance, and QOL LTG Duration 10 weeks Assessment Summary Assessment Pt with improved tolerance for stretching but continues to have limited HS length bilaterally. Requires moderate verbal, visual, and tactile cues for correct execution with exercises. Currently 60 deg L hamstring length, 50 deg R hamstring length. Initiated supine hamstring mobilization following contract-relax. All stretching followed by exercises promoting lengthening of posterior chain . Pt has good feedback for LTR today and sidelying clams, which were initiated in treatment. Pt would benefit from skilled PT to promote BLE flexibility and strengthening for improved symptom management and activity tolerance. Physical Therapy Plan Frequency and Duration Frequency of Treatment 1-2x/wk Duration of treatment (weeks) 10 Plan of Care Start Date 05/07/24 Plan of Care End Date 07/19/24 Therapeutic Interventions Therapeutic Interventions Balance Training,Coordination Training,Gait Training,Home Exercise Program,Joint Mobilizations,Manual Therapy, Neuromuscular Re-education, Orthotic/Prosthetic Management ,Patient/Caregiver Education, Self-Care/Home Management, Sensory Integration,Soft Tissue Mobilization,Taping, Therapeutic Activities, Therapeutic Exercises Modalities Cold Pack/Ice Massage,Electric Stimulation,Hot Packs, Ultrasound Next Visit Focus/Plan Next Note Type Treatment Note Next Visit Plan BKFO vs clam. Continue with lengthening HS, glutes. Trial calf stretch Stretching: piriformis (cross body) vs figure 4 (less hip flex) vs seated figure 4, hamstring in supine (trial with towel vs passive), hip flexor stretching. Hip abduction in standing vs sitting, LAQ, Hip hinge with dowel for lengthening, supine knee flex/ext, TKE, STS; core bracing if able to understand check orthostatics plan of care: improve hip muscle flexibility, core and hip strength
--- NOTE | 2024-05-15 12:16 | PT.OTN ---
Current Diagnoses Parkinson's disease with dyskinesia, with fluctuations (05/15/24) Stiffness of right knee, not elsewhere classified (05/15/24) Dorsalgia, unspecified (05/15/24) Myalgia, other site (05/15/24) Other lack of coordination (05/15/24) Weakness (05/15/24) Physical Therapy Treatment Note PT-OP-A Visit Information Start: 05/07/24 11:15 Freq: Status: Active Protocol: Document 05/15/24 11:14 AB (Rec: 05/15/24 12:16 AB [id number]) Out-Patient Physical Therapy Visit Information Visit Information Visit Type Treatment Note Visit Note KX after 19 visits [email or web address] Access [email or web address]: [email or web address] Visit Start Time 11:18 Visit Stop Time 12:05 Visit Number 4 Number of [employer] Visits 1 Evaluation Information Evaluation Date 05/07/24 Precautions Precautions PD, vitals, fall risk, memory, macular degeneration ( difficulty with central vision ) PT-OP-B Current Condition Start: 05/07/24 11:15 Freq: Status: Active Protocol: Document 05/07/24 11:17 NM (Rec: 05/07/24 12:21 NM [id number]) Current Condition History of Current Condition Onset Date 2020, chronic and ongoing Current Complaints pain, mobility, balance History of Current Condition Pt has PD, dx in 2020. Pt has difficulty with memory, tremors, bradykinesia; no medication for PD. Pt has hx of spinal surgery (2020), blood clots (on medication for this and blood pressure), macular degeneration, chronic kidney disease. Pt presents with B buttock pain, starting in 2019. He had a laminectomy, fusion of lower lumbar spine. After surgery, recovery was long and slow. Pt went from not being able to stand up straight to being able to stand up straight. This pain was present prior to surgery, but still hasn't gone away. The pain initially began on R side, but shifts back and forth. Pt gets leg cramps, varsha at night. Pt has a cane, prn uses walking sticks. Prior Treatments and Tests Previous PT following spine surgery Treatment Goals Patient/Caregiver Goals make pain go away PT-OP-C Subjective Start: 05/07/24 11:15 Freq: Status: Active Protocol: Document 05/15/24 11:14 AB (Rec: 05/15/24 12:16 AB [id number]) OP-PT Subjective Patient Comments Patient Comments Patient reports 80% pain right 20 % left but not always the same. Patient reports it is difficult to say if the pain is any better, also comments no change in mobility. reports MD will be checking labs to see if Gatoraid is OK, just water for now. PT-OP-E Functional Tests Start: 05/07/24 11:15 Freq: Status: Active Protocol: Document 05/07/24 11:17 NM (Rec: 05/07/24 12:21 NM [id number]) Functional Tests Five Times Sit to Stand Test Score 16.6 secs Comments w/o hand support Other Forward Trunk Flexion Test Name of Test 75% of ROM Comment reports minimal pain with bending PT-OP-F Manual Assessment Start: 05/07/24 11:15 Freq: Status: Active Protocol: Document 05/07/24 11:17 NM (Rec: 05/07/24 12:21 NM [id number]) Manual Assessments Soft Tissue Assessment Soft Tissue Mobility Assessment Decreased B hamstring length, tightness in hip flexors as well. Lacking R knee extension Joint Mobility Assessment Joint Mobility Assessment Hypomobility of lumbar spine and hips. Maintains B hip and knee flexion in stance, gait PT-OP-G Mobility & Gait Start: 05/07/24 11:15 Freq: Status: Active Protocol: Document 05/07/24 11:17 NM (Rec: 05/07/24 12:21 NM [id number]) OP Mobility Evaluation Bed Mobility Supine to and from Sit Low back pain reproduced with rotation during transition; close SBA OP Gait Assessment Gait Distance (Feet) 150 Factors Limiting Gait Function Factors Limiting Gait Function Decreased Strength,Difficulty Following Directions,Limited Range of Motion,Pain Comments Gait Comments Slow gait speed with forward flexed trunk, limited step length and foot clearance PT-OP-J Posture/Palpation/Skin Start: 05/07/24 11:15 Freq: Status: Active Protocol: Document 05/07/24 11:17 NM (Rec: 05/07/24 12:21 NM [id number]) Posture Evaluation Comments Posture Comments Demonstrates forward flexed trunk posture with forward head, rounded shoulders, and slight kyphosis. Demos anterior pelvic tilt Palpation Assessment Location lumbar spine Palpation Details Tenderness post sit to stand along iliac crests bilaterally , R>L, and paraspinals. No tenderness along midline buttock Palpation Details Tenderness along piriformis, SIJ, hamstrings PT-OP-K Range of Motion Start: 05/07/24 11:15 Freq: Status: Active Protocol: Document 05/07/24 11:17 NM (Rec: 05/07/24 12:21 NM [id number]) Lumbar Spine Range of Motion Lumbar Spine Active Percentage Flexion 75 Extension 50 Lateral Flexion Left 50 Lateral Flexion Right 50 Hip Goniometric Range of Motion Hip Right Flexion w/Knee Flexed 105 Internal Rotation 25 External Rotation 20 Left Flexion w/Knee Flexed 90 Internal Rotation 30 External Rotation 25 Comments IR Knee Goniometric Range of Motion Knee Right Flexion Active (degrees) 130 Extension Active (degrees) 5 Comments HS 120 deg Left Flexion Active (degrees) 130 Extension Active (degrees) 0 Comments HS 130 deg PT-OP-L Special Tests Start: 05/07/24 11:15 Freq: Status: Active Protocol: Document 05/07/24 11:17 NM (Rec: 05/07/24 12:21 NM [id number]) Special Tests Lumbar Spine Special Tests Slump Test Results - Connelly/Quadrant Test Results - PT-OP-M Strength Start: 05/07/24 11:15 Freq: Status: Active Protocol: Document 05/07/24 11:17 NM (Rec: 05/07/24 12:21 NM [id number]) Trunk Strength Trunk Manual Muscle Testing Flexion 4 Good Extension 4 Good Rotation Left 4 Good Rotation Right 4 Good Lateral Flexion Left 4 Good Lateral Flexion Right 4 Good Hip Strength Hip Manual Muscle Testing Right Flexion (L2) 4- Good- Extension (S1) 4- Good- Abduction 4- Good- Adduction 4- Good- External Rotation 4- Good- Internal Rotation 4- Good- Left Flexion (L2) 4- Good- Extension (S1) 4- Good- Abduction 4- Good- Adduction 4- Good- External Rotation 4- Good- Internal Rotation 4- Good- Knee Strength Knee Manual Muscle Testing Right Flexion (S2) 4- Good- Extension (L3) 4- Good- Left Flexion (S2) 4- Good- Extension (L3) 4- Good- Ankle/Foot Strength Ankle and Foot Manual Muscle Testing Right Dorsiflexion (L4) 4 Good Plantarflexion (S1) 4 Good Comments Measured in sitting Left Dorsiflexion (L4) 4 Good Plantarflexion (S1) 4 Good Comments Measured in sitting PT-OP-Q Treatments Start: 05/07/24 11:15 Freq: Status: Active Protocol: Document 05/15/24 11:14 AB (Rec: 05/15/24 12:16 AB [id number]) Therapeutic Exercises Supine Exercises bent knee fall out Supine Exercise Name HEP Side bilateral Reps/Minutes X10 Comments verbal and tactile cues for bracing as LE moves out to the side hamstring stretch Supine Exercise Name from hooklying Resistance left and right Reps/Minutes 60 sec each LE X 1 piriformis stretch Supine Exercise Name hooklying - unable Side right Comments trial Sitting Exercises hip IR And ER Sitting Exercise Name AROM HEP Side bilateral Reps/Minutes X12 each LE Comments Verbal and visual cues Therapeutic Activity Therapeutic Activity sidelying to sitting Name HEP Reps/Minutes X2 trials Comments Verbal and visual cues Manual Therapy Treatment Soft Tissue Mobilization B hamstrings/calves Body Location and B glutes Mobilization Type Cross-Friction,Rolling Intensity/Depth Moderate Body Position Sidelying Comments monitored for pain performed prior to MET Manual Techniques MET for right AI left PI and pubic shotgun Reps/Duration 6X 6 sec each PT-OP-T Assessment and Plan Start: 05/07/24 11:15 Freq: Status: Active Protocol: Document 05/15/24 11:14 AB (Rec: 05/15/24 12:16 AB [id number]) Physical Therapy Assessment Goals Four Impairment gait Impairment maximal distance 1 mile w/o AD Short Term Goal (STG) If appropriate, pt will use LRAD during daily ambulation in order to demonstrate improved stability, symptom management, and increase confidence with ambulation while on hikes STG Duration 6 weeks Custodial Goal (LTG) Pt will report that he is able to ambulate any distance during his daily ambulation with his without pain at least 4/7 days during the week LTG Duration 10 weeks Three Impairment hamstring length Impairment R hamstring length 120 deg, L hamstring length 130 deg Professional Athlete Goal (LTG) Pt will improve B hamstring length to at least 140 deg bilaterally in order to demonstrate improved knee extension for TKE during gait and to improve BLE flexibility to offload pressure on his back LTG Duration 10 weeks Two Impairment strength Impairment 5x STS 16.6 sec Short Term Goal (STG) Pt will be able to perform at least 5/10 reps of sit to stands without UE assistance and without increase in baseline pain in order to demonstrate improved BLE strength for transfers and activity tolerance STG Duration 5 weeks Professional Athlete Goal (LTG) Pt will be able to perform 5x STS test in less than 14.8 seconds (age-related norm) without UE assistance and without increase in baseline pain in order to demonstrate improved BLE strength for transfers and activity tolerance LTG Duration 10 weeks One Impairment oswestry Impairment Oswestry 16/50 Professional Athlete Goal (LTG) Pt will report Oswestry <16/50 in order to demonstrate improved symptom management, activity tolerance, and QOL LTG Duration 10 weeks Assessment Summary Assessment Patient reports having no back pain post standing up end of session, but reports 3/10 right hip pain post ambulation 12 feet without device commenting it is back and gestures to right hip. Physical Therapy Plan Frequency and Duration Frequency of Treatment 1-2x/wk Duration of treatment (weeks) 10 Plan of Care Start Date 05/07/24 Plan of Care End Date 07/19/24 Next Visit Focus/Plan Next Note Type Treatment Note Next Visit Plan Rreview BKFO vs clam. Continue with lengthening HS, glutes. Trial calf stretch Stretching: review AROM IR and ER vs progression to piriformis (cross body) vs figure 4 (less hip flex) vs seated figure 4, hamstring in supine (trial with towel vs passive), hip flexor stretching. Hip abduction in standing vs sitting, LAQ, Hip hinge with dowel for lengthening, supine knee flex/ ext, TKE, STS; core bracing if able to understand check orthostatics plan of care: improve hip muscle flexibility, core and hip strength
--- NOTE | 2024-05-22 11:37 | PT.OTN ---
Current Diagnoses Parkinson's disease with dyskinesia, with fluctuations (05/22/24) Stiffness of right knee, not elsewhere classified (05/22/24) Dorsalgia, unspecified (05/22/24) Myalgia, other site (05/22/24) Other lack of coordination (05/22/24) Weakness (05/22/24) Physical Therapy Treatment Note PT-OP-A Visit Information Start: 05/07/24 11:15 Freq: Status: Active Protocol: Document 05/22/24 10:27 NM (Rec: 05/22/24 11:37 NM [id number]) Out-Patient Physical Therapy Visit Information Visit Information Visit Type Treatment Note Visit Note KX after 19 visits Visit Start Time 10:30 Visit Stop Time 11:18 Visit Number 5 Evaluation Information Evaluation Date 05/07/24 Precautions Precautions PD, vitals, fall risk, memory, macular degeneration ( difficulty with central vision ) PT-OP-B Current Condition Start: 05/07/24 11:15 Freq: Status: Active Protocol: Document 05/07/24 11:17 NM (Rec: 05/07/24 12:21 NM [id number]) Current Condition History of Current Condition Onset Date 2020, chronic and ongoing Current Complaints pain, mobility, balance History of Current Condition Pt has PD, dx in 2020. Pt has difficulty with memory, tremors, bradykinesia; no medication for PD. Pt has hx of spinal surgery (2020), blood clots (on medication for this and blood pressure), macular degeneration, chronic kidney disease. Pt presents with B buttock pain, starting in 2019. He had a laminectomy, fusion of lower lumbar spine. After surgery, recovery was long and slow. Pt went from not being able to stand up straight to being able to stand up straight. This pain was present prior to surgery, but still hasn't gone away. The pain initially began on R side, but shifts back and forth. Pt gets leg cramps, varsha at night. Pt has a cane, prn uses walking sticks. Prior Treatments and Tests Previous PT following spine surgery Treatment Goals Patient/Caregiver Goals make pain go away PT-OP-C Subjective Start: 05/07/24 11:15 Freq: Status: Active Protocol: Document 05/22/24 10:27 NM (Rec: 05/22/24 11:37 NM [id number]) OP-PT Subjective Patient Comments Patient Comments Pt reports no change in symptoms since last session. Continues to have back pain. reports that they have been doing exercises without issue. PT-OP-E Functional Tests Start: 05/07/24 11:15 Freq: Status: Active Protocol: Document 05/07/24 11:17 NM (Rec: 05/07/24 12:21 NM [id number]) Functional Tests Five Times Sit to Stand Test Score 16.6 secs Comments w/o hand support Other Forward Trunk Flexion Test Name of Test 75% of ROM Comment reports minimal pain with bending PT-OP-F Manual Assessment Start: 05/07/24 11:15 Freq: Status: Active Protocol: Document 05/07/24 11:17 NM (Rec: 05/07/24 12:21 NM [id number]) Manual Assessments Soft Tissue Assessment Soft Tissue Mobility Assessment Decreased B hamstring length, tightness in hip flexors as well. Lacking R knee extension Joint Mobility Assessment Joint Mobility Assessment Hypomobility of lumbar spine and hips. Maintains B hip and knee flexion in stance, gait PT-OP-G Mobility & Gait Start: 05/07/24 11:15 Freq: Status: Active Protocol: Document 05/07/24 11:17 NM (Rec: 05/07/24 12:21 NM [id number]) OP Mobility Evaluation Bed Mobility Supine to and from Sit Low back pain reproduced with rotation during transition; close SBA OP Gait Assessment Gait Distance (Feet) 150 Factors Limiting Gait Function Factors Limiting Gait Function Decreased Strength,Difficulty Following Directions,Limited Range of Motion,Pain Comments Gait Comments Slow gait speed with forward flexed trunk, limited step length and foot clearance PT-OP-J Posture/Palpation/Skin Start: 05/07/24 11:15 Freq: Status: Active Protocol: Document 05/07/24 11:17 NM (Rec: 05/07/24 12:21 NM [id number]) Posture Evaluation Comments Posture Comments Demonstrates forward flexed trunk posture with forward head, rounded shoulders, and slight kyphosis. Demos anterior pelvic tilt Palpation Assessment Location lumbar spine Palpation Details Tenderness post sit to stand along iliac crests bilaterally , R>L, and paraspinals. No tenderness along midline buttock Palpation Details Tenderness along piriformis, SIJ, hamstrings PT-OP-K Range of Motion Start: 05/07/24 11:15 Freq: Status: Active Protocol: Document 05/07/24 11:17 NM (Rec: 05/07/24 12:21 NM [id number]) Lumbar Spine Range of Motion Lumbar Spine Active Percentage Flexion 75 Extension 50 Lateral Flexion Left 50 Lateral Flexion Right 50 Hip Goniometric Range of Motion Hip Right Flexion w/Knee Flexed 105 Internal Rotation 25 External Rotation 20 Left Flexion w/Knee Flexed 90 Internal Rotation 30 External Rotation 25 Comments IR Knee Goniometric Range of Motion Knee Right Flexion Active (degrees) 130 Extension Active (degrees) 5 Comments HS 120 deg Left Flexion Active (degrees) 130 Extension Active (degrees) 0 Comments HS 130 deg PT-OP-L Special Tests Start: 05/07/24 11:15 Freq: Status: Active Protocol: Document 05/07/24 11:17 NM (Rec: 05/07/24 12:21 NM [id number]) Special Tests Lumbar Spine Special Tests Slump Test Results - Connelly/Quadrant Test Results - PT-OP-M Strength Start: 05/07/24 11:15 Freq: Status: Active Protocol: Document 05/07/24 11:17 NM (Rec: 05/07/24 12:21 NM [id number]) Trunk Strength Trunk Manual Muscle Testing Flexion 4 Good Extension 4 Good Rotation Left 4 Good Rotation Right 4 Good Lateral Flexion Left 4 Good Lateral Flexion Right 4 Good Hip Strength Hip Manual Muscle Testing Right Flexion (L2) 4- Good- Extension (S1) 4- Good- Abduction 4- Good- Adduction 4- Good- External Rotation 4- Good- Internal Rotation 4- Good- Left Flexion (L2) 4- Good- Extension (S1) 4- Good- Abduction 4- Good- Adduction 4- Good- External Rotation 4- Good- Internal Rotation 4- Good- Knee Strength Knee Manual Muscle Testing Right Flexion (S2) 4- Good- Extension (L3) 4- Good- Left Flexion (S2) 4- Good- Extension (L3) 4- Good- Ankle/Foot Strength Ankle and Foot Manual Muscle Testing Right Dorsiflexion (L4) 4 Good Plantarflexion (S1) 4 Good Comments Measured in sitting Left Dorsiflexion (L4) 4 Good Plantarflexion (S1) 4 Good Comments Measured in sitting PT-OP-Q Treatments Start: 05/07/24 11:15 Freq: Status: Active Protocol: Document 05/22/24 10:27 NM (Rec: 05/22/24 11:37 NM [id number]) Therapeutic Exercises Supine Exercises bent knee fall out Supine Exercise Name HEP review Side bilateral Reps/Minutes 10 AROM, 10 w/ level 1 band Comments verbal and tactile cues for bracing as LE moves out to the side Sitting Exercises hip ER stretch Sitting Exercise Name figure 4 Side bilateral Equipment Used limited hip mobility, slight overpressure Reps/Minutes 30 Comments maximal cues for form LAQ Sitting Exercise Name contract-relax with HSC > LAQ Side bilateral Resistance level 2 band Reps/Minutes 10 with 5 hold into knee flex , 5 hold into knee ext for HS lengthening Comments pain free; R more limited in HS length than L Standing Exercises postural extension Standing Exercise Name low row Side bilateral Resistance level 1 band Equipment Used staggered stance Reps/Minutes 10 x 2 Comments cued for form; pt reports R sided low back pain calf stretch Standing Exercise Name with HS stretch Side bilateral Equipment Used staggered stance Reps/Minutes 60 ea leg, hand support on elevated plinth Comments cueing for correct form, heel on ground to maintain gentle stretch low back stretch Standing Exercise Name 1. counter top stretch into fwd flex, 2. fwd and lateral flexion Side bilateral Equipment Used orange ugand[place] ball on elevated plinth Reps/Minutes 1. 2x60 total with several reps of flex/ext, 2. 60 total w/ ~10rep ea Comments feels good, cued to make fists to avoid wrist pain Other Exercises self-STM Other Exercise Name 1. HS and calves, 2. piriformis w/ hip ER/IR Side bilateral Equipment Used rolling pin Reps/Minutes 1. 4 minutes total, 2. 1 minute R side only Comments verbal cues for correct execution; reports improvement w/ piriformis Therapeutic Activity Therapeutic Activity sidelying to sitting Name HEP review Reps/Minutes 1 rep Comments Verbal and visual cues. Educated on rationale and safety for low back and pain management as HEP review PT-OP-T Assessment and Plan Start: 05/07/24 11:15 Freq: Status: Active Protocol: Document 05/22/24 10:27 NM (Rec: 05/22/24 11:37 NM [id number]) Physical Therapy Assessment Goals Four Impairment gait Impairment maximal distance 1 mile w/o AD Short Term Goal (STG) If appropriate, pt will use LRAD during daily ambulation in order to demonstrate improved stability, symptom management, and increase confidence with ambulation while on hikes STG Duration 6 weeks Intermediate Goal (LTG) Pt will report that he is able to ambulate any distance during his daily ambulation with his without pain at least 4/7 days during the week LTG Duration 10 weeks Three Impairment hamstring length Impairment R hamstring length 120 deg, L hamstring length 130 deg Intermediate Goal (LTG) Pt will improve B hamstring length to at least 140 deg bilaterally in order to demonstrate improved knee extension for TKE during gait and to improve BLE flexibility to offload pressure on his back LTG Duration 10 weeks Two Impairment strength Impairment 5x STS 16.6 sec Short Term Goal (STG) Pt will be able to perform at least 5/10 reps of sit to stands without UE assistance and without increase in baseline pain in order to demonstrate improved BLE strength for transfers and activity tolerance STG Duration 5 weeks Home Office Representative Goal (LTG) Pt will be able to perform 5x STS test in less than 14.8 seconds (age-related norm) without UE assistance and without increase in baseline pain in order to demonstrate improved BLE strength for transfers and activity tolerance LTG Duration 10 weeks One Impairment oswestry Impairment Oswestry 16/50 Intermediate Goal (LTG) Pt will report Oswestry <16/50 in order to demonstrate improved symptom management, activity tolerance, and QOL LTG Duration 10 weeks Assessment Summary Assessment Pt reports no pain at end of session but did have brief R sided exacerbation after performing low rows. PT educated pt on informing PT if an exercise causes discomfort . Continued with contract- relax of quads for hamstrings inhibition. Initiated several stretches to improve trunk and BLE posterior chain flexibility. Pt requires extensive cueing and modifications for correct execution. However, exhibits good tolerance to all stretches. Pt continues to have limitations in B hamstring length and B hip mobility, but R is significantly more limited than LLE. Pt would benefit from skilled PT to improve global flexibility, global trunk/BLE strength in order to improve symptom management and activity tolerance. Physical Therapy Plan Frequency and Duration Frequency of Treatment 1-2x/wk Duration of treatment (weeks) 10 Plan of Care Start Date 05/07/24 Plan of Care End Date 07/19/24 Therapeutic Interventions Therapeutic Interventions Balance Training,Coordination Training,Gait Training,Home Exercise Program,Joint Mobilizations,Manual Therapy, Neuromuscular Re-education, Orthotic/Prosthetic Management ,Patient/Caregiver Education, Self-Care/Home Management, Sensory Integration,Soft Tissue Mobilization,Taping, Therapeutic Activities, Therapeutic Exercises Modalities Cold Pack/Ice Massage,Electric Stimulation,Hot Packs, Ultrasound Next Visit Focus/Plan Next Note Type Treatment Note Next Visit Plan continue with calf stretch/HS lengthening, trial postural extension strength (lat pull down w/ band, low row, pallof) , functional core and glute strength (trial isometrics in sitting w/ ball, side steps vs seated hip abd) Stretching: review AROM IR and ER vs progression to piriformis (cross body) vs figure 4 (less hip flex) vs seated figure 4, hamstring in supine (trial with towel vs passive), hip flexor stretching. Hip abduction in standing vs sitting, LAQ, Hip hinge with dowel for lengthening, supine knee flex/ ext, TKE, STS; core bracing if able to understand Manual to HS, low back plan of care: improve hip muscle flexibility, core and hip strength
--- NOTE | 2024-05-28 14:32 | PT.OTN ---
Current Diagnoses Parkinson's disease with dyskinesia, with fluctuations (05/28/24) Stiffness of right knee, not elsewhere classified (05/28/24) Dorsalgia, unspecified (05/28/24) Myalgia, other site (05/28/24) Other lack of coordination (05/28/24) Weakness (05/28/24) Physical Therapy Treatment Note PT-OP-A Visit Information Start: 05/07/24 11:15 Freq: Status: Active Protocol: Document 05/28/24 14:31 TS (Rec: 05/28/24 16:37 TS [id number]) Out-Patient Physical Therapy Visit Information Visit Information Visit Type Treatment Note Visit Note KX after 19 visits Visit Start Time 14:32 Visit Stop Time 15:14 Visit Number 6 Number of [employer] Visits 1 PT-OP-B Current Condition Start: 05/07/24 11:15 Freq: Status: Active Protocol: Document 05/07/24 11:17 NM (Rec: 05/07/24 12:21 NM [id number]) Current Condition History of Current Condition Onset Date 2020, chronic and ongoing Current Complaints pain, mobility, balance History of Current Condition Pt has PD, dx in 2020. Pt has difficulty with memory, tremors, bradykinesia; no medication for PD. Pt has hx of spinal surgery (2020), blood clots (on medication for this and blood pressure), macular degeneration, chronic kidney disease. Pt presents with B buttock pain, starting in 2019. He had a laminectomy, fusion of lower lumbar spine. After surgery, recovery was long and slow. Pt went from not being able to stand up straight to being able to stand up straight. This pain was present prior to surgery, but still hasn't gone away. The pain initially began on R side, but shifts back and forth. Pt gets leg cramps, varsha at night. Pt has a cane, prn uses walking sticks. Prior Treatments and Tests Previous PT following spine surgery Treatment Goals Patient/Caregiver Goals make pain go away PT-OP-C Subjective Start: 05/07/24 11:15 Freq: Status: Active Protocol: Document 05/28/24 14:31 TS (Rec: 05/28/24 16:37 TS [id number]) OP-PT Subjective Patient Comments Patient Comments Pt reports back pain continues , does not have pain at start of session today. continues to report she is helping him with his HEP. PT-OP-E Functional Tests Start: 05/07/24 11:15 Freq: Status: Active Protocol: Document 05/07/24 11:17 NM (Rec: 05/07/24 12:21 NM [id number]) Functional Tests Five Times Sit to Stand Test Score 16.6 secs Comments w/o hand support Other Forward Trunk Flexion Test Name of Test 75% of ROM Comment reports minimal pain with bending PT-OP-F Manual Assessment Start: 05/07/24 11:15 Freq: Status: Active Protocol: Document 05/07/24 11:17 NM (Rec: 05/07/24 12:21 NM [id number]) Manual Assessments Soft Tissue Assessment Soft Tissue Mobility Assessment Decreased B hamstring length, tightness in hip flexors as well. Lacking R knee extension Joint Mobility Assessment Joint Mobility Assessment Hypomobility of lumbar spine and hips. Maintains B hip and knee flexion in stance, gait PT-OP-G Mobility & Gait Start: 05/07/24 11:15 Freq: Status: Active Protocol: Document 05/07/24 11:17 NM (Rec: 05/07/24 12:21 NM [id number]) OP Mobility Evaluation Bed Mobility Supine to and from Sit Low back pain reproduced with rotation during transition; close SBA OP Gait Assessment Gait Distance (Feet) 150 Factors Limiting Gait Function Factors Limiting Gait Function Decreased Strength,Difficulty Following Directions,Limited Range of Motion,Pain Comments Gait Comments Slow gait speed with forward flexed trunk, limited step length and foot clearance PT-OP-J Posture/Palpation/Skin Start: 05/07/24 11:15 Freq: Status: Active Protocol: Document 05/07/24 11:17 NM (Rec: 05/07/24 12:21 NM [id number]) Posture Evaluation Comments Posture Comments Demonstrates forward flexed trunk posture with forward head, rounded shoulders, and slight kyphosis. Demos anterior pelvic tilt Palpation Assessment Location lumbar spine Palpation Details Tenderness post sit to stand along iliac crests bilaterally , R>L, and paraspinals. No tenderness along midline buttock Palpation Details Tenderness along piriformis, SIJ, hamstrings PT-OP-K Range of Motion Start: 05/07/24 11:15 Freq: Status: Active Protocol: Document 05/07/24 11:17 NM (Rec: 05/07/24 12:21 NM [id number]) Lumbar Spine Range of Motion Lumbar Spine Active Percentage Flexion 75 Extension 50 Lateral Flexion Left 50 Lateral Flexion Right 50 Hip Goniometric Range of Motion Hip Right Flexion w/Knee Flexed 105 Internal Rotation 25 External Rotation 20 Left Flexion w/Knee Flexed 90 Internal Rotation 30 External Rotation 25 Comments IR Knee Goniometric Range of Motion Knee Right Flexion Active (degrees) 130 Extension Active (degrees) 5 Comments HS 120 deg Left Flexion Active (degrees) 130 Extension Active (degrees) 0 Comments HS 130 deg PT-OP-L Special Tests Start: 05/07/24 11:15 Freq: Status: Active Protocol: Document 05/07/24 11:17 NM (Rec: 05/07/24 12:21 NM [id number]) Special Tests Lumbar Spine Special Tests Slump Test Results - Connelly/Quadrant Test Results - PT-OP-M Strength Start: 05/07/24 11:15 Freq: Status: Active Protocol: Document 05/07/24 11:17 NM (Rec: 05/07/24 12:21 NM [id number]) Trunk Strength Trunk Manual Muscle Testing Flexion 4 Good Extension 4 Good Rotation Left 4 Good Rotation Right 4 Good Lateral Flexion Left 4 Good Lateral Flexion Right 4 Good Hip Strength Hip Manual Muscle Testing Right Flexion (L2) 4- Good- Extension (S1) 4- Good- Abduction 4- Good- Adduction 4- Good- External Rotation 4- Good- Internal Rotation 4- Good- Left Flexion (L2) 4- Good- Extension (S1) 4- Good- Abduction 4- Good- Adduction 4- Good- External Rotation 4- Good- Internal Rotation 4- Good- Knee Strength Knee Manual Muscle Testing Right Flexion (S2) 4- Good- Extension (L3) 4- Good- Left Flexion (S2) 4- Good- Extension (L3) 4- Good- Ankle/Foot Strength Ankle and Foot Manual Muscle Testing Right Dorsiflexion (L4) 4 Good Plantarflexion (S1) 4 Good Comments Measured in sitting Left Dorsiflexion (L4) 4 Good Plantarflexion (S1) 4 Good Comments Measured in sitting PT-OP-Q Treatments Start: 05/07/24 11:15 Freq: Status: Active Protocol: Document 05/28/24 14:31 TS (Rec: 05/28/24 16:37 TS [id number]) Therapeutic Exercises Supine Exercises hamstring stretch Supine Exercise Name from hooklying Resistance left and right Reps/Minutes 60 sec each LE X 1 Comments AAROM with gait belt strap Sitting Exercises hip IR And ER Sitting Exercise Name AROM HEP Side bilateral Reps/Minutes X10 each LE Comments Verbal and tactile cues Standing Exercises Palloff Standing Exercise Name [place] band Side bilateral Reps/Minutes 2x10 Comments Max cues for setup and sequencing postural extension Standing Exercise Name low row Side bilateral Resistance [place] green band Equipment Used staggered stance Reps/Minutes 10 x 2 Comments cued for form; pt reports R sided low back pain Manual Therapy Treatment Soft Tissue Mobilization B hamstrings/calves Body Location R hamstring Mobilization Type Cross-Friction,Rolling Intensity/Depth Moderate Body Position Sidelying Comments monitored for pain PT-OP-T Assessment and Plan Start: 05/07/24 11:15 Freq: Status: Active Protocol: Document 05/28/24 14:31 TS (Rec: 05/28/24 16:37 TS [id number]) Physical Therapy Assessment Goals Four Impairment gait Impairment maximal distance 1 mile w/o AD Short Term Goal (STG) If appropriate, pt will use LRAD during daily ambulation in order to demonstrate improved stability, symptom management, and increase confidence with ambulation while on hikes STG Duration 6 weeks Senior Mechanical Technician Goal (LTG) Pt will report that he is able to ambulate any distance during his daily ambulation with his without pain at least 4/7 days during the week LTG Duration 10 weeks Three Impairment hamstring length Impairment R hamstring length 120 deg, L hamstring length 130 deg Care Home Goal (LTG) Pt will improve B hamstring length to at least 140 deg bilaterally in order to demonstrate improved knee extension for TKE during gait and to improve BLE flexibility to offload pressure on his back LTG Duration 10 weeks Two Impairment strength Impairment 5x STS 16.6 sec Short Term Goal (STG) Pt will be able to perform at least 5/10 reps of sit to stands without UE assistance and without increase in baseline pain in order to demonstrate improved BLE strength for transfers and activity tolerance STG Duration 5 weeks Senior Mechanical Technician Goal (LTG) Pt will be able to perform 5x STS test in less than 14.8 seconds (age-related norm) without UE assistance and without increase in baseline pain in order to demonstrate improved BLE strength for transfers and activity tolerance LTG Duration 10 weeks One Impairment oswestry Impairment Oswestry 16/50 Senior Mechanical Technician Goal (LTG) Pt will report Oswestry <16/50 in order to demonstrate improved symptom management, activity tolerance, and QOL LTG Duration 10 weeks Assessment Summary Assessment Pt did not reports any pain at the start or end of the session. Pt felt stronger hamstring stretch with strap in supine, he had difficulty following cues for seated hamstring stretch and with ther-ex throughout session. Spouse and pt require education and cues for HEP. Pt will continue to benfit from PT to progress flexbility, strength and functional mobility. Physical Therapy Plan Next Visit Focus/Plan Next Note Type Treatment Note Next Visit Plan Assess carryover of rows and palloff press. Initiate core ex. Continue with calf stretch /HS lengthening, trial postural extension strength ( lat pull down w/ band, low row ), functional core and glute strength (trial isometrics in sitting w/ ball, side steps vs seated hip abd)
--- NOTE | 2024-06-05 14:07 | PT.OTN ---
Current Diagnoses Parkinson's disease with dyskinesia, with fluctuations (06/05/24) Stiffness of right knee, not elsewhere classified (06/05/24) Dorsalgia, unspecified (06/05/24) Myalgia, other site (06/05/24) Other lack of coordination (06/05/24) Weakness (06/05/24) Physical Therapy Treatment Note PT-OP-A Visit Information Start: 05/07/24 11:15 Freq: Status: Active Protocol: Document 06/05/24 13:01 NM (Rec: 06/05/24 14:07 NM [id number]) Out-Patient Physical Therapy Visit Information Visit Information Visit Type Progress Note Visit Note KX after 19 visits Visit Start Time 13:05 Visit Stop Time 13:45 Visit Number 7 Evaluation Information Evaluation Date 05/07/24 Precautions Precautions PD, vitals, fall risk, memory, macular degeneration ( difficulty with central vision ) PT-OP-B Current Condition Start: 05/07/24 11:15 Freq: Status: Active Protocol: Document 05/07/24 11:17 NM (Rec: 05/07/24 12:21 NM [id number]) Current Condition History of Current Condition Onset Date 2020, chronic and ongoing Current Complaints pain, mobility, balance History of Current Condition Pt has PD, dx in 2020. Pt has difficulty with memory, tremors, bradykinesia; no medication for PD. Pt has hx of spinal surgery (2020), blood clots (on medication for this and blood pressure), macular degeneration, chronic kidney disease. Pt presents with B buttock pain, starting in 2019. He had a laminectomy, fusion of lower lumbar spine. After surgery, recovery was long and slow. Pt went from not being able to stand up straight to being able to stand up straight. This pain was present prior to surgery, but still hasn't gone away. The pain initially began on R side, but shifts back and forth. Pt gets leg cramps, varsha at night. Pt has a cane, prn uses walking sticks. Prior Treatments and Tests Previous PT following spine surgery Treatment Goals Patient/Caregiver Goals make pain go away PT-OP-C Subjective Start: 05/07/24 11:15 Freq: Status: Active Protocol: Document 06/05/24 13:01 NM (Rec: 06/05/24 14:07 NM [id number]) OP-PT Subjective Patient Comments Patient Comments Pt and present to clinic. Pt reports no back pain. states that they have been having trouble with performing exercises due to timing as 's mom just and they are dealing with all of the additional work. Report that they have had good success with hamstring stretch in supine with strap. Pt's reports that they have tried using trek poles on walk , pt using but resistant. Have not increased walking distance but states improved balance and less pain reported with trek poles. states that she knows pt's pain levels have improved since starting PT because he is not taking as much tylenol during the week PT-OP-E Functional Tests Start: 05/07/24 11:15 Freq: Status: Active Protocol: Document 05/07/24 11:17 NM (Rec: 05/07/24 12:21 NM [id number]) Functional Tests Five Times Sit to Stand Test Score 16.6 secs Comments w/o hand support Other Forward Trunk Flexion Test Name of Test 75% of ROM Comment reports minimal pain with bending PT-OP-F Manual Assessment Start: 05/07/24 11:15 Freq: Status: Active Protocol: Document 05/07/24 11:17 NM (Rec: 05/07/24 12:21 NM [id number]) Manual Assessments Soft Tissue Assessment Soft Tissue Mobility Assessment Decreased B hamstring length, tightness in hip flexors as well. Lacking R knee extension Joint Mobility Assessment Joint Mobility Assessment Hypomobility of lumbar spine and hips. Maintains B hip and knee flexion in stance, gait PT-OP-G Mobility & Gait Start: 05/07/24 11:15 Freq: Status: Active Protocol: Document 05/07/24 11:17 NM (Rec: 05/07/24 12:21 NM [id number]) OP Mobility Evaluation Bed Mobility Supine to and from Sit Low back pain reproduced with rotation during transition; close SBA OP Gait Assessment Gait Distance (Feet) 150 Factors Limiting Gait Function Factors Limiting Gait Function Decreased Strength,Difficulty Following Directions,Limited Range of Motion,Pain Comments Gait Comments Slow gait speed with forward flexed trunk, limited step length and foot clearance PT-OP-J Posture/Palpation/Skin Start: 05/07/24 11:15 Freq: Status: Active Protocol: Document 05/07/24 11:17 NM (Rec: 05/07/24 12:21 NM [id number]) Posture Evaluation Comments Posture Comments Demonstrates forward flexed trunk posture with forward head, rounded shoulders, and slight kyphosis. Demos anterior pelvic tilt Palpation Assessment Location lumbar spine Palpation Details Tenderness post sit to stand along iliac crests bilaterally , R>L, and paraspinals. No tenderness along midline buttock Palpation Details Tenderness along piriformis, SIJ, hamstrings PT-OP-K Range of Motion Start: 05/07/24 11:15 Freq: Status: Active Protocol: Document 05/07/24 11:17 NM (Rec: 05/07/24 12:21 NM [id number]) Lumbar Spine Range of Motion Lumbar Spine Active Percentage Flexion 75 Extension 50 Lateral Flexion Left 50 Lateral Flexion Right 50 Hip Goniometric Range of Motion Hip Right Flexion w/Knee Flexed 105 Internal Rotation 25 External Rotation 20 Left Flexion w/Knee Flexed 90 Internal Rotation 30 External Rotation 25 Comments IR Knee Goniometric Range of Motion Knee Right Flexion Active (degrees) 130 Extension Active (degrees) 5 Comments HS 120 deg Left Flexion Active (degrees) 130 Extension Active (degrees) 0 Comments HS 130 deg PT-OP-L Special Tests Start: 05/07/24 11:15 Freq: Status: Active Protocol: Document 05/07/24 11:17 NM (Rec: 05/07/24 12:21 NM [id number]) Special Tests Lumbar Spine Special Tests Slump Test Results - Connelly/Quadrant Test Results - PT-OP-M Strength Start: 05/07/24 11:15 Freq: Status: Active Protocol: Document 05/07/24 11:17 NM (Rec: 05/07/24 12:21 NM [id number]) Trunk Strength Trunk Manual Muscle Testing Flexion 4 Good Extension 4 Good Rotation Left 4 Good Rotation Right 4 Good Lateral Flexion Left 4 Good Lateral Flexion Right 4 Good Hip Strength Hip Manual Muscle Testing Right Flexion (L2) 4- Good- Extension (S1) 4- Good- Abduction 4- Good- Adduction 4- Good- External Rotation 4- Good- Internal Rotation 4- Good- Left Flexion (L2) 4- Good- Extension (S1) 4- Good- Abduction 4- Good- Adduction 4- Good- External Rotation 4- Good- Internal Rotation 4- Good- Knee Strength Knee Manual Muscle Testing Right Flexion (S2) 4- Good- Extension (L3) 4- Good- Left Flexion (S2) 4- Good- Extension (L3) 4- Good- Ankle/Foot Strength Ankle and Foot Manual Muscle Testing Right Dorsiflexion (L4) 4 Good Plantarflexion (S1) 4 Good Comments Measured in sitting Left Dorsiflexion (L4) 4 Good Plantarflexion (S1) 4 Good Comments Measured in sitting PT-OP-Q Treatments Start: 05/07/24 11:15 Freq: Status: Active Protocol: Document 06/05/24 13:01 NM (Rec: 06/05/24 14:07 NM [id number]) Therapeutic Exercises Supine Exercises hamstring stretch Supine Exercise Name from hooklying Resistance left and right Reps/Minutes 60 sec each LE X 2 Comments AAROM with gait belt strap; mod cues for form Standing Exercises lat pull down 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 Resistance level 2 > level 3 plates Reps/Minutes 2x10 Comments pain free; cued to squeeze fingers w/ armpits hip extension Side bilateral Resistance level 2 band at ankles Equipment Used hand support for balance Reps/Minutes 10 ea Comments max cues for form, execution; drop band level next time; no pain Palloff Standing Exercise Name press Side bilateral Resistance level 2 orange band Reps/Minutes 10 ea direction Comments mod cues for form; pain free but challenging Therapeutic Activity Therapeutic Activity sit to stand Reps/Minutes 3x5 reps, ~10 minutes Comments Moderate cues for form, anterior weight shift with both fwd reach and with self tactile cues at hips. Requires moderate cues for form and increased time. Less posterior lean with anterior weight shift via fwd reach With education and rationale using spine model, assist with explanation sidelying to sitting Reps/Minutes 1 rep Comments via L rolling per pt preference. requires mod a to rise. Verbal and visual cues. Educated on rationale and safety for low back and pain management as HEP review PT-OP-T Assessment and Plan Start: 05/07/24 11:15 Freq: Status: Active Protocol: Document 06/05/24 13:01 NM (Rec: 06/05/24 14:07 NM [id number]) Physical Therapy Assessment Goals Four Impairment gait Impairment maximal distance 1 mile w/o AD Short Term Goal (STG) If appropriate, pt will use LRAD during daily ambulation in order to demonstrate improved stability, symptom management, and increase confidence with ambulation while on hikes 06/05/24: pt using trek poles periodically for balance and symptom management on walks STG Duration 6 weeks MEt Usp Goal (LTG) Pt will report that he is able to ambulate any distance during his daily ambulation with his without pain at least 4/7 days during the week LTG Duration 10 weeks Three Impairment hamstring length Impairment R hamstring length 120 deg, L hamstring length 130 deg Fisher Seal Goal (LTG) Pt will improve B hamstring length to at least 140 deg bilaterally in order to demonstrate improved knee extension for TKE during gait and to improve BLE flexibility to offload pressure on his back 06/05/24: 148 deg L, 138 deg R LTG Duration 10 weeks Two Impairment strength Impairment 5x STS 16.6 sec Short Term Goal (STG) Pt will be able to perform at least 5/10 reps of sit to stands without UE assistance and without increase in baseline pain in order to demonstrate improved BLE strength for transfers and activity tolerance 06/05/24: 15 sit to stands without pain in back or UE assistance using fwd reaching for anterior weight shift STG Duration 5 weeks MET Fisher Seal Goal (LTG) Pt will be able to perform 5x STS test in less than 14.8 seconds (age-related norm) without UE assistance and without increase in baseline pain in order to demonstrate improved BLE strength for transfers and activity tolerance LTG Duration 10 weeks One Impairment oswestry Impairment Oswestry 16/50 Usp Goal (LTG) Pt will report Oswestry <16/50 in order to demonstrate improved symptom management, activity tolerance, and QOL LTG Duration 10 weeks Assessment Summary Assessment Pt tolerated session well, reporting no pain at start or end of session. He only has mild discomfort at B posterior hips, but denies pain. Pt has good feedback to supine hamstring stretch with strap. Demos improved hamstring length bilaterally although still limited overall. Pt requires moderate to maximal cues for all exercises, in addition to increased time. Progressed from walkout to pallof press; occasional cues for anti-rotation as pt fatigues. Trialed standing hip extension, but pt challenged by band difficulty and comprehending activity; will reassess in future for glute/ hamstring strength Physical Therapy Plan Frequency and Duration Frequency of Treatment 1-2x/wk Duration of treatment (weeks) 10 Plan of Care Start Date 05/07/24 Plan of Care End Date 07/19/24 Therapeutic Interventions Therapeutic Interventions Balance Training,Coordination Training,Gait Training,Home Exercise Program,Joint Mobilizations,Manual Therapy, Neuromuscular Re-education, Orthotic/Prosthetic Management ,Patient/Caregiver Education, Self-Care/Home Management, Sensory Integration,Soft Tissue Mobilization,Taping, Therapeutic Activities, Therapeutic Exercises Modalities Cold Pack/Ice Massage,Electric Stimulation,Hot Packs, Ultrasound Next Visit Focus/Plan Next Note Type Treatment Note Next Visit Plan Review pallof press. cont with HS stretch. Retry standing hip ext w/ level 1 band and hand support, trial side steps vs standing hip abd, leg press followed by hamstring stretch on machine, calf stretch on ALEM future: step up
--- NOTE | 2024-06-14 14:40 | PT.OTN ---
Current Diagnoses Parkinson's disease with dyskinesia, with fluctuations (06/14/24) Stiffness of right knee, not elsewhere classified (06/14/24) Dorsalgia, unspecified (06/14/24) Myalgia, other site (06/14/24) Other lack of coordination (06/14/24) Weakness (06/14/24) Physical Therapy Treatment Note PT-OP-A Visit Information Start: 05/07/24 11:15 Freq: Status: Active Protocol: Document 06/14/24 14:01 NM (Rec: 06/14/24 14:34 NM [id number]) Out-Patient Physical Therapy Visit Information Visit Information Visit Type Treatment Note Visit Note KX after 19 visits Visit Start Time 14:02 Visit Stop Time 14:30 Visit Number 8 PT-OP-B Current Condition Start: 05/07/24 11:15 Freq: Status: Active Protocol: Document 05/07/24 11:17 NM (Rec: 05/07/24 12:21 NM [id number]) Current Condition History of Current Condition Onset Date 2020, chronic and ongoing Current Complaints pain, mobility, balance History of Current Condition Pt has PD, dx in 2020. Pt has difficulty with memory, tremors, bradykinesia; no medication for PD. Pt has hx of spinal surgery (2020), blood clots (on medication for this and blood pressure), macular degeneration, chronic kidney disease. Pt presents with B buttock pain, starting in 2019. He had a laminectomy, fusion of lower lumbar spine. After surgery, recovery was long and slow. Pt went from not being able to stand up straight to being able to stand up straight. This pain was present prior to surgery, but still hasn't gone away. The pain initially began on R side, but shifts back and forth. Pt gets leg cramps, varsha at night. Pt has a cane, prn uses walking sticks. Prior Treatments and Tests Previous PT following spine surgery Treatment Goals Patient/Caregiver Goals make pain go away PT-OP-C Subjective Start: 05/07/24 11:15 Freq: Status: Active Protocol: Document 06/14/24 14:01 NM (Rec: 06/14/24 14:34 NM [id number]) OP-PT Subjective Patient Comments Patient Comments Pt late to session. reports pt tolerated last session well, reports minimal pain with ambulating since last session but only had 1 walk. Compliant with HEP varsha hamstring stretch PT-OP-E Functional Tests Start: 05/07/24 11:15 Freq: Status: Active Protocol: Document 05/07/24 11:17 NM (Rec: 05/07/24 12:21 NM [id number]) Functional Tests Five Times Sit to Stand Test Score 16.6 secs Comments w/o hand support Other Forward Trunk Flexion Test Name of Test 75% of ROM Comment reports minimal pain with bending PT-OP-F Manual Assessment Start: 05/07/24 11:15 Freq: Status: Active Protocol: Document 05/07/24 11:17 NM (Rec: 05/07/24 12:21 NM [id number]) Manual Assessments Soft Tissue Assessment Soft Tissue Mobility Assessment Decreased B hamstring length, tightness in hip flexors as well. Lacking R knee extension Joint Mobility Assessment Joint Mobility Assessment Hypomobility of lumbar spine and hips. Maintains B hip and knee flexion in stance, gait PT-OP-G Mobility & Gait Start: 05/07/24 11:15 Freq: Status: Active Protocol: Document 05/07/24 11:17 NM (Rec: 05/07/24 12:21 NM [id number]) OP Mobility Evaluation Bed Mobility Supine to and from Sit Low back pain reproduced with rotation during transition; close SBA OP Gait Assessment Gait Distance (Feet) 150 Factors Limiting Gait Function Factors Limiting Gait Function Decreased Strength,Difficulty Following Directions,Limited Range of Motion,Pain Comments Gait Comments Slow gait speed with forward flexed trunk, limited step length and foot clearance PT-OP-J Posture/Palpation/Skin Start: 05/07/24 11:15 Freq: Status: Active Protocol: Document 05/07/24 11:17 NM (Rec: 05/07/24 12:21 NM [id number]) Posture Evaluation Comments Posture Comments Demonstrates forward flexed trunk posture with forward head, rounded shoulders, and slight kyphosis. Demos anterior pelvic tilt Palpation Assessment Location lumbar spine Palpation Details Tenderness post sit to stand along iliac crests bilaterally , R>L, and paraspinals. No tenderness along midline buttock Palpation Details Tenderness along piriformis, SIJ, hamstrings PT-OP-K Range of Motion Start: 05/07/24 11:15 Freq: Status: Active Protocol: Document 05/07/24 11:17 NM (Rec: 05/07/24 12:21 NM [id number]) Lumbar Spine Range of Motion Lumbar Spine Active Percentage Flexion 75 Extension 50 Lateral Flexion Left 50 Lateral Flexion Right 50 Hip Goniometric Range of Motion Hip Right Flexion w/Knee Flexed 105 Internal Rotation 25 External Rotation 20 Left Flexion w/Knee Flexed 90 Internal Rotation 30 External Rotation 25 Comments IR Knee Goniometric Range of Motion Knee Right Flexion Active (degrees) 130 Extension Active (degrees) 5 Comments HS 120 deg Left Flexion Active (degrees) 130 Extension Active (degrees) 0 Comments HS 130 deg PT-OP-L Special Tests Start: 05/07/24 11:15 Freq: Status: Active Protocol: Document 05/07/24 11:17 NM (Rec: 05/07/24 12:21 NM [id number]) Special Tests Lumbar Spine Special Tests Slump Test Results - Connelly/Quadrant Test Results - PT-OP-M Strength Start: 05/07/24 11:15 Freq: Status: Active Protocol: Document 05/07/24 11:17 NM (Rec: 05/07/24 12:21 NM [id number]) Trunk Strength Trunk Manual Muscle Testing Flexion 4 Good Extension 4 Good Rotation Left 4 Good Rotation Right 4 Good Lateral Flexion Left 4 Good Lateral Flexion Right 4 Good Hip Strength Hip Manual Muscle Testing Right Flexion (L2) 4- Good- Extension (S1) 4- Good- Abduction 4- Good- Adduction 4- Good- External Rotation 4- Good- Internal Rotation 4- Good- Left Flexion (L2) 4- Good- Extension (S1) 4- Good- Abduction 4- Good- Adduction 4- Good- External Rotation 4- Good- Internal Rotation 4- Good- Knee Strength Knee Manual Muscle Testing Right Flexion (S2) 4- Good- Extension (L3) 4- Good- Left Flexion (S2) 4- Good- Extension (L3) 4- Good- Ankle/Foot Strength Ankle and Foot Manual Muscle Testing Right Dorsiflexion (L4) 4 Good Plantarflexion (S1) 4 Good Comments Measured in sitting Left Dorsiflexion (L4) 4 Good Plantarflexion (S1) 4 Good Comments Measured in sitting PT-OP-Q Treatments Start: 05/07/24 11:15 Freq: Status: Active Protocol: Document 06/14/24 14:01 NM (Rec: 06/14/24 14:34 NM [id number]) Gym Equipment Shuttle Recovery unilateral squat Details cued alignment, TKE w/o locking Resistance 50# (2 navy) Reps/Time 2x15 ea Therapeutic Exercises Sitting Exercises hamstring stretch Sitting Exercise Name performed on leg press between sets Side bilateral Reps/Minutes 60 Standing Exercises step up Side bilateral Equipment Used 6 step, 1 rail Reps/Minutes 15 ea Comments cued slower step down, wider GALI retro stepping Side bilateral Equipment Used CGA to steady Reps/Minutes 2x25 ft ea direction side steps Side bilateral Resistance level 2 band Equipment Used prn hand support for balance; CGA Reps/Minutes 2x15 ft Comments cued foot clearance, neutral positioning hip extension Side bilateral Resistance level 2 band at thighs Equipment Used hand support for balance Reps/Minutes 10 ea Comments max cues for form, execution; drop band level next time; no pain Other Exercises self-STM Other Exercise Name HS and calves Side bilateral Equipment Used rolling pin Reps/Minutes 2 minutes Comments verbal cues for correct execution; reports improvement w/ piriformis PT-OP-T Assessment and Plan Start: 05/07/24 11:15 Freq: Status: Active Protocol: Document 06/14/24 14:01 NM (Rec: 06/14/24 14:34 NM [id number]) Physical Therapy Assessment Goals Four Impairment gait Impairment maximal distance 1 mile w/o AD Short Term Goal (STG) If appropriate, pt will use LRAD during daily ambulation in order to demonstrate improved stability, symptom management, and increase confidence with ambulation while on hikes 06/05/24: pt using trek poles periodically for balance and symptom management on walks STG Duration 6 weeks MEt Respiratory Manager Goal (LTG) Pt will report that he is able to ambulate any distance during his daily ambulation with his without pain at least 4/7 days during the week LTG Duration 10 weeks Three Impairment hamstring length Impairment R hamstring length 120 deg, L hamstring length 130 deg Custodial Goal (LTG) Pt will improve B hamstring length to at least 140 deg bilaterally in order to demonstrate improved knee extension for TKE during gait and to improve BLE flexibility to offload pressure on his back 06/05/24: 148 deg L, 138 deg R LTG Duration 10 weeks Two Impairment strength Impairment 5x STS 16.6 sec Short Term Goal (STG) Pt will be able to perform at least 5/10 reps of sit to stands without UE assistance and without increase in baseline pain in order to demonstrate improved BLE strength for transfers and activity tolerance 06/05/24: 15 sit to stands without pain in back or UE assistance using fwd reaching for anterior weight shift STG Duration 5 weeks MET Respiratory Manager Goal (LTG) Pt will be able to perform 5x STS test in less than 14.8 seconds (age-related norm) without UE assistance and without increase in baseline pain in order to demonstrate improved BLE strength for transfers and activity tolerance LTG Duration 10 weeks One Impairment oswestry Impairment Oswestry 16/50 Respiratory Manager Goal (LTG) Pt will report Oswestry <16/50 in order to demonstrate improved symptom management, activity tolerance, and QOL LTG Duration 10 weeks Assessment Summary Assessment Pt tolerated session well. Reports no pain at end of session in hamstrings. Good quad fatigue with single leg squat on leg press. Requires moderate cues for safety and correct execution. Continued with hamstring lengthening using retro stepping and stretch while on leg press. Pt demos less step length on RLE than LLE. Good feedback for side steps and hip extension, but band regressed to thighs for better form and fewer trunk compensations. Pt requires CGA to steady and moderate cues for safety, correct execution. No pain or discomfort with step ups or with leg press. Pt demos quick speed and needs multiple cues during session for control. He would benefit from skilled PT for trunk strengthening, flexibility, and progressive BLE strengthening for improved symptom management. Physical Therapy Plan Frequency and Duration Frequency of Treatment 1-2x/wk Duration of treatment (weeks) 10 Plan of Care Start Date 05/07/24 Plan of Care End Date 07/19/24 Therapeutic Interventions Therapeutic Interventions Balance Training,Coordination Training,Gait Training,Home Exercise Program,Joint Mobilizations,Manual Therapy, Neuromuscular Re-education, Orthotic/Prosthetic Management ,Patient/Caregiver Education, Self-Care/Home Management, Sensory Integration,Soft Tissue Mobilization,Taping, Therapeutic Activities, Therapeutic Exercises Modalities Cold Pack/Ice Massage,Electric Stimulation,Hot Packs, Ultrasound Next Visit Focus/Plan Next Note Type Treatment Note Next Visit Plan Review pallof press, uni squat on leg press. side steps. step up. retro walk. carries. HS length, cont with HS stretch. Retry standing hip ext w/ level 1 band and hand support, trial side steps vs standing hip abd, leg press followed by hamstring stretch on machine, calf stretch on ALEM future: step up
--- NOTE | 2024-06-21 16:53 | PT.OTN ---
Current Diagnoses Parkinson's disease with dyskinesia, with fluctuations (06/21/24) Stiffness of right knee, not elsewhere classified (06/21/24) Dorsalgia, unspecified (06/21/24) Myalgia, other site (06/21/24) Other lack of coordination (06/21/24) Weakness (06/21/24) Physical Therapy Treatment Note PT-OP-A Visit Information Start: 05/07/24 11:15 Freq: Status: Active Protocol: Document 06/21/24 14:43 NBM (Rec: 06/21/24 15:26 NBM [id number]) Out-Patient Physical Therapy Visit Information Visit Information Visit Type Treatment Note Visit Note KX after 19 visits Spouse joins treatment towards end of session. Visit Start Time 14:41 Visit Stop Time 15:21 Visit Number 9 Number of [employer] Visits 1 Evaluation Information Evaluation Date 05/07/24 Precautions Precautions PD, vitals, fall risk, memory, macular degeneration ( difficulty with central vision ) PT-OP-B Current Condition Start: 05/07/24 11:15 Freq: Status: Active Protocol: Document 05/07/24 11:17 NM (Rec: 05/07/24 12:21 NM [id number]) Current Condition History of Current Condition Onset Date 2020, chronic and ongoing Current Complaints pain, mobility, balance History of Current Condition Pt has PD, dx in 2020. Pt has difficulty with memory, tremors, bradykinesia; no medication for PD. Pt has hx of spinal surgery (2020), blood clots (on medication for this and blood pressure), macular degeneration, chronic kidney disease. Pt presents with B buttock pain, starting in 2019. He had a laminectomy, fusion of lower lumbar spine. After surgery, recovery was long and slow. Pt went from not being able to stand up straight to being able to stand up straight. This pain was present prior to surgery, but still hasn't gone away. The pain initially began on R side, but shifts back and forth. Pt gets leg cramps, varsha at night. Pt has a cane, prn uses walking sticks. Prior Treatments and Tests Previous PT following spine surgery Treatment Goals Patient/Caregiver Goals make pain go away PT-OP-C Subjective Start: 05/07/24 11:15 Freq: Status: Active Protocol: Document 06/21/24 14:43 NBM (Rec: 06/21/24 15:26 [facility] [id number]) OP-PT Subjective Patient Comments Patient Comments Pablo reports feels fine after PT visit and doesn't feel the exercises are related to his buttock cramping pain. No pain currently, it comes and goes. Spouse usually attends which helps because his memory is shot but she's dealing with rearranging furniture at the house. Spouse arrives end of session and reports they have been sleeping in narrow room due last three days due to carpet being replaced in bedroom, having to crawl onto bed and over each other, but now fixed. 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 PT-OP-E Functional Tests Start: 05/07/24 11:15 Freq: Status: Active Protocol: Document 05/07/24 11:17 NM (Rec: 05/07/24 12:21 NM [id number]) Functional Tests Five Times Sit to Stand Test Score 16.6 secs Comments w/o hand support Other Forward Trunk Flexion Test Name of Test 75% of ROM Comment reports minimal pain with bending PT-OP-F Manual Assessment Start: 05/07/24 11:15 Freq: Status: Active Protocol: Document 05/07/24 11:17 NM (Rec: 05/07/24 12:21 NM [id number]) Manual Assessments Soft Tissue Assessment Soft Tissue Mobility Assessment Decreased B hamstring length, tightness in hip flexors as well. Lacking R knee extension Joint Mobility Assessment Joint Mobility Assessment Hypomobility of lumbar spine and hips. Maintains B hip and knee flexion in stance, gait PT-OP-G Mobility & Gait Start: 05/07/24 11:15 Freq: Status: Active Protocol: Document 05/07/24 11:17 NM (Rec: 05/07/24 12:21 NM [id number]) OP Mobility Evaluation Bed Mobility Supine to and from Sit Low back pain reproduced with rotation during transition; close SBA OP Gait Assessment Gait Distance (Feet) 150 Factors Limiting Gait Function Factors Limiting Gait Function Decreased Strength,Difficulty Following Directions,Limited Range of Motion,Pain Comments Gait Comments Slow gait speed with forward flexed trunk, limited step length and foot clearance PT-OP-J Posture/Palpation/Skin Start: 05/07/24 11:15 Freq: Status: Active Protocol: Document 05/07/24 11:17 NM (Rec: 05/07/24 12:21 NM [id number]) Posture Evaluation Comments Posture Comments Demonstrates forward flexed trunk posture with forward head, rounded shoulders, and slight kyphosis. Demos anterior pelvic tilt Palpation Assessment Location lumbar spine Palpation Details Tenderness post sit to stand along iliac crests bilaterally , R>L, and paraspinals. No tenderness along midline buttock Palpation Details Tenderness along piriformis, SIJ, hamstrings PT-OP-K Range of Motion Start: 05/07/24 11:15 Freq: Status: Active Protocol: Document 05/07/24 11:17 NM (Rec: 05/07/24 12:21 NM [id number]) Lumbar Spine Range of Motion Lumbar Spine Active Percentage Flexion 75 Extension 50 Lateral Flexion Left 50 Lateral Flexion Right 50 Hip Goniometric Range of Motion Hip Right Flexion w/Knee Flexed 105 Internal Rotation 25 External Rotation 20 Left Flexion w/Knee Flexed 90 Internal Rotation 30 External Rotation 25 Comments IR Knee Goniometric Range of Motion Knee Right Flexion Active (degrees) 130 Extension Active (degrees) 5 Comments HS 120 deg Left Flexion Active (degrees) 130 Extension Active (degrees) 0 Comments HS 130 deg PT-OP-L Special Tests Start: 05/07/24 11:15 Freq: Status: Active Protocol: Document 05/07/24 11:17 NM (Rec: 05/07/24 12:21 NM [id number]) Special Tests Lumbar Spine Special Tests Slump Test Results - Connelly/Quadrant Test Results - PT-OP-M Strength Start: 05/07/24 11:15 Freq: Status: Active Protocol: Document 05/07/24 11:17 NM (Rec: 05/07/24 12:21 NM [id number]) Trunk Strength Trunk Manual Muscle Testing Flexion 4 Good Extension 4 Good Rotation Left 4 Good Rotation Right 4 Good Lateral Flexion Left 4 Good Lateral Flexion Right 4 Good Hip Strength Hip Manual Muscle Testing Right Flexion (L2) 4- Good- Extension (S1) 4- Good- Abduction 4- Good- Adduction 4- Good- External Rotation 4- Good- Internal Rotation 4- Good- Left Flexion (L2) 4- Good- Extension (S1) 4- Good- Abduction 4- Good- Adduction 4- Good- External Rotation 4- Good- Internal Rotation 4- Good- Knee Strength Knee Manual Muscle Testing Right Flexion (S2) 4- Good- Extension (L3) 4- Good- Left Flexion (S2) 4- Good- Extension (L3) 4- Good- Ankle/Foot Strength Ankle and Foot Manual Muscle Testing Right Dorsiflexion (L4) 4 Good Plantarflexion (S1) 4 Good Comments Measured in sitting Left Dorsiflexion (L4) 4 Good Plantarflexion (S1) 4 Good Comments Measured in sitting PT-OP-Q Treatments Start: 05/07/24 11:15 Freq: Status: Active Protocol: Document 06/21/24 14:43 [facility] (Rec: 06/21/24 15:26 [facility] [id number]) Gym Equipment Shuttle Recovery bilateral squat Details w/ initial cues for LE alignment and breathwork throughout Resistance 75# (navy) Shuttle Recovery Platform Stable Reps/Time 2x10 unilateral squat Details cued alignment, TKE w/o locking, breathwork Resistance 50# (2 [employer]) Reps/Time x10 ea Therapeutic Exercises Supine Exercises hamstring stretch Supine Exercise Name from hooklying Side bilateral Resistance left and right Equipment Used on Shuttle Recovery, w/ APs Reps/Minutes 60 sec each LE X 2 Comments w/ gentle STM to HSs piriformis stretch Supine Exercise Name cues for opp knee to sangeeta w/ overpressure from [employer] Side bilateral Reps/Minutes 60 sec ea Comments cues for breath Manual Therapy Treatment Consent Patient gave verbal consent for manual Yes treatment Soft Tissue Mobilization B hamstrings/calves Body Location focus on R hamstring, TFL, ITB Mobilization Type Cross-Friction,Rolling, Strumming,Sustained Pressure Intensity/Depth Moderate Body Position Sidelying Comments Circular strokes, most tender to TFL and mid-Hamstrings. -Hooklying: STM to Jack Hamstrings during hamstring stretch: circular strokes distal to proximal. monitored for pain Self-Care/Home Management Treatment Education Patient Education Home Exercise Program Other Education Discussion w/ pt and caregiver for role of ex's in addressing pt's hip pain w/ pt expressing understanding. Edu to pt and spouse for role of deep breaths in activating parasympathetic nervous system for reducing muscle tension due to guarding, and to be mindful of breathholding. PT-OP-T Assessment and Plan Start: 05/07/24 11:15 Freq: Status: Active Protocol: Document 06/21/24 14:43 [facility] (Rec: 06/21/24 15:26 [facility] [id number]) Physical Therapy Assessment Goals Four Impairment gait Impairment maximal distance 1 mile w/o AD Short Term Goal (STG) If appropriate, pt will use LRAD during daily ambulation in order to demonstrate improved stability, symptom management, and increase confidence with ambulation while on hikes 06/05/24: pt using trek poles periodically for balance and symptom management on walks STG Duration 6 weeks MEt [employer] Goal (LTG) Pt will report that he is able to ambulate any distance during his daily ambulation with his without pain at least 4/7 days during the week LTG Duration 10 weeks Three Impairment hamstring length Impairment R hamstring length 120 deg, L hamstring length 130 deg [employer] Goal (LTG) Pt will improve B hamstring length to at least 140 deg bilaterally in order to demonstrate improved knee extension for TKE during gait and to improve BLE flexibility to offload pressure on his back 06/05/24: 148 deg L, 138 deg R LTG Duration 10 weeks Two Impairment strength Impairment 5x STS 16.6 sec Short Term Goal (STG) Pt will be able to perform at least 5/10 reps of sit to stands without UE assistance and without increase in baseline pain in order to demonstrate improved BLE strength for transfers and activity tolerance 06/05/24: 15 sit to stands without pain in back or UE assistance using fwd reaching for anterior weight shift STG Duration 5 weeks MET Assisted Goal (LTG) Pt will be able to perform 5x STS test in less than 14.8 seconds (age-related norm) without UE assistance and without increase in baseline pain in order to demonstrate improved BLE strength for transfers and activity tolerance LTG Duration 10 weeks One Impairment oswestry Impairment Oswestry 16/50 Assisted Goal (LTG) Pt will report Oswestry <16/50 in order to demonstrate improved symptom management, activity tolerance, and QOL LTG Duration 10 weeks Assessment Summary Assessment Pablo presents alone with spouse joining end of session. Treatment focus on LE strengthening, manual therapy to improve hamstring length, and education to pt and spouse . Discussion w/ pt and caregiver for role of ex's in addressing pt's hip pain w/ pt expressing improved understanding. Edu to pt and spouse for role of deep breaths in activating parasympathetic nervous system for reducing muscle tension due to guarding. STM focus to TFL and hamstrings belly due to tenderness with palpable tension, which improves after manual therapy. Physical Therapy Plan Frequency and Duration Frequency of Treatment 1-2x/wk Duration of treatment (weeks) 10 Plan of Care Start Date 05/07/24 Plan of Care End Date 07/19/24 Therapeutic Interventions Therapeutic Interventions Balance Training,Coordination Training,Gait Training,Home Exercise Program,Joint Mobilizations,Manual Therapy, Neuromuscular Re-education, Orthotic/Prosthetic Management ,Patient/Caregiver Education, Self-Care/Home Management, Sensory Integration,Soft Tissue Mobilization,Taping, Therapeutic Activities, Therapeutic Exercises Modalities Cold Pack/Ice Massage,Electric Stimulation,Hot Packs, Ultrasound Next Visit Focus/Plan Next Note Type Treatment Note Next Visit Plan Review pallof press, uni squat on leg press. side steps. step up. retro walk. carries. HS length, cont with HS stretch. Retry standing hip ext w/ level 1 band and hand support, trial side steps vs standing hip abd, leg press followed by hamstring stretch on machine, calf stretch on ALEM future: step up
--- NOTE | 2024-06-25 11:32 | PT.OTN ---
Current Diagnoses Parkinson's disease with dyskinesia, with fluctuations (06/25/24) Stiffness of right knee, not elsewhere classified (06/25/24) Dorsalgia, unspecified (06/25/24) Myalgia, other site (06/25/24) Other lack of coordination (06/25/24) Weakness (06/25/24) Physical Therapy Treatment Note PT-OP-A Visit Information Start: 05/07/24 11:15 Freq: Status: Active Protocol: Document 06/25/24 10:26 NM (Rec: 06/25/24 11:32 NM [id number]) Out-Patient Physical Therapy Visit Information Visit Information Visit Type Treatment Note Visit Note KX after 19 visits Visit Start Time 10:30 Visit Stop Time 11:13 Visit Number 10 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 Pt has difficulty with memory, tremors, bradykinesia; no medication for PD. Pt has hx of spinal surgery (2020), blood clots (on medication for this and blood pressure), macular degeneration, chronic kidney disease. Pt presents with B buttock pain, starting in 2019. He had a laminectomy, fusion of lower lumbar spine. After surgery, recovery was long and slow. Pt went from not being able to stand up straight to being able to stand up straight. This pain was present prior to surgery, but still hasn't gone away. The pain initially began on R side, but shifts back and forth. Pt gets leg cramps, varsha at night. Pt has a cane, prn uses walking sticks. Prior Treatments and Tests Previous PT following spine surgery Treatment Goals Patient/Caregiver Goals make pain go away PT-OP-C Subjective Start: 05/07/24 11:15 Freq: Status: Active Protocol: Document 06/25/24 10:26 NM (Rec: 06/25/24 11:32 NM [id number]) OP-PT Subjective Patient Comments Patient Comments Pt reports that he had a good pain after last session. Pt and report that he is having pain less frequently. Pt's reports that exercises are being neglected due to home reorganization PT-OP-E Functional Tests Start: 05/07/24 11:15 Freq: Status: Active Protocol: Document 05/07/24 11:17 NM (Rec: 05/07/24 12:21 NM [id number]) Functional Tests Five Times Sit to Stand Test Score 16.6 secs Comments w/o hand support Other Forward Trunk Flexion Test Name of Test 75% of ROM Comment reports minimal pain with bending PT-OP-F Manual Assessment Start: 05/07/24 11:15 Freq: Status: Active Protocol: Document 05/07/24 11:17 NM (Rec: 05/07/24 12:21 NM [id number]) Manual Assessments Soft Tissue Assessment Soft Tissue Mobility Assessment Decreased B hamstring length, tightness in hip flexors as well. Lacking R knee extension Joint Mobility Assessment Joint Mobility Assessment Hypomobility of lumbar spine and hips. Maintains B hip and knee flexion in stance, gait PT-OP-G Mobility & Gait Start: 05/07/24 11:15 Freq: Status: Active Protocol: Document 05/07/24 11:17 NM (Rec: 05/07/24 12:21 NM [id number]) OP Mobility Evaluation Bed Mobility Supine to and from Sit Low back pain reproduced with rotation during transition; close SBA OP Gait Assessment Gait Distance (Feet) 150 Factors Limiting Gait Function Factors Limiting Gait Function Decreased Strength,Difficulty Following Directions,Limited Range of Motion,Pain Comments Gait Comments Slow gait speed with forward flexed trunk, limited step length and foot clearance PT-OP-J Posture/Palpation/Skin Start: 05/07/24 11:15 Freq: Status: Active Protocol: Document 05/07/24 11:17 NM (Rec: 05/07/24 12:21 NM [id number]) Posture Evaluation Comments Posture Comments Demonstrates forward flexed trunk posture with forward head, rounded shoulders, and slight kyphosis. Demos anterior pelvic tilt Palpation Assessment Location lumbar spine Palpation Details Tenderness post sit to stand along iliac crests bilaterally , R>L, and paraspinals. No tenderness along midline buttock Palpation Details Tenderness along piriformis, SIJ, hamstrings PT-OP-K Range of Motion Start: 05/07/24 11:15 Freq: Status: Active Protocol: Document 05/07/24 11:17 NM (Rec: 05/07/24 12:21 NM [id number]) Lumbar Spine Range of Motion Lumbar Spine Active Percentage Flexion 75 Extension 50 Lateral Flexion Left 50 Lateral Flexion Right 50 Hip Goniometric Range of Motion Hip Right Flexion w/Knee Flexed 105 Internal Rotation 25 External Rotation 20 Left Flexion w/Knee Flexed 90 Internal Rotation 30 External Rotation 25 Comments IR Knee Goniometric Range of Motion Knee Right Flexion Active (degrees) 130 Extension Active (degrees) 5 Comments HS 120 deg Left Flexion Active (degrees) 130 Extension Active (degrees) 0 Comments HS 130 deg PT-OP-L Special Tests Start: 05/07/24 11:15 Freq: Status: Active Protocol: Document 05/07/24 11:17 NM (Rec: 05/07/24 12:21 NM [id number]) Special Tests Lumbar Spine Special Tests Slump Test Results - Connelly/Quadrant Test Results - PT-OP-M Strength Start: 05/07/24 11:15 Freq: Status: Active Protocol: Document 05/07/24 11:17 NM (Rec: 05/07/24 12:21 NM [id number]) Trunk Strength Trunk Manual Muscle Testing Flexion 4 Good Extension 4 Good Rotation Left 4 Good Rotation Right 4 Good Lateral Flexion Left 4 Good Lateral Flexion Right 4 Good Hip Strength Hip Manual Muscle Testing Right Flexion (L2) 4- Good- Extension (S1) 4- Good- Abduction 4- Good- Adduction 4- Good- External Rotation 4- Good- Internal Rotation 4- Good- Left Flexion (L2) 4- Good- Extension (S1) 4- Good- Abduction 4- Good- Adduction 4- Good- External Rotation 4- Good- Internal Rotation 4- Good- Knee Strength Knee Manual Muscle Testing Right Flexion (S2) 4- Good- Extension (L3) 4- Good- Left Flexion (S2) 4- Good- Extension (L3) 4- Good- Ankle/Foot Strength Ankle and Foot Manual Muscle Testing Right Dorsiflexion (L4) 4 Good Plantarflexion (S1) 4 Good Comments Measured in sitting Left Dorsiflexion (L4) 4 Good Plantarflexion (S1) 4 Good Comments Measured in sitting PT-OP-Q Treatments Start: 05/07/24 11:15 Freq: Status: Active Protocol: Document 06/25/24 10:26 NM (Rec: 06/25/24 11:32 NM [id number]) Therapeutic Exercises Standing Exercises deadlift Standing Exercise Name HS lengthening Side bilateral Equipment Used dowel in hand, noodle at back for neutral spine cue Reps/Minutes 10 step up Side bilateral Equipment Used 6, 1 rail Reps/Minutes 15 ea Comments reports sharp SIJ pain B, reduced w/ sitting retro stepping Side bilateral Equipment Used CGA to steady Reps/Minutes 4x25 ft ea direction Comments cued toe walk calf stretch Side bilateral Equipment Used ALEM Reps/Minutes 60 Manual Therapy Treatment Consent Patient gave verbal consent for manual Yes treatment Soft Tissue Mobilization B hamstrings/calves Body Location focus on R hamstring, TFL, ITB Mobilization Type Cross-Friction,Rolling, Strumming,Sustained Pressure Intensity/Depth Moderate Body Position Sidelying Comments Circular strokes, most tender to TFL and mid-Hamstrings. Pt states less tender this session -Hooklying: STM to Jack Hamstrings during hamstring stretch: circular strokes distal to proximal. monitored for pain Manual Techniques HS stretch Type B HS stretch Body Position Supine Reps/Duration 60 Comments small range of hip flexion, monitored for pain. Pt still more restricted on R than L PT-OP-T Assessment and Plan Start: 05/07/24 11:15 Freq: Status: Active Protocol: Document 06/25/24 10:26 NM (Rec: 06/25/24 11:32 NM [id number]) Physical Therapy Assessment Goals Four Impairment gait Impairment maximal distance 1 mile w/o AD Short Term Goal (STG) If appropriate, pt will use LRAD during daily ambulation in order to demonstrate improved stability, symptom management, and increase confidence with ambulation while on hikes 06/05/24: pt using trek poles periodically for balance and symptom management on walks STG Duration 6 weeks MEt Fdc Goal (LTG) Pt will report that he is able to ambulate any distance during his daily ambulation with his without pain at least 4/7 days during the week LTG Duration 10 weeks Three Impairment hamstring length Impairment R hamstring length 120 deg, L hamstring length 130 deg Baton Twirler Goal (LTG) Pt will improve B hamstring length to at least 140 deg bilaterally in order to demonstrate improved knee extension for TKE during gait and to improve BLE flexibility to offload pressure on his back 7/24/24: 148 deg L, 138 deg R LTG Duration 10 weeks Two Impairment strength Impairment 5x STS 16.6 sec Short Term Goal (STG) Pt will be able to perform at least 5/10 reps of sit to stands without UE assistance and without increase in baseline pain in order to demonstrate improved BLE strength for transfers and activity tolerance 06/05/24: 15 sit to stands without pain in back or UE assistance using fwd reaching for anterior weight shift STG Duration 5 weeks MET Baton Twirler Goal (LTG) Pt will be able to perform 5x STS test in less than 14.8 seconds (age-related norm) without UE assistance and without increase in baseline pain in order to demonstrate improved BLE strength for transfers and activity tolerance LTG Duration 10 weeks One Impairment oswestry Impairment Oswestry 16/50 Fdc Goal (LTG) Pt will report Oswestry <16/50 in order to demonstrate improved symptom management, activity tolerance, and QOL LTG Duration 10 weeks Assessment Summary Assessment Pt tolerated session well until step ups at end of session. Pt has sharp pain with unilateral movement, especially in RLE which is concordant with pt pain symptoms reported at initial evaluation. Pt's pain symptoms are reduced with sitting, and pt states no pain at end of session when ambulating out of clinic. Pt likely related to decreased stability at B SIJ; will address in future sessions. Pt demonstrates improved retro ambulation today for lengthening hamstrings following manual treatment to elongate. Trial small range straight leg deadlift motion to further promote hamstring length following stretch. Pt's B hamstring length not measured formally but observable improvements in gait. PT educated pt again on body mechanics with bed mobility transfer to EOB, but pt has limited carryover during sessions, even with cueing at home. Pt would benefit from skilled PT for further flexibility and stabilization of lumbopelvic region to promote improved activity tolerance and symptom management. Physical Therapy Plan Frequency and Duration Frequency of Treatment 1-2x/wk Duration of treatment (weeks) 10 Plan of Care Start Date 05/07/24 Plan of Care End Date 07/19/24 Therapeutic Interventions Therapeutic Interventions Balance Training,Coordination Training,Gait Training,Home Exercise Program,Joint Mobilizations,Manual Therapy, Neuromuscular Re-education, Orthotic/Prosthetic Management ,Patient/Caregiver Education, Self-Care/Home Management, Sensory Integration,Soft Tissue Mobilization,Taping, Therapeutic Activities, Therapeutic Exercises Modalities Cold Pack/Ice Massage,Electric Stimulation,Hot Packs, Ultrasound Next Visit Focus/Plan Next Note Type Treatment Note Next Visit Plan SIJ stabilization: trial bridge vs STS w/ ball ADD and then band ABD (make sure symmetrical) side steps. retro walk. B carries. HS length, cont with HS stretch. Retry standing hip ext w/ level 1 band and hand support, trial side steps vs standing hip abd, leg press followed by hamstring stretch on machine, calf stretch on ALEM future: step up
--- NOTE | 2024-07-02 11:05 | PT.OTN ---
Current Diagnoses Parkinson's disease with dyskinesia, with fluctuations (07/02/24) Stiffness of right knee, not elsewhere classified (07/02/24) Dorsalgia, unspecified (07/02/24) Myalgia, other site (07/02/24) Other lack of coordination (07/02/24) Weakness (07/02/24) Physical Therapy Treatment Note PT-OP-A Visit Information Start: 05/07/24 11:15 Freq: Status: Active Protocol: Document 07/02/24 09:49 NM (Rec: 07/02/24 10:31 NM [id number]) Out-Patient Physical Therapy Visit Information Visit Information Visit Type Treatment Note Visit Note KX after 19 visits Visit Start Time 09:50 Visit Stop Time 10:30 Visit Number 12 PT-OP-B Current Condition Start: 05/07/24 11:15 Freq: Status: Active Protocol: Document 05/07/24 11:17 NM (Rec: 05/07/24 12:21 NM [id number]) Current Condition History of Current Condition Onset Date 2020, chronic and ongoing Current Complaints pain, mobility, balance History of Current Condition Pt has PD, dx in 2020. Pt has difficulty with memory, tremors, bradykinesia; no medication for PD. Pt has hx of spinal surgery (2020), blood clots (on medication for this and blood pressure), macular degeneration, chronic kidney disease. Pt presents with B buttock pain, starting in 2019. He had a laminectomy, fusion of lower lumbar spine. After surgery, recovery was long and slow. Pt went from not being able to stand up straight to being able to stand up straight. This pain was present prior to surgery, but still hasn't gone away. The pain initially began on R side, but shifts back and forth. Pt gets leg cramps, varsha at night. Pt has a cane, prn uses walking sticks. Prior Treatments and Tests Previous PT following spine surgery Treatment Goals Patient/Caregiver Goals make pain go away PT-OP-C Subjective Start: 05/07/24 11:15 Freq: Status: Active Protocol: Document 07/02/24 09:49 NM (Rec: 07/02/24 10:31 NM [id number]) OP-PT Subjective Patient Comments Patient Comments Pablo reports that he still has prn buttock pain in R side. He reports with ambulation but no strain to speak of. He states compliance with HEP. Pt presents alone to session PT-OP-E Functional Tests Start: 05/07/24 11:15 Freq: Status: Active Protocol: Document 05/07/24 11:17 NM (Rec: 05/07/24 12:21 NM [id number]) Functional Tests Five Times Sit to Stand Test Score 16.6 secs Comments w/o hand support Other Forward Trunk Flexion Test Name of Test 75% of ROM Comment reports minimal pain with bending PT-OP-F Manual Assessment Start: 05/07/24 11:15 Freq: Status: Active Protocol: Document 05/07/24 11:17 NM (Rec: 05/07/24 12:21 NM [id number]) Manual Assessments Soft Tissue Assessment Soft Tissue Mobility Assessment Decreased B hamstring length, tightness in hip flexors as well. Lacking R knee extension Joint Mobility Assessment Joint Mobility Assessment Hypomobility of lumbar spine and hips. Maintains B hip and knee flexion in stance, gait PT-OP-G Mobility & Gait Start: 05/07/24 11:15 Freq: Status: Active Protocol: Document 05/07/24 11:17 NM (Rec: 05/07/24 12:21 NM [id number]) OP Mobility Evaluation Bed Mobility Supine to and from Sit Low back pain reproduced with rotation during transition; close SBA OP Gait Assessment Gait Distance (Feet) 150 Factors Limiting Gait Function Factors Limiting Gait Function Decreased Strength,Difficulty Following Directions,Limited Range of Motion,Pain Comments Gait Comments Slow gait speed with forward flexed trunk, limited step length and foot clearance PT-OP-J Posture/Palpation/Skin Start: 05/07/24 11:15 Freq: Status: Active Protocol: Document 05/07/24 11:17 NM (Rec: 05/07/24 12:21 NM [id number]) Posture Evaluation Comments Posture Comments Demonstrates forward flexed trunk posture with forward head, rounded shoulders, and slight kyphosis. Demos anterior pelvic tilt Palpation Assessment Location lumbar spine Palpation Details Tenderness post sit to stand along iliac crests bilaterally , R>L, and paraspinals. No tenderness along midline buttock Palpation Details Tenderness along piriformis, SIJ, hamstrings PT-OP-K Range of Motion Start: 05/07/24 11:15 Freq: Status: Active Protocol: Document 05/07/24 11:17 NM (Rec: 05/07/24 12:21 NM [id number]) Lumbar Spine Range of Motion Lumbar Spine Active Percentage Flexion 75 Extension 50 Lateral Flexion Left 50 Lateral Flexion Right 50 Hip Goniometric Range of Motion Hip Right Flexion w/Knee Flexed 105 Internal Rotation 25 External Rotation 20 Left Flexion w/Knee Flexed 90 Internal Rotation 30 External Rotation 25 Comments IR Knee Goniometric Range of Motion Knee Right Flexion Active (degrees) 130 Extension Active (degrees) 5 Comments HS 120 deg Left Flexion Active (degrees) 130 Extension Active (degrees) 0 Comments HS 130 deg PT-OP-L Special Tests Start: 05/07/24 11:15 Freq: Status: Active Protocol: Document 05/07/24 11:17 NM (Rec: 05/07/24 12:21 NM [id number]) Special Tests Lumbar Spine Special Tests Slump Test Results - Connelly/Quadrant Test Results - PT-OP-M Strength Start: 05/07/24 11:15 Freq: Status: Active Protocol: Document 05/07/24 11:17 NM (Rec: 05/07/24 12:21 NM [id number]) Trunk Strength Trunk Manual Muscle Testing Flexion 4 Good Extension 4 Good Rotation Left 4 Good Rotation Right 4 Good Lateral Flexion Left 4 Good Lateral Flexion Right 4 Good Hip Strength Hip Manual Muscle Testing Right Flexion (L2) 4- Good- Extension (S1) 4- Good- Abduction 4- Good- Adduction 4- Good- External Rotation 4- Good- Internal Rotation 4- Good- Left Flexion (L2) 4- Good- Extension (S1) 4- Good- Abduction 4- Good- Adduction 4- Good- External Rotation 4- Good- Internal Rotation 4- Good- Knee Strength Knee Manual Muscle Testing Right Flexion (S2) 4- Good- Extension (L3) 4- Good- Left Flexion (S2) 4- Good- Extension (L3) 4- Good- Ankle/Foot Strength Ankle and Foot Manual Muscle Testing Right Dorsiflexion (L4) 4 Good Plantarflexion (S1) 4 Good Comments Measured in sitting Left Dorsiflexion (L4) 4 Good Plantarflexion (S1) 4 Good Comments Measured in sitting PT-OP-Q Treatments Start: 05/07/24 11:15 Freq: Status: Active Protocol: Document 07/02/24 09:49 NM (Rec: 07/02/24 10:31 NM [id number]) Therapeutic Exercises Supine Exercises Bridge Supine Exercise Name 1. ball add w/ glute josef (no bridge), 2. band above knees w / bridge Side bilateral Equipment Used blue ball, lvl 1 band Reps/Minutes 1, 10x3 breaths, 2. 2x5 w/ breath cycle Comments pt has cramps, redcued w/ breathing Sidelying Exercises reverse clams Side bilateral Resistance AROM Reps/Minutes 10 ea with 1-2 sec pause Comments limited ROM, tactile cues for form clams Side bilateral Resistance level 1 band Reps/Minutes 10 ea with 1-2 sec pause at top Comments cued for breathwork, form Standing Exercises deadlift Standing Exercise Name deadlift Side bilateral Resistance level 3 band Equipment Used with hip hinge Reps/Minutes 10x2 Comments tactile and verbal cue for breath and hinge; pain free hip extension Side bilateral Resistance level 1 band at thighs > below thighs Equipment Used hand support for balance Reps/Minutes 10 ea Comments max cues for form, execution, no pain, breathowork Manual Therapy Treatment Consent Patient gave verbal consent for manual Yes treatment Soft Tissue Mobilization B hamstrings/calves Body Location R hamstring, glute, low back Mobilization Type Cross-Friction,Rolling, Strumming,Sustained Pressure Intensity/Depth Superficial Body Position Sidelying Comments Circular strokes, no tenderness today, carefully monitored during session -Hooklying: STM to Jack Hamstrings during hamstring stretch: circular strokes distal to proximal. monitored for pain PT-OP-T Assessment and Plan Start: 05/07/24 11:15 Freq: Status: Active Protocol: Document 07/02/24 09:49 NM (Rec: 07/02/24 10:31 NM [id number]) Physical Therapy Assessment Goals Four Impairment gait Impairment maximal distance 1 mile w/o AD Short Term Goal (STG) If appropriate, pt will use LRAD during daily ambulation in order to demonstrate improved stability, symptom management, and increase confidence with ambulation while on hikes 06/05/24: pt using trek poles periodically for balance and symptom management on walks STG Duration 6 weeks MEt [facility] Goal (LTG) Pt will report that he is able to ambulate any distance during his daily ambulation with his without pain at least 4/7 days during the week LTG Duration 10 weeks Three Impairment hamstring length Impairment R hamstring length 120 deg, L hamstring length 130 deg [employer] Goal (LTG) Pt will improve B hamstring length to at least 140 deg bilaterally in order to demonstrate improved knee extension for TKE during gait and to improve BLE flexibility to offload pressure on his back 06/05/24: 148 deg L, 138 deg R LTG Duration 10 weeks Two Impairment strength Impairment 5x STS 16.6 sec Short Term Goal (STG) Pt will be able to perform at least 5/10 reps of sit to stands without UE assistance and without increase in baseline pain in order to demonstrate improved BLE strength for transfers and activity tolerance 06/05/24: 15 sit to stands without pain in back or UE assistance using fwd reaching for anterior weight shift STG Duration 5 weeks MET [facility] Goal (LTG) Pt will be able to perform 5x STS test in less than 14.8 seconds (age-related norm) without UE assistance and without increase in baseline pain in order to demonstrate improved BLE strength for transfers and activity tolerance LTG Duration 10 weeks One Impairment oswestry Impairment Oswestry 16/50 [employer] Goal (LTG) Pt will report Oswestry <16/50 in order to demonstrate improved symptom management, activity tolerance, and QOL LTG Duration 10 weeks Assessment Summary Assessment Pt tolerated session well, reports no back or buttock pain with careful monitoring during session. Pt requires moderate-maximal cues during session due to difficulty with memory and cognition. Pt does have cramping with bridge but reduced with small rest break . Pt challenged with hip adduction and bridge, but good tolerance through small range for hip ABD bridge. Maximal cues for posterior pelvic tilt . Trialed resisted banded deadlift for B glute and lumbar strength, requires tactile and verbal cues for hip hinge. Pt also has tendency to favor LLE with WB. Pt has limited ROM bilaterally for hip IR during sidelying clam; however, improved form with cueing and feedback for hip ER in clam. Pt responds well to gentle manual soft tissue mobilization today; emphasis on glutes near SIJ and hamstring. Pt would benefit from skilled PT for progressive BLE and trunk strengthening, in addition to flexibility training in order to improve activity tolerance for gait and ADLs. Physical Therapy Plan Frequency and Duration Frequency of Treatment 1-2x/wk Duration of treatment (weeks) 10 Plan of Care Start Date 05/07/24 Plan of Care End Date 07/19/24 Therapeutic Interventions Therapeutic Interventions Balance Training,Coordination Training,Gait Training,Home Exercise Program,Joint Mobilizations,Manual Therapy, Neuromuscular Re-education, Orthotic/Prosthetic Management ,Patient/Caregiver Education, Self-Care/Home Management, Sensory Integration,Soft Tissue Mobilization,Taping, Therapeutic Activities, Therapeutic Exercises Modalities Cold Pack/Ice Massage,Electric Stimulation,Hot Packs, Ultrasound Next Visit Focus/Plan Next Note Type Progress Note Next Visit Plan Add clam and reverse clam with band vs seated. STS and deadlift POC: SIJ stabilization: trial bridge vs STS w/ ball ADD and then band ABD (make sure symmetrical) side steps. retro walk. B carries. HS length, cont with HS stretch. Retry standing hip ext w/ level 1 band and hand support, trial side steps vs standing hip abd, leg press followed by hamstring stretch on machine, calf stretch on ALEM
--- NOTE | 2024-07-05 15:36 | PT.OTN ---
Current Diagnoses Parkinson's disease with dyskinesia, with fluctuations (07/05/24) Stiffness of right knee, not elsewhere classified (07/05/24) Dorsalgia, unspecified (07/05/24) Myalgia, other site (07/05/24) Other lack of coordination (07/05/24) Weakness (07/05/24) Physical Therapy Treatment Note PT-OP-A Visit Information Start: 05/07/24 11:15 Freq: Status: Active Protocol: Document 07/05/24 13:46 NM (Rec: 07/05/24 14:34 NM [id number]) Out-Patient Physical Therapy Visit Information Visit Information Visit Type Progress Note Visit Note KX after 19 visits Visit Start Time 13:46 Visit Stop Time 14:30 Visit Number 13 Evaluation Information Evaluation Date 05/07/24 Precautions Precautions PD, vitals, fall risk, memory, macular degeneration ( difficulty with central vision ) PT-OP-B Current Condition Start: 05/07/24 11:15 Freq: Status: Active Protocol: Document 05/07/24 11:17 NM (Rec: 05/07/24 12:21 NM [id number]) Current Condition History of Current Condition Onset Date 2020, chronic and ongoing Current Complaints pain, mobility, balance History of Current Condition Pt has PD, dx in 2020. Pt has difficulty with memory, tremors, bradykinesia; no medication for PD. Pt has hx of spinal surgery (2020), blood clots (on medication for this and blood pressure), macular degeneration, chronic kidney disease. Pt presents with B buttock pain, starting in 2019. He had a laminectomy, fusion of lower lumbar spine. After surgery, recovery was long and slow. Pt went from not being able to stand up straight to being able to stand up straight. This pain was present prior to surgery, but still hasn't gone away. The pain initially began on R side, but shifts back and forth. Pt gets leg cramps, varsha at night. Pt has a cane, prn uses walking sticks. Prior Treatments and Tests Previous PT following spine surgery Treatment Goals Patient/Caregiver Goals make pain go away PT-OP-C Subjective Start: 05/07/24 11:15 Freq: Status: Active Protocol: Document 07/05/24 13:46 NM (Rec: 07/05/24 14:34 NM [id number]) OP-PT Subjective Patient Comments Patient Comments Pt presents to clinic with . States that overall, still improving because pt has asked for tylenol less. Has not been walking due to weather. PT-OP-E Functional Tests Start: 05/07/24 11:15 Freq: Status: Active Protocol: Document 05/07/24 11:17 NM (Rec: 05/07/24 12:21 NM [id number]) Functional Tests Five Times Sit to Stand Test Score 16.6 secs Comments w/o hand support Other Forward Trunk Flexion Test Name of Test 75% of ROM Comment reports minimal pain with bending PT-OP-F Manual Assessment Start: 05/07/24 11:15 Freq: Status: Active Protocol: Document 05/07/24 11:17 NM (Rec: 05/07/24 12:21 NM [id number]) Manual Assessments Soft Tissue Assessment Soft Tissue Mobility Assessment Decreased B hamstring length, tightness in hip flexors as well. Lacking R knee extension Joint Mobility Assessment Joint Mobility Assessment Hypomobility of lumbar spine and hips. Maintains B hip and knee flexion in stance, gait PT-OP-G Mobility & Gait Start: 05/07/24 11:15 Freq: Status: Active Protocol: Document 05/07/24 11:17 NM (Rec: 05/07/24 12:21 NM [id number]) OP Mobility Evaluation Bed Mobility Supine to and from Sit Low back pain reproduced with rotation during transition; close SBA OP Gait Assessment Gait Distance (Feet) 150 Factors Limiting Gait Function Factors Limiting Gait Function Decreased Strength,Difficulty Following Directions,Limited Range of Motion,Pain Comments Gait Comments Slow gait speed with forward flexed trunk, limited step length and foot clearance PT-OP-J Posture/Palpation/Skin Start: 05/07/24 11:15 Freq: Status: Active Protocol: Document 05/07/24 11:17 NM (Rec: 05/07/24 12:21 NM [id number]) Posture Evaluation Comments Posture Comments Demonstrates forward flexed trunk posture with forward head, rounded shoulders, and slight kyphosis. Demos anterior pelvic tilt Palpation Assessment Location lumbar spine Palpation Details Tenderness post sit to stand along iliac crests bilaterally , R>L, and paraspinals. No tenderness along midline buttock Palpation Details Tenderness along piriformis, SIJ, hamstrings PT-OP-K Range of Motion Start: 05/07/24 11:15 Freq: Status: Active Protocol: Document 07/05/24 13:46 NM (Rec: 07/05/24 14:34 NM [id number]) Knee Goniometric Range of Motion Knee Right Flexion Active (degrees) 130 Extension Active (degrees) 5 Comments HS 120 deg 07/05/24: 135 Left Flexion Active (degrees) 130 Extension Active (degrees) 0 Comments HS 130 deg 07/05/24: 140 deg PT-OP-L Special Tests Start: 05/07/24 11:15 Freq: Status: Active Protocol: Document 05/07/24 11:17 NM (Rec: 05/07/24 12:21 NM [id number]) Special Tests Lumbar Spine Special Tests Slump Test Results - Connelly/Quadrant Test Results - PT-OP-M Strength Start: 05/07/24 11:15 Freq: Status: Active Protocol: Document 07/05/24 13:46 NM (Rec: 07/05/24 14:34 NM [id number]) Hip Strength Hip Manual Muscle Testing Right Flexion (L2) 4 Good Extension (S1) 4 Good Abduction 4 Good Adduction 4 Good External Rotation 4 Good Internal Rotation 4 Good Comments IE: 4-/5 for all 07/05/24: 4/5 for all Left Flexion (L2) 4 Good Extension (S1) 4 Good Abduction 4 Good Adduction 4 Good External Rotation 4 Good Internal Rotation 4 Good Comments IE: 4-/5 for all 07/05/24: 4/5 for all PT-OP-Q Treatments Start: 05/07/24 11:15 Freq: Status: Active Protocol: Document 07/05/24 13:46 NM (Rec: 07/05/24 14:34 NM [id number]) Therapeutic Exercises Supine Exercises Bridge Supine Exercise Name hip abduction bridge Side bilateral Resistance level 2 band Reps/Minutes 15 w/ cueing for breath Sidelying Exercises reverse clams Sidelying Exercise Name HEP Side bilateral Resistance level 1 band Reps/Minutes 10 ea with 1-2 sec pause Comments improved ROM, tactile cues for form clams Sidelying Exercise Name HEP Side bilateral Resistance level 1 band Reps/Minutes 15 ea with 1-2 sec pause at top Comments cued for breathwork, form Sitting Exercises hip ADD Side right Equipment Used ball for squeeze (L assist with holding) Reps/Minutes 10x3 hold Comments PT cueing for form and breath work sit to stand Sitting Exercise Name 1. for form, 2. from standard plinth ht, 3. 5x STS Side bilateral Reps/Minutes 1. 5 w/ self tactile cues, 2. 10, 3. 13 sec Comments pt w/o pain when use hip hinge ; moderate cues Therapeutic Activity Therapeutic Activity sit to stand Reps/Minutes 5 min Comments hip hinge with anterior shift and self tactile cues. PT educating on rationale, mechanics behind hinge and positioning for STS sidelying to sitting Reps/Minutes 1 set ea direction Comments mod IND with moderate cueing PT-OP-T Assessment and Plan Start: 05/07/24 11:15 Freq: Status: Active Protocol: Document 07/05/24 13:46 NM (Rec: 07/05/24 14:34 NM [id number]) Physical Therapy Assessment Goals Four Impairment gait Impairment maximal distance 1 mile w/o AD Short Term Goal (STG) If appropriate, pt will use LRAD during daily ambulation in order to demonstrate improved stability, symptom management, and increase confidence with ambulation while on hikes 06/05/24: pt using trek poles periodically for balance and symptom management on walks STG Duration 6 weeks MEt [facility] Goal (LTG) Pt will report that he is able to ambulate any distance during his daily ambulation with his without pain at least 4/7 days during the week 07/05/24: pt and report that they have not been taking walks because too busy LTG Duration 10 weeks NOT MET Three Impairment hamstring length Impairment R hamstring length 120 deg, L hamstring length 130 deg [facility] Goal (LTG) Pt will improve B hamstring length to at least 140 deg bilaterally in order to demonstrate improved knee extension for TKE during gait and to improve BLE flexibility to offload pressure on his back 06/05/24: 148 deg L, 138 deg R 07/05/24: 135 deg R, 140 deg L LTG Duration 10 weeks PARTIALLY MET Two Impairment strength Impairment 5x STS 16.6 sec Short Term Goal (STG) Pt will be able to perform at least 5/10 reps of sit to stands without UE assistance and without increase in baseline pain in order to demonstrate improved BLE strength for transfers and activity tolerance 06/05/24: 15 sit to stands without pain in back or UE assistance using fwd reaching for anterior weight shift STG Duration 5 weeks MET [facility] Goal (LTG) Pt will be able to perform 5x STS test in less than 14.8 seconds (age-related norm) without UE assistance and without increase in baseline pain in order to demonstrate improved BLE strength for transfers and activity tolerance 07/05/24: 13.1 sec w/o pain LTG Duration 10 weeks MET One Impairment oswestry Impairment Oswestry 16/50 [facility] Goal (LTG) Pt will report Oswestry <16/50 in order to demonstrate improved symptom management, activity tolerance, and QOL 07/05/24: 12/50 LTG Duration 10 weeks MET Progress Towards Goals Progress Towards Goals Progressing Toward Goals,Slow Progress due to Activity Tolerance,Slow Progress - Other,Goals Met Assessment Summary Assessment Pt tolerated session well. Requires max cues for correct execution with bridges and to maximize ROM. Cueing for breathwork and segmental motions. Progressed resistance for both clams and reverse clams with cues for correct form, breathwork. Pt pain free for all activities. STS review for mechanics, then multiple reps for strengthening. PT educated pt on mechanics behind hip hinge at pt request and for rationale behind movement to manage pain. Demos improved STS form and speed during 5x STS. Pt would benefit from skilled PT for further symptom management and progressive flexibility/strengthening to improve functional mobility. Physical Therapy Plan Frequency and Duration Frequency of Treatment 1-2x/wk Duration of treatment (weeks) 10 Plan of Care Start Date 05/07/24 Plan of Care End Date 07/19/24 Therapeutic Interventions Therapeutic Interventions Balance Training,Coordination Training,Gait Training,Home Exercise Program,Joint Mobilizations,Manual Therapy, Neuromuscular Re-education, Orthotic/Prosthetic Management ,Patient/Caregiver Education, Self-Care/Home Management, Sensory Integration,Soft Tissue Mobilization,Taping, Therapeutic Activities, Therapeutic Exercises Modalities Cold Pack/Ice Massage,Electric Stimulation,Hot Packs, Ultrasound Next Visit Focus/Plan Next Note Type Treatment Note Next Visit Plan Review STS with hinge and add to HEP. Side steps, hip ext and abd, hip flex w/ band, leg press, HS length POC: SIJ stabilization: trial bridge vs STS w/ ball ADD and then band ABD (make sure symmetrical) side steps. retro walk. B carries. HS length, cont with HS stretch. Retry standing hip ext w/ level 1 band and hand support, trial side steps vs standing hip abd, leg press followed by hamstring stretch on machine, calf stretch on ALEM
--- NOTE | 2024-07-09 10:41 | PT.OTN ---
Current Diagnoses Parkinson's disease with dyskinesia, with fluctuations (07/09/24) Stiffness of right knee, not elsewhere classified (07/09/24) Dorsalgia, unspecified (07/09/24) Myalgia, other site (07/09/24) Other lack of coordination (07/09/24) Weakness (07/09/24) Physical Therapy Treatment Note PT-OP-A Visit Information Start: 05/07/24 11:15 Freq: Status: Active Protocol: Document 07/09/24 08:12 AB (Rec: 07/09/24 10:40 AB [id number]) Out-Patient Physical Therapy Visit Information Visit Information Visit Type Treatment Note Visit Note KX after 19 visits Visit Start Time 09:51 Visit Stop Time 10:34 Visit Number 14 Number of HYDRAULIC PLUMBER Visits 1 Evaluation Information Evaluation Date 05/07/24 Precautions Precautions PD, vitals, fall risk, memory, macular degeneration ( difficulty with central vision ) PT-OP-B Current Condition Start: 05/07/24 11:15 Freq: Status: Active Protocol: Document 05/07/24 11:17 NM (Rec: 05/07/24 12:21 NM [id number]) Current Condition History of Current Condition Onset Date 2020, chronic and ongoing Current Complaints pain, mobility, balance History of Current Condition Pt has PD, dx in 2020. Pt has difficulty with memory, tremors, bradykinesia; no medication for PD. Pt has hx of spinal surgery (2020), blood clots (on medication for this and blood pressure), macular degeneration, chronic kidney disease. Pt presents with B buttock pain, starting in 2019. He had a laminectomy, fusion of lower lumbar spine. After surgery, recovery was long and slow. Pt went from not being able to stand up straight to being able to stand up straight. This pain was present prior to surgery, but still hasn't gone away. The pain initially began on R side, but shifts back and forth. Pt gets leg cramps, varsha at night. Pt has a cane, prn uses walking sticks. Prior Treatments and Tests Previous PT following spine surgery Treatment Goals Patient/Caregiver Goals make pain go away PT-OP-C Subjective Start: 05/07/24 11:15 Freq: Status: Active Protocol: Document 07/09/24 08:12 AB (Rec: 07/09/24 10:40 AB [id number]) OP-PT Subjective Patient Comments Patient Comments Pablo reports having no pain start of session, gestures to right hip commenting with the some exercises it starts here. SLS left LE 1-2 sec right LE 3 sec without UE use start of session. PT-OP-E Functional Tests Start: 05/07/24 11:15 Freq: Status: Active Protocol: Document 05/07/24 11:17 NM (Rec: 05/07/24 12:21 NM [id number]) Functional Tests Five Times Sit to Stand Test Score 16.6 secs Comments w/o hand support Other Forward Trunk Flexion Test Name of Test 75% of ROM Comment reports minimal pain with bending PT-OP-F Manual Assessment Start: 05/07/24 11:15 Freq: Status: Active Protocol: Document 05/07/24 11:17 NM (Rec: 05/07/24 12:21 NM [id number]) Manual Assessments Soft Tissue Assessment Soft Tissue Mobility Assessment Decreased B hamstring length, tightness in hip flexors as well. Lacking R knee extension Joint Mobility Assessment Joint Mobility Assessment Hypomobility of lumbar spine and hips. Maintains B hip and knee flexion in stance, gait PT-OP-G Mobility & Gait Start: 05/07/24 11:15 Freq: Status: Active Protocol: Document 05/07/24 11:17 NM (Rec: 05/07/24 12:21 NM [id number]) OP Mobility Evaluation Bed Mobility Supine to and from Sit Low back pain reproduced with rotation during transition; close SBA OP Gait Assessment Gait Distance (Feet) 150 Factors Limiting Gait Function Factors Limiting Gait Function Decreased Strength,Difficulty Following Directions,Limited Range of Motion,Pain Comments Gait Comments Slow gait speed with forward flexed trunk, limited step length and foot clearance PT-OP-J Posture/Palpation/Skin Start: 05/07/24 11:15 Freq: Status: Active Protocol: Document 05/07/24 11:17 NM (Rec: 05/07/24 12:21 NM [id number]) Posture Evaluation Comments Posture Comments Demonstrates forward flexed trunk posture with forward head, rounded shoulders, and slight kyphosis. Demos anterior pelvic tilt Palpation Assessment Location lumbar spine Palpation Details Tenderness post sit to stand along iliac crests bilaterally , R>L, and paraspinals. No tenderness along midline buttock Palpation Details Tenderness along piriformis, SIJ, hamstrings PT-OP-K Range of Motion Start: 05/07/24 11:15 Freq: Status: Active Protocol: Document 07/05/24 13:46 NM (Rec: 07/05/24 14:34 NM [id number]) Knee Goniometric Range of Motion Knee Right Flexion Active (degrees) 130 Extension Active (degrees) 5 Comments HS 120 deg 07/05/24: 135 Left Flexion Active (degrees) 130 Extension Active (degrees) 0 Comments HS 130 deg 07/05/24: 140 deg PT-OP-L Special Tests Start: 05/07/24 11:15 Freq: Status: Active Protocol: Document 05/07/24 11:17 NM (Rec: 05/07/24 12:21 NM [id number]) Special Tests Lumbar Spine Special Tests Slump Test Results - Connelly/Quadrant Test Results - PT-OP-M Strength Start: 05/07/24 11:15 Freq: Status: Active Protocol: Document 07/05/24 13:46 NM (Rec: 07/05/24 14:34 NM [id number]) Hip Strength Hip Manual Muscle Testing Right Flexion (L2) 4 Good Extension (S1) 4 Good Abduction 4 Good Adduction 4 Good External Rotation 4 Good Internal Rotation 4 Good Comments IE: 4-/5 for all 07/05/24: 4/5 for all Left Flexion (L2) 4 Good Extension (S1) 4 Good Abduction 4 Good Adduction 4 Good External Rotation 4 Good Internal Rotation 4 Good Comments IE: 4-/5 for all 07/05/24: 4/5 for all PT-OP-Q Treatments Start: 05/07/24 11:15 Freq: Status: Active Protocol: Document 07/09/24 08:12 AB (Rec: 07/09/24 10:40 AB [id number]) Gym Equipment Shuttle Recovery bilateral squat Details monitored for pain and difficulty Resistance 75# ([employer]y) then 87 # Shuttle Recovery Platform Stable Reps/Time x10 each weight unilateral squat Resistance 50# (2 navy) Shuttle Recovery Platform Stable Reps/Time x10 ea Therapeutic Exercises Supine Exercises hamstring stretch Supine Exercise Name from hooklying Side bilateral Resistance left and right Equipment Used on Shuttle Recovery, w/ APs Reps/Minutes 60 sec each LE X 1 Sitting Exercises seated hip abd with band Sitting Exercise Name one min hold one time once a day to HEP Side bilateral Resistance level 3 band Reps/Minutes one minute hold X 2 then X 10 without hold Comments second one minute hold performed with spouse present Standing Exercises side steps Standing Exercise Name side steps Side bilateral Resistance level 3 band Equipment Used prn hand support for balance; CGA Reps/Minutes 10 feet left and right X 3 Comments Verbal cues for mini squat hip extension Side bilateral Resistance level 3 band at thighs Equipment Used hand support for balance Reps/Minutes 10 ea and X 14 Comments with UE support calf stretch Side bilateral Equipment Used ALEM Reps/Minutes 60 X 2 each soleus and gastroc Comments verbal cues Therapeutic Activity Therapeutic Activity sit to stand Name with band and without band Reps/Minutes X10 with band X 5 without band Comments Verbal and visual cues for hip hinge, patient ed use of self tactile cues for hip hinge5 PT-OP-T Assessment and Plan Start: 05/07/24 11:15 Freq: Status: Active Protocol: Document 07/09/24 08:12 AB (Rec: 07/09/24 10:40 AB [id number]) Physical Therapy Assessment Other Concerns Barriers to Rehabilitation Pt has difficulty with memory, understanding and executing instructions. Due to Parkinson 's disease and regular sedentary lifestyle, pt already has rigidity and limited hamstring length with possible contractures. His buttock/back pain is chronic, occuring prior to his back surgery and has not improved since his surgery several years ago. PMH includes blood clots, chronic kidney disease, blood pressure changes, headaches, macular degeneration, previous spinal surgery. Currently getting concurrent care for macular degeneration. Goals Four Impairment gait Impairment maximal distance 1 mile w/o AD Short Term Goal (STG) If appropriate, pt will use LRAD during daily ambulation in order to demonstrate improved stability, symptom management, and increase confidence with ambulation while on hikes 06/05/24: pt using trek poles periodically for balance and symptom management on walks STG Duration 6 weeks MEt Alf Goal (LTG) Pt will report that he is able to ambulate any distance during his daily ambulation with his without pain at least 4/7 days during the week 07/05/24: pt and report that they have not been taking walks because too busy LTG Duration 10 weeks NOT MET Three Impairment hamstring length Impairment R hamstring length 120 deg, L hamstring length 130 deg Alf Goal (LTG) Pt will improve B hamstring length to at least 140 deg bilaterally in order to demonstrate improved knee extension for TKE during gait and to improve BLE flexibility to offload pressure on his back 06/05/24: 148 deg L, 138 deg R 07/05/24: 135 deg R, 140 deg L LTG Duration 10 weeks PARTIALLY MET Two Impairment strength Impairment 5x STS 16.6 sec Short Term Goal (STG) Pt will be able to perform at least 5/10 reps of sit to stands without UE assistance and without increase in baseline pain in order to demonstrate improved BLE strength for transfers and activity tolerance 06/05/24: 15 sit to stands without pain in back or UE assistance using fwd reaching for anterior weight shift STG Duration 5 weeks MET Glassware Maker Goal (LTG) Pt will be able to perform 5x STS test in less than 14.8 seconds (age-related norm) without UE assistance and without increase in baseline pain in order to demonstrate improved BLE strength for transfers and activity tolerance 07/05/24: 13.1 sec w/o pain LTG Duration 10 weeks MET One Impairment oswestry Impairment Oswestry 16/50 Glassware Maker Goal (LTG) Pt will report Oswestry <16/50 in order to demonstrate improved symptom management, activity tolerance, and QOL 07/05/24: 12/50 LTG Duration 10 weeks MET Assessment Summary Assessment Increased effort to perform task with sit to stand, not added to HEP this session. SLS increased significantly post glute med activation left and right LE (seated hip abduction with band one min) Pablo reports having no pain end of session. Physical Therapy Plan Frequency and Duration Frequency of Treatment 1-2x/wk Duration of treatment (weeks) 10 Plan of Care Start Date 05/07/24 Plan of Care End Date 07/19/24 Next Visit Focus/Plan Next Note Type Treatment Note Next Visit Plan Review STS with hinge and add to HEP. Side steps level 3 band review, hip ext level 3 band review and abd, hip flex w/ band, leg press, HS length POC: SIJ stabilization: trial bridge vs STS w/ ball ADD and then band ABD (make sure symmetrical) side steps. retro walk. B carries. HS length, cont with HS stretch. Retry standing hip ext w/ level 1 band and hand support, trial side steps vs standing hip abd, leg press followed by hamstring stretch on machine, continue calf stretch on ALEM
--- NOTE | 2024-07-16 12:49 | PT.OTN ---
Current Diagnoses Parkinson's disease with dyskinesia, with fluctuations (07/16/24) Stiffness of right knee, not elsewhere classified (07/16/24) Dorsalgia, unspecified (07/16/24) Myalgia, other site (07/16/24) Other lack of coordination (07/16/24) Weakness (07/16/24) Physical Therapy Treatment Note PT-OP-A Visit Information Start: 05/07/24 11:15 Freq: Status: Active Protocol: Document 07/16/24 11:14 NBM (Rec: 07/16/24 12:49 [facility] [id number]) Out-Patient Physical Therapy Visit Information Visit Information Visit Type Treatment Note Visit Note KX after 19 visits Visit Start Time 11:20 Visit Stop Time 12:00 Visit Number 16 Number of CARDIOLOGY ASSOCIATE Visits 2 Evaluation Information Evaluation Date 05/07/24 PT-OP-B Current Condition Start: 05/07/24 11:15 Freq: Status: Active Protocol: Document 05/07/24 11:17 NM (Rec: 05/07/24 12:21 NM [id number]) Current Condition History of Current Condition Onset Date 2020, chronic and ongoing Current Complaints pain, mobility, balance History of Current Condition Pt has PD, dx in 2020. Pt has difficulty with memory, tremors, bradykinesia; no medication for PD. Pt has hx of spinal surgery (2020), blood clots (on medication for this and blood pressure), macular degeneration, chronic kidney disease. Pt presents with B buttock pain, starting in 2019. He had a laminectomy, fusion of lower lumbar spine. After surgery, recovery was long and slow. Pt went from not being able to stand up straight to being able to stand up straight. This pain was present prior to surgery, but still hasn't gone away. The pain initially began on R side, but shifts back and forth. Pt gets leg cramps, varsha at night. Pt has a cane, prn uses walking sticks. Prior Treatments and Tests Previous PT following spine surgery Treatment Goals Patient/Caregiver Goals make pain go away PT-OP-C Subjective Start: 05/07/24 11:15 Freq: Status: Active Protocol: Document 07/16/24 11:14 NBM (Rec: 07/16/24 12:49 [facility] [id number]) OP-PT Subjective Patient Comments Patient Comments Pablo reports spouse is in PT so not present. He was sore for a day after last PT session in usual spot on bottom. PT-OP-E Functional Tests Start: 05/07/24 11:15 Freq: Status: Active Protocol: Document 05/07/24 11:17 NM (Rec: 05/07/24 12:21 NM [id number]) Functional Tests Five Times Sit to Stand Test Score 16.6 secs Comments w/o hand support Other Forward Trunk Flexion Test Name of Test 75% of ROM Comment reports minimal pain with bending PT-OP-F Manual Assessment Start: 05/07/24 11:15 Freq: Status: Active Protocol: Document 05/07/24 11:17 NM (Rec: 05/07/24 12:21 NM [id number]) Manual Assessments Soft Tissue Assessment Soft Tissue Mobility Assessment Decreased B hamstring length, tightness in hip flexors as well. Lacking R knee extension Joint Mobility Assessment Joint Mobility Assessment Hypomobility of lumbar spine and hips. Maintains B hip and knee flexion in stance, gait PT-OP-G Mobility & Gait Start: 05/07/24 11:15 Freq: Status: Active Protocol: Document 05/07/24 11:17 NM (Rec: 05/07/24 12:21 NM [id number]) OP Mobility Evaluation Bed Mobility Supine to and from Sit Low back pain reproduced with rotation during transition; close SBA OP Gait Assessment Gait Distance (Feet) 150 Factors Limiting Gait Function Factors Limiting Gait Function Decreased Strength,Difficulty Following Directions,Limited Range of Motion,Pain Comments Gait Comments Slow gait speed with forward flexed trunk, limited step length and foot clearance PT-OP-J Posture/Palpation/Skin Start: 05/07/24 11:15 Freq: Status: Active Protocol: Document 05/07/24 11:17 NM (Rec: 05/07/24 12:21 NM [id number]) Posture Evaluation Comments Posture Comments Demonstrates forward flexed trunk posture with forward head, rounded shoulders, and slight kyphosis. Demos anterior pelvic tilt Palpation Assessment Location lumbar spine Palpation Details Tenderness post sit to stand along iliac crests bilaterally , R>L, and paraspinals. No tenderness along midline buttock Palpation Details Tenderness along piriformis, SIJ, hamstrings PT-OP-K Range of Motion Start: 05/07/24 11:15 Freq: Status: Active Protocol: Document 07/05/24 13:46 NM (Rec: 07/05/24 14:34 NM [id number]) Knee Goniometric Range of Motion Knee Right Flexion Active (degrees) 130 Extension Active (degrees) 5 Comments HS 120 deg 07/05/24: 135 Left Flexion Active (degrees) 130 Extension Active (degrees) 0 Comments HS 130 deg 07/05/24: 140 deg PT-OP-L Special Tests Start: 05/07/24 11:15 Freq: Status: Active Protocol: Document 05/07/24 11:17 NM (Rec: 05/07/24 12:21 NM [id number]) Special Tests Lumbar Spine Special Tests Slump Test Results - Connelly/Quadrant Test Results - PT-OP-M Strength Start: 05/07/24 11:15 Freq: Status: Active Protocol: Document 07/05/24 13:46 NM (Rec: 07/05/24 14:34 NM [id number]) Hip Strength Hip Manual Muscle Testing Right Flexion (L2) 4 Good Extension (S1) 4 Good Abduction 4 Good Adduction 4 Good External Rotation 4 Good Internal Rotation 4 Good Comments IE: 4-/5 for all 07/05/24: 4/5 for all Left Flexion (L2) 4 Good Extension (S1) 4 Good Abduction 4 Good Adduction 4 Good External Rotation 4 Good Internal Rotation 4 Good Comments IE: 4-/5 for all 07/05/24: 4/5 for all PT-OP-Q Treatments Start: 05/07/24 11:15 Freq: Status: Active Protocol: Document 07/16/24 11:14 NBM (Rec: 07/16/24 12:49 NBM [id number]) Therapeutic Exercises Sitting Exercises hip ADD Side bilateral Equipment Used ball for squeeze Reps/Minutes 10x3 hold Comments PT cueing for breath hamstring stretch Sitting Exercise Name seated hamstring stretch Side bilateral Equipment Used standard mesh chair Reps/Minutes 60 ea Standing Exercises deadlift Standing Exercise Name deadlift Side bilateral Resistance level 3 band Equipment Used with hip hinge Reps/Minutes 10x Comments tactile and verbal cue for breath and hinge; pain free side steps Standing Exercise Name side steps Side bilateral Resistance level 3 band at thighs Equipment Used prn hand support for balance; CGA Reps/Minutes 10 feet X3 ea Comments Verbal cues for mini squat calf stretch Side bilateral Equipment Used ALEM Reps/Minutes 60 X 2 Comments verbal cues for pain-free range Therapeutic Activity Therapeutic Activity sit to stand Name with band Reps/Minutes X12 with Lvl 1 band Comments Verbal and visual cues for hip hinge, ant weightshift improves with forward reach. Cues for LE alignment instead of excessive knee valgus kailey. Manual Therapy Treatment Consent Patient gave verbal consent for manual Yes treatment Soft Tissue Mobilization B hamstrings/calves Body Location R hamstring, TFL, ITB, low back, R>L glute Mobilization Type Cross-Friction,Rolling, Strumming,Sustained Pressure Intensity/Depth Moderate Body Position Sidelying Comments -Tenderness to palpation greatest in TFL and piriformis . -Hamstring and ITB: circular strokes distal to proximal. monitored for pain PT-OP-T Assessment and Plan Start: 05/07/24 11:15 Freq: Status: Active Protocol: Document 07/16/24 11:14 NB (Rec: 07/16/24 12:49 [facility] [id number]) Physical Therapy Assessment Goals Four Impairment gait Impairment maximal distance 1 mile w/o AD Short Term Goal (STG) If appropriate, pt will use LRAD during daily ambulation in order to demonstrate improved stability, symptom management, and increase confidence with ambulation while on hikes 06/05/24: pt using trek poles periodically for balance and symptom management on walks STG Duration 6 weeks MEt Assisted Goal (LTG) Pt will report that he is able to ambulate any distance during his daily ambulation with his without pain at least 4/7 days during the week 07/05/24: pt and report that they have not been taking walks because too busy LTG Duration 10 weeks NOT MET Three Impairment hamstring length Impairment R hamstring length 120 deg, L hamstring length 130 deg Assisted Goal (LTG) Pt will improve B hamstring length to at least 140 deg bilaterally in order to demonstrate improved knee extension for TKE during gait and to improve BLE flexibility to offload pressure on his back 06/05/24: 148 deg L, 138 deg R 07/05/24: 135 deg R, 140 deg L LTG Duration 10 weeks PARTIALLY MET Two Impairment strength Impairment 5x STS 16.6 sec Short Term Goal (STG) Pt will be able to perform at least 5/10 reps of sit to stands without UE assistance and without increase in baseline pain in order to demonstrate improved BLE strength for transfers and activity tolerance 06/05/24: 15 sit to stands without pain in back or UE assistance using fwd reaching for anterior weight shift STG Duration 5 weeks MET Assisted Goal (LTG) Pt will be able to perform 5x STS test in less than 14.8 seconds (age-related norm) without UE assistance and without increase in baseline pain in order to demonstrate improved BLE strength for transfers and activity tolerance 07/05/24: 13.1 sec w/o pain LTG Duration 10 weeks MET One Impairment oswestry Impairment Oswestry 16/50 [employer] Application Developer Goal (LTG) Pt will report Oswestry <16/50 in order to demonstrate improved symptom management, activity tolerance, and QOL 07/05/24: 12/50 LTG Duration 10 weeks MET Assessment Summary Assessment Pablo presents alone today due to spouse attending other appointment. He requires parts practice instruction today throughout treatment session including exercises from HEP. He requires significant cueing with resisted hip extension and sidesteps for form, dorsiflexion, and upright posture and is initially challenged until visually cued ; he is equally challenged with ball squeeze with breath. Pablo requires cues for eccentric control w/ sit to stand and is inconsistent with hip hinge, lower extremity alignment and anterior weight shift unless visually cued w/ demo each rep. Pain during resisted deadlift improves with cueing for hip hinge and straight spine. He is able to demo seated hamstring stretch after initial cueing for setup . He uses log roll method for sitting edge of bed to supine without cueing which demonstrates improvement. Palpable tension in R TFL improves w/ manual therapy. Physical Therapy Plan Frequency and Duration Frequency of Treatment 1-2x/wk Duration of treatment (weeks) 10 Plan of Care Start Date 05/07/24 Plan of Care End Date 07/19/24 Therapeutic Interventions Therapeutic Interventions Balance Training,Coordination Training,Gait Training,Home Exercise Program,Joint Mobilizations,Manual Therapy, Neuromuscular Re-education, Orthotic/Prosthetic Management ,Patient/Caregiver Education, Self-Care/Home Management, Sensory Integration,Soft Tissue Mobilization,Taping, Therapeutic Activities, Therapeutic Exercises Modalities Cold Pack/Ice Massage,Electric Stimulation,Hot Packs, Ultrasound Next Visit Focus/Plan Next Note Type Treatment Note Next Visit Plan Review STS with hinge and add to HEP. Side steps level 3 band review, hip ext level 3 band review and abd, hip flex w/ band, leg press, HS length POC: SIJ stabilization: trial bridge vs STS w/ ball ADD and then band ABD (make sure symmetrical) side steps. retro walk. B carries. HS length, cont with HS stretch. Retry standing hip ext w/ level 1 band and hand support, trial side steps vs standing hip abd, leg press followed by hamstring stretch on machine, continue calf stretch on ALEM
--- NOTE | 2024-07-19 15:49 | PT.OTN ---
Current Diagnoses Parkinson's disease with dyskinesia, with fluctuations (07/19/24) Stiffness of right knee, not elsewhere classified (07/19/24) Dorsalgia, unspecified (07/19/24) Myalgia, other site (07/19/24) Other lack of coordination (07/19/24) Weakness (07/19/24) Physical Therapy Treatment Note PT-OP-A Visit Information Start: 05/07/24 11:15 Freq: Status: Active Protocol: Document 07/19/24 13:44 NM (Rec: 07/19/24 14:33 NM [id number]) Out-Patient Physical Therapy Visit Information Visit Information Visit Type Discharge Summary Visit Note KX after 19 visits Visit Start Time 13:46 Visit Stop Time 14:30 Visit Number 17 Precautions Precautions PD, vitals, fall risk, memory, macular degeneration ( difficulty with central vision ) PT-OP-B Current Condition Start: 05/07/24 11:15 Freq: Status: Active Protocol: Document 05/07/24 11:17 NM (Rec: 05/07/24 12:21 NM [id number]) Current Condition History of Current Condition Onset Date 2020, chronic and ongoing Current Complaints pain, mobility, balance History of Current Condition Pt has PD, dx in 2020. Pt has difficulty with memory, tremors, bradykinesia; no medication for PD. Pt has hx of spinal surgery (2020), blood clots (on medication for this and blood pressure), macular degeneration, chronic kidney disease. Pt presents with B buttock pain, starting in 2019. He had a laminectomy, fusion of lower lumbar spine. After surgery, recovery was long and slow. Pt went from not being able to stand up straight to being able to stand up straight. This pain was present prior to surgery, but still hasn't gone away. The pain initially began on R side, but shifts back and forth. Pt gets leg cramps, varsha at night. Pt has a cane, prn uses walking sticks. Prior Treatments and Tests Previous PT following spine surgery Treatment Goals Patient/Caregiver Goals make pain go away PT-OP-C Subjective Start: 05/07/24 11:15 Freq: Status: Active Protocol: Document 07/19/24 13:44 NM (Rec: 07/19/24 14:33 NM [id number]) OP-PT Subjective Patient Comments Patient Comments Pt reports pain is still present but less frequent. Exercises are going ok. Pt and state that walking is improved but they haven't gone on as long of walks as previous due to busy schedule. Dr. Thompson sent a referral for OT. Pt and agree to discharge today as at end of plan of care and made maximal progression with PT PT-OP-E Functional Tests Start: 05/07/24 11:15 Freq: Status: Active Protocol: Document 05/07/24 11:17 NM (Rec: 05/07/24 12:21 NM [id number]) Functional Tests Five Times Sit to Stand Test Score 16.6 secs Comments w/o hand support Other Forward Trunk Flexion Test Name of Test 75% of ROM Comment reports minimal pain with bending PT-OP-F Manual Assessment Start: 05/07/24 11:15 Freq: Status: Active Protocol: Document 05/07/24 11:17 NM (Rec: 05/07/24 12:21 NM [id number]) Manual Assessments Soft Tissue Assessment Soft Tissue Mobility Assessment Decreased B hamstring length, tightness in hip flexors as well. Lacking R knee extension Joint Mobility Assessment Joint Mobility Assessment Hypomobility of lumbar spine and hips. Maintains B hip and knee flexion in stance, gait PT-OP-G Mobility & Gait Start: 05/07/24 11:15 Freq: Status: Active Protocol: Document 05/07/24 11:17 NM (Rec: 05/07/24 12:21 NM [id number]) OP Mobility Evaluation Bed Mobility Supine to and from Sit Low back pain reproduced with rotation during transition; close SBA OP Gait Assessment Gait Distance (Feet) 150 Factors Limiting Gait Function Factors Limiting Gait Function Decreased Strength,Difficulty Following Directions,Limited Range of Motion,Pain Comments Gait Comments Slow gait speed with forward flexed trunk, limited step length and foot clearance PT-OP-J Posture/Palpation/Skin Start: 05/07/24 11:15 Freq: Status: Active Protocol: Document 05/07/24 11:17 NM (Rec: 05/07/24 12:21 NM [id number]) Posture Evaluation Comments Posture Comments Demonstrates forward flexed trunk posture with forward head, rounded shoulders, and slight kyphosis. Demos anterior pelvic tilt Palpation Assessment Location lumbar spine Palpation Details Tenderness post sit to stand along iliac crests bilaterally , R>L, and paraspinals. No tenderness along midline buttock Palpation Details Tenderness along piriformis, SIJ, hamstrings PT-OP-K Range of Motion Start: 05/07/24 11:15 Freq: Status: Active Protocol: Document 07/19/24 13:44 NM (Rec: 07/19/24 14:33 NM [id number]) Lumbar Spine Range of Motion Lumbar Spine Active Percentage Flexion 75 Extension 50 Lateral Flexion Left 50 Lateral Flexion Right 50 Hip Goniometric Range of Motion Hip Right Flexion w/Knee Flexed 105 Internal Rotation 25 External Rotation 20 Left Flexion w/Knee Flexed 90 Internal Rotation 30 External Rotation 25 Comments IR Knee Goniometric Range of Motion Knee Right Flexion Active (degrees) 130 Extension Active (degrees) 5 Comments HS 120 deg 07/05/24: 135 07/19/24 HS length: 125 Left Flexion Active (degrees) 130 Extension Active (degrees) 0 Comments HS 130 deg 07/05/24: 140 deg 07/19/24: 135 deg PT-OP-L Special Tests Start: 05/07/24 11:15 Freq: Status: Active Protocol: Document 05/07/24 11:17 NM (Rec: 05/07/24 12:21 NM [id number]) Special Tests Lumbar Spine Special Tests Slump Test Results - Connelly/Quadrant Test Results - PT-OP-M Strength Start: 05/07/24 11:15 Freq: Status: Active Protocol: Document 07/19/24 13:44 NM (Rec: 07/19/24 14:33 NM [id number]) Trunk Strength Trunk Manual Muscle Testing Flexion 4 Good Extension 4 Good Rotation Left 4 Good Rotation Right 4 Good Lateral Flexion Left 4 Good Lateral Flexion Right 4 Good Hip Strength Hip Manual Muscle Testing Right Flexion (L2) 4 Good Extension (S1) 4 Good Abduction 4 Good Adduction 4 Good External Rotation 4 Good Internal Rotation 4 Good Comments IE: 4-/5 for all 07/05/24: 4/5 for all Left Flexion (L2) 4 Good Extension (S1) 4 Good Abduction 4 Good Adduction 4 Good External Rotation 4 Good Internal Rotation 4 Good Comments IE: 4-/5 for all 07/05/24: 4/5 for all 07/19/24: 4/5 PT-OP-Q Treatments Start: 05/07/24 11:15 Freq: Status: Active Protocol: Document 07/19/24 13:44 NM (Rec: 07/19/24 14:33 NM [id number]) Therapeutic Exercises Supine Exercises bent knee fall out Side bilateral Reps/Minutes 10 ea Comments verbal and tactile cues for bracing as LE moves out to the side hamstring stretch Supine Exercise Name from hooklying Side bilateral Resistance left and right Equipment Used with strap Reps/Minutes 60 sec each LE X 1 Comments cueing for breath work passive HS stretch Supine Exercise Name relax and let knees fall to table Side bilateral Reps/Minutes 2 minutes ea Comments following manual tx; improved ROM following tx LTR Supine Exercise Name hooklying Side bilateral Reps/Minutes 2 minutes Comments increased ROM today, pain free ; PT hand cues Sidelying Exercises reverse clams Sidelying Exercise Name moved to seated Side bilateral Resistance level 2 band Reps/Minutes 5 ea with 1-2 sec pause Comments hard to coordinate; tactile cues for form clams Sidelying Exercise Name HEP Side bilateral Resistance level 1 band Reps/Minutes 2x10 ea with 1-2 sec pause at top Comments cued for breathwork, form Sitting Exercises hip IR Sitting Exercise Name better form than sidelying Side bilateral Resistance level 2 band Equipment Used pillow between legs Reps/Minutes 2x10 Comments pain free sit to stand Sitting Exercise Name from standard ht plinth Side bilateral Resistance level 2 band Equipment Used hands in front for ant cue Reps/Minutes 2x10 Comments pt w/o pain when use hip hinge ; moderate cues Self-Care/Home Management Treatment Education Other Education 4 minutes- HEP divided into bed activities to perform in AM prior to getting up, then maintenance HEP to perform throughout the day, 3x/wk PT-OP-T Assessment and Plan Start: 05/07/24 11:15 Freq: Status: Active Protocol: Document 07/19/24 13:44 NM (Rec: 07/19/24 14:33 NM [id number]) Physical Therapy Assessment Goals Four Impairment gait Impairment maximal distance 1 mile w/o AD Short Term Goal (STG) If appropriate, pt will use LRAD during daily ambulation in order to demonstrate improved stability, symptom management, and increase confidence with ambulation while on hikes 06/05/24: pt using trek poles periodically for balance and symptom management on walks STG Duration 6 weeks MEt Care Home Goal (LTG) Pt will report that he is able to ambulate any distance during his daily ambulation with his without pain at least 4/7 days during the week 07/05/24: pt and report that they have not been taking walks because too busy 07/19/24: pt and have been taking shorter walks without any reports of low back pain in pt; however, have not completed any longer walks similar to performing prior to initial evaluation LTG Duration 10 weeks PARTIALLY MET Three Impairment hamstring length Impairment R hamstring length 120 deg, L hamstring length 130 deg [employer] Goal (LTG) Pt will improve B hamstring length to at least 140 deg bilaterally in order to demonstrate improved knee extension for TKE during gait and to improve BLE flexibility to offload pressure on his back 06/05/24: 148 deg L, 138 deg R 07/05/24: 135 deg R, 140 deg L 07/19/24: 125 deg R, 135 deg L LTG Duration 10 weeks NOT MET Two Impairment strength Impairment 5x STS 16.6 sec Short Term Goal (STG) Pt will be able to perform at least 5/10 reps of sit to stands without UE assistance and without increase in baseline pain in order to demonstrate improved BLE strength for transfers and activity tolerance 06/05/24: 15 sit to stands without pain in back or UE assistance using fwd reaching for anterior weight shift STG Duration 5 weeks MET Care Home Goal (LTG) Pt will be able to perform 5x STS test in less than 14.8 seconds (age-related norm) without UE assistance and without increase in baseline pain in order to demonstrate improved BLE strength for transfers and activity tolerance 07/05/24: 13.1 sec w/o pain LTG Duration 10 weeks MET One Impairment oswestry Impairment Oswestry 16/50 Swiss Machinist Goal (LTG) Pt will report Oswestry <16/50 in order to demonstrate improved symptom management, activity tolerance, and QOL 07/05/24: 12/50 LTG Duration 10 weeks MET Assessment Summary Assessment Pt tolerated session well without any reports of the concordant buttock pain. Session emphasis on creating maintenance program as pt discharging today. Improved form with STS and clams, still requires moderate cueing from PT and pt's due to pt's cognition/memory. Demos better anterior weight shift with STS, but still requires cueing for control with descent. Pt able to tolerate hip IR in seated better than sidelying clams, requiring fewer cues. Progressed hip IR and hip ER to level 2 band. Pt has increased B hamstring rigidity today, did not meet hamstring length goal and had difficulty with stretching. Physical Therapy Plan Frequency and Duration Frequency of Treatment 1-2x/wk Duration of treatment (weeks) 10 Plan of Care Start Date 05/07/24 Plan of Care End Date 07/19/24 Therapeutic Interventions Therapeutic Interventions Balance Training,Coordination Training,Gait Training,Home Exercise Program,Joint Mobilizations,Manual Therapy, Neuromuscular Re-education, Orthotic/Prosthetic Management ,Patient/Caregiver Education, Self-Care/Home Management, Sensory Integration,Soft Tissue Mobilization,Taping, Therapeutic Activities, Therapeutic Exercises Modalities Cold Pack/Ice Massage,Electric Stimulation,Hot Packs, Ultrasound Discharge Physical Therapy Discharge Reasons Plateau in Progress Discharge Comments Maximal progress achieved with PT. Most goals met, maintenance program issued to assist with meeting remaining goals. Maintenance program divided into morning mobility and body mechanics, then maintenance program for strengthening at pt's request. Next Visit Focus/Plan Next Note Type Treatment Note Next Visit Plan Review STS with hinge and add to HEP. Side steps level 3 band review, hip ext level 3 band review and abd, hip flex w/ band, leg press, HS length POC: SIJ stabilization: trial bridge vs STS w/ ball ADD and then band ABD (make sure symmetrical) side steps. retro walk. B carries. HS length, cont with HS stretch. Retry standing hip ext w/ level 1 band and hand support, trial side steps vs standing hip abd, leg press followed by hamstring stretch on machine, continue calf stretch on ALEM
== END 2024-07-23 10:37 | disposition home or self-care (01) ==
LOC: PHYS 13:45
PROVIDERS: Family Provider Internal Medicine; PCP Internal Medicine; Referring Provider Internal Medicine; Visit Provider Internal Medicine
DX: M54.9 Dorsalgia, unspecified (principal); M79.18 Myalgia, other site; G20.B2 Parkinson's disease with dyskinesia, with fluctuations; R53.1 Weakness; R27.8 Other lack of coordination; M25.661 Stiffness of right knee, not elsewhere classified
CPT/HCPCS: 97110; 97140; 97162; 97530; 97535

== ENCOUNTER → 2024-08-08 11:37 | Outpatient (CLI) | payer MEDICARE, OTHER, SELFPAY ==
[2024-08-06 14:36] VITALS: BMI 20.5
[2024-08-08 13:08] LABS: BUN Creatinine Ratio 11.3 (6-22); Blood Urea Nitrogen 36 mg/dL (9-20); Calcium 9.7 mg/dL (8.4-10.2); Carbon Dioxide 23 mmol/L (22-32); Chloride 106 mmol/L (98-107); Estimated Glomerular Filt Rate 18 mL/min (>60); Glucose 101 mg/dL (80-110); HEMOLYSIS < 15 (0-50); Potassium 4.6 mmol/L (3.4-5.1); Sodium 137 mmol/L (137-145)
== END ==
PROVIDERS: Family Provider Internal Medicine; PCP Internal Medicine; Referring Provider Internal Medicine; Visit Provider Internal Medicine
DX: I12.9 Hypertensive chronic kidney disease with stage 1 through stage 4 chronic kidney disease, or unspecified chronic kidney disease (principal); G20.B2 Parkinson's disease with dyskinesia, with fluctuations; N18.4 Chronic kidney disease, stage 4 (severe); Z79.01 Long term (current) use of anticoagulants
CPT/HCPCS: 36415; 80048

== ENCOUNTER → 2024-10-24 13:18 | Outpatient (CLI) | payer MEDICARE, OTHER, SELFPAY ==
[2024-08-06 14:36] VITALS: BMI 20.5
[2024-10-24 13:52] LABS: BUN Creatinine Ratio 12.3 (6-22); Blood Urea Nitrogen 40 mg/dL (9-20); Calcium 9.7 mg/dL (8.4-10.2); Carbon Dioxide 25 mmol/L (22-32); Chloride 107 mmol/L (98-107); Estimated Glomerular Filt Rate 18 mL/min (>60); Glucose 75 mg/dL (80-110); HEMOLYSIS < 15 (0-50); Potassium 4.6 mmol/L (3.4-5.1); Sodium 139 mmol/L (137-145)
== END ==
PROVIDERS: Family Provider Internal Medicine; PCP Internal Medicine; Referring Provider Internal Medicine; Visit Provider Internal Medicine
DX: I12.9 Hypertensive chronic kidney disease with stage 1 through stage 4 chronic kidney disease, or unspecified chronic kidney disease (principal); N18.4 Chronic kidney disease, stage 4 (severe)
CPT/HCPCS: 36415; 80048

== ENCOUNTER → 2024-12-23 13:40 | Outpatient (CLI) | payer MEDICARE, OTHER, SELFPAY ==
[2024-08-06 14:36] VITALS: BMI 20.5
[2024-12-23 14:42] LABS: Hematocrit 41.4 % (41-53); Hemoglobin 13.8 g/dL (13.5-17.5); Mean Corpuscular HGB Conc 33.4 % (30-36); Mean Corpuscular Hemoglobin 31.1 PG (26-34); Mean Corpuscular Volume 93.1 fL (80-100); Platelet Count 193 X10^3/uL (150-400); Red Blood Cell Count 4.44 X10^6/uL (4.5-5.9); Red Cell Distribution Width 14.4 % (11.6-14.8)
[2024-12-23 15:06] LABS: Blood Urea Nitrogen 42 mg/dL (9-20); Calcium 10.1 mg/dL (8.4-10.2); Carbon Dioxide 20 mmol/L (22-32); Chloride 107 mmol/L (98-107); Estimated Glomerular Filt Rate 20 mL/min (>60); Glucose 72 mg/dL (80-110); Sodium 138 mmol/L (137-145)
[2024-12-23 15:07] LABS: HEMOLYSIS 60 (0-50); Potassium 4.8 mmol/L (3.4-5.1)
[2024-12-23 15:25] LABS: Neutrophils Absolute Manual 2800 /uL (3000-5900); Total Cells Counted 100
[2024-12-23 15:26] LABS: RBC Morphology Normal Morphology
== END ==
PROVIDERS: Family Provider Internal Medicine; PCP Internal Medicine; Referring Provider Internal Medicine Nephrology; Visit Provider Internal Medicine Nephrology
DX: D63.1 Anemia in chronic kidney disease (principal); N05.9 Unspecified nephritic syndrome with unspecified morphologic changes; D70.9 Neutropenia, unspecified
CPT/HCPCS: 36415; 80048; 85025